=== PATIENT | male | born 1940 | race Caucasian/White ===

== ENCOUNTER 2016-12-20 12:05 | Inpatient (IN) | payer MEDICARE ==
[~2016-12-20 12:05] MED LIST: 1-ME1LIQ PO; ASPI81CH5 CHEW; CENTTAB9 PO; FISH500C PO; TOPR200T PO
[2016-12-20 12:07] VITALS: BP 147/78; PULSE 78; RESP 15; TEMP 97.7; O2SAT 90
--- NOTE | 2016-12-20 12:26 | PD ---
Physical Exam Time Seen by Provider: 12:24 Narrative 76 y/o male with SOB for one month. He has being referred to Dr. Motley, first appointment next week. Today he went to his office to drop of some information and he was referred here by his office. He endorses a cough and some abck pain as well. Vital signs reviewed. Seen at triage desk. Awaiting bed placement. Data Data Last Documented VS Vital Signs Date Time Temp Pulse Resp B/P Pulse Ox O2 Delivery O2 Flow Rate FiO2 12/20/16 12:07 97.7 78 15 147/78 90 MDM Medical Record Reviewed: Yes Supervised Visit with CASH: No Wali Haney Dec 20, 2016 12:26
[2016-12-20] MEDS ORDERED: SODIUM CHLORIDE 0.9% FLUSH 10 ML FLUSH IVF PRN (14:45)
--- NOTE | 2016-12-20 15:16 | RADRPT ---
EXAM DATE/TIME: 12/20/2016 14:56 [facility] COMPARISON: No previous studies available for comparison. INDICATIONS : Short of breath for a few years, [place]acent[place] MEDICAL HISTORY : former smoker SURGICAL HISTORY : thoracentesis ENCOUNTER: Initial ACUITY: 1 day PAIN SCORE: 0/10 LOCATION: Bilateral chest FINDINGS: The exam demonstrates a large left-sided effusion and compressive atelectasis in the left lower lobe. There is hilar prominence bilaterally. Hilar adenopathy is not excluded. The heart is mildly enlarge d. There are dense interstitial changes within the pulmonary parenchyma. The bony structures are bhumi sly intact. CONCLUSION: 1. Large left pleural effusion. 2. Possible hilar adenopathy. Jaren De La Paz MD on December 20, 2016 at 15:13 Board Certified Radiologist. This report was verified electronically.
[2016-12-20 15:37] VITALS: BP 159/93; PULSE 75; RESP 24; O2SAT 96
[2016-12-20 15:46] LABS: AUTOMATED NEUTROPHIL # 4.5 TH/MM3 (1.8-7.7); BASOPHIL % 0.3 % (0.0-2.0); EOSINOPHIL # 0.1 TH/MM3 (0-0.4); EOSINOPHIL % 1.4 % (0.0-4.0); HEMATOCRIT 49.9 % (39.0-51.0); HEMO FLAGS DIFF FINAL; LYMPH % 14.6 % (9.0-44.0); LYMPHOCYTE # 0.9 TH/MM3 (1.0-4.8); MEAN CELL VOLUME 91.7 FL (80.0-100.0); MEAN CORPUSCULAR HEMOGLOBIN 31.9 PG (27.0-34.0); MEAN CORPUSCULAR HGB CONC 34.8 % (32.0-36.0); MONO % 7.8 % (0.0-8.0); NEUT % 75.9 % (16.0-70.0); PLATELET COUNT 207 TH/MM3 (150-450); RED BLOOD COUNT 5.44 MIL/MM3 (4.50-5.90); RED CELL DISTRIBUTION WIDTH 14.3 % (11.6-17.2); WHITE BLOOD COUNT 5.9 TH/MM3 (4.0-11.0)
--- NOTE | 2016-12-20 15:55 | PD ---
HPI Chief Complaint: Respiratory Symptoms Time Seen by Provider: 14:37 Travel History International Travel<30 days: No Contact w/Intl Traveler<30days: No Traveled to known affect area: No History of Present Illness HPI sent from dr morrison's office since pt noted to be sob and hypoxemic at office, h/ o diagnostic thoracentesis for which he doesn't have diagnosis results. PFSH Past Medical History Cardiac Catheterization: Yes (2004) Cardiovascular Problems: Yes Hypertension: Yes Respiratory: Yes Social History Alcohol Use: Yes (1 BEER/DAY) Tobacco Use: No Substance Use: No Allergies-Medications (Allergen,Severity, Reaction): Coded Allergies: No Known Allergies (Unverified , 12/14/11) Reported Meds & Prescriptions Reported Meds & Active Scripts Active Reported Fish Oil 500 Mg Cap 500 Mg PO DAILY Centrum (Multivitamins) Tab 1 Tab PO DAILY [place] Children's Aspirin (Aspirin) 81 Mg Chew 81 Mg CHEW DAILY Toprol Xl (Metoprolol Succinate) 200 Mg Tab 200 Mg PO DAILY Amlodipine Besylate 10 Mg Tab 10 Mg PO DAILY Review of Systems Except as stated in HPI: all other systems reviewed are Neg Respiratory: Positive: Shortness of Breath Physical Exam Narrative GENERAL: SKIN: Warm and dry. HEAD: Atraumatic. Normocephalic. EYES: Pupils equal and round. No scleral icterus. No injection or drainage. ENT: No nasal bleeding or discharge. Mucous membranes pink and moist. NECK: Trachea midline. No JVD. CARDIOVASCULAR: Regular rate and rhythm. RESPIRATORY: No accessory muscle use. Clear to auscultation on right lung, but only to apex of left lung. no wheezing or stridor GASTROINTESTINAL: Abdomen soft, non-tender, nondistended. Hepatic and splenic margins not palpable. MUSCULOSKELETAL: Extremities without clubbing, cyanosis, or edema. No obvious deformities. NEUROLOGICAL: Awake and alert. No obvious cranial nerve deficits. Motor grossly within normal limits. Five out of 5 muscle strength in the arms and legs. Normal speech. PSYCHIATRIC: Appropriate mood and affect; insight and judgment normal. Data Data Last Documented VS Vital Signs Date Time Temp Pulse Resp B/P Pulse Ox O2 Delivery O2 Flow Rate FiO2 12/20/16 15:37 75 24 159/93 96 Nasal Cannula 3 12/20/16 12:07 97.7 Orders Complete Blood Count With Diff (12/20/16 14:42) Comprehensive Metabolic Panel (12/20/16 14:42) B-Type Natriuretic Peptide (12/20/16 14:42) Act Partial Throm Time (Ptt) (12/20/16 14:42) Prothrombin Time / Inr (Pt) (12/20/16 14:42) Ckmb (Isoenzyme) Profile (12/20/16 14:42) Troponin I (12/20/16 14:42) Iv Access Insert/Monitor (12/20/16 14:42) Electrocardiogram (12/20/16 14:42) Ecg Monitoring (12/20/16 14:42) Oximetry (12/20/16 14:42) Oxygen Administration (12/20/16 14:42) Chest, Single Ap (12/20/16 14:42) Sodium Chloride 0.9% Flush (Ns Flush) (12/20/16 14:45) Labs Laboratory Tests Test 12/20/16 15:30 White Blood Count 5.9 TH/MM3 Red Blood Count 5.44 MIL/MM3 Hemoglobin 17.4 GM/DL Hematocrit 49.9 % Mean Corpuscular Volume 91.7 FL Mean Corpuscular Hemoglobin 31.9 PG Mean Corpuscular Hemoglobin 34.8 % Concent Red Cell Distribution Width 14.3 % Platelet Count 207 TH/MM3 Mean Platelet Volume 8.2 FL Neutrophils (%) (Auto) 75.9 % Lymphocytes (%) (Auto) 14.6 % Monocytes (%) (Auto) 7.8 % Eosinophils (%) (Auto) 1.4 % Basophils (%) (Auto) 0.3 % Neutrophils # (Auto) 4.5 TH/MM3 Lymphocytes # (Auto) 0.9 TH/MM3 Monocytes # (Auto) 0.5 TH/MM3 Eosinophils # (Auto) 0.1 TH/MM3 Basophils # (Auto) 0.0 TH/MM3 CBC Comment DIFF FINAL Differential Comment MDM Medical Decision Making Medical Screen Exam Complete: Yes Emergency Medical Condition: Yes Medical Record Reviewed: Yes Differential Diagnosis pleural effusion, pna, chf Narrative Course see above Critical Care Narrative CRITICAL CARE NOTE: With evaluation of the patient, labs, EKG, receipt of radiologic studies, administration of medications, reevaluation the patient and discussion of the patient with the admitting physicians, the total critical care time was [45] minutes. Time to perform other separately billable procedures was not included in the critical care time. Diagnosis Primary Impression: large left pleural effusion Additional Impression: mild hypoxemia due to pleural effusion Admitting Information Admitting Physician Requests: Admit Ravi Romero MD Dec 20, 2016 15:55
[2016-12-20 15:58] LABS: ANION GAP 10 MEQ/L (5-15); AST (GOT) 35 U/L (15-37); BICARBONATE 27.5 MEQ/L (21.0-32.0); BLOOD UREA NITROGEN 19 MG/DL (7-18); CHLORIDE 104 MEQ/L (98-107); GLOMERULAR FILTRATION RATE 51 ML/MIN (>89); POTASSIUM 3.2 MEQ/L (3.5-5.1); SODIUM (NA) 141 MEQ/L (136-145)
[2016-12-20 16:03] LABS: ALKALINE PHOSPHATASE 156 U/L (45-117); ALT (GPT) 31 U/L (12-78); TOTAL BILIRUBIN ADULT 0.8 MG/DL (0.2-1.0)
[2016-12-20 16:07] LABS: CREATINE KINASE 44 U/L (39-308)
[2016-12-20 16:08] LABS: APTT (PATIENT) 30.3 SEC (24.3-30.1); PROTHROMBIN TIME - PATIENT 10.9 SEC (9.8-11.6)
[2016-12-20] MEDS ORDERED: SODIUM CHLORIDE 0.9% FLUSH 10 ML FLUSH IV FLUSH PRN (16:45)
[2016-12-20] MEDS ORDERED: ONDANSETRON HCL 4 MG/2 ML VIAL IVP PRN (16:45)
[2016-12-20] MEDS ORDERED: ACETAMINOPHEN 325 MG TAB PO PRN ×2 (16:45)
[2016-12-20] MEDS ORDERED: RESP: ALBUTEROL 2.5 MG/IPRATROPIUM 0.5 MG NEB (PRN) NEB (16:45)
[2016-12-20] MEDS ORDERED: NALOXONE HCL 0.4 MG/ML AMP IV PRN (16:45)
[2016-12-20] MEDS ORDERED: ACETAMINOPHEN/HYDROcodone 325 MG/5 MG TAB PO PRN (16:45)
[2016-12-20] MEDS ORDERED: TEMAZEPAM 15 MG CAP PO PRN (16:45)
--- NOTE | 2016-12-20 17:02 | HHI.HP ---
cc: Jose Motley MD [facility] Service [facility] Primary Care Physician Jose Motley MD Admission Diagnosis LARGE LEFT PLEURAL EFFUSION WITH HYPOXEMIA Diagnoses: Chief Complaint: shortness of breath, hypoxia Travel History International Travel<30 Days: No Contact w/Intl Traveler <30 Da: No Traveled to Known Affected Are: No History of Present Illness Written by Florence Munoz, acting as scribe for Dr. Martinez on 12/20/16 at 17:34. 76-year-old male with history of hypertension, hyperlipidemia, BPH, presents with a one-month history of shortness of breath. The patient was at his district associate judge Dr. Motley's office today, who referred him to the ER secondary to shortness of breath and hypoxia. The patient reports about a 1 month ago he took a vacation in [place] where he noticed he was becoming more short of breath, difficulty walking up stairs. He went to the ER in [place], admitted for 5 days, he was diagnosed with pleural effusion, had thoracentesis of the left lung, removed over 2L of fluid. He does not know results of his thoracentesis however he was sent home with oral antibiotics and an unknown inhaler. He went to district associate judge Dr. Motley's office today to start paperwork for his upcoming initial appointment on 12/27, when they noticed him to be more short of breath and therefore referred him to the ER. The patient reports a recent nonproductive dry cough. He denies fevers/chill but does report occasional night sweats over the past week. He endorses significant dyspnea on exertion, alleviated by rest. He denies leg swelling, orthopnea. He reports a 20lbs weight loss in the past 6 months, partially intentional. The patient denies any diagnosis of COPD although does have a history of tobacco use, quit 40years ago. He also denies any history of CAD, although had nuclear stress test in 2011 that showed "moderate sized, mild severity, posterobasal and inferior perfusion defect without evidence of redistribution". The patient also reports history of cardiac catheterization many years ago that was reportedly unremarkable. The patient also reports over the past few days he has noticed bright red blood in his stools. He reports chronic constipation and has a history of hemorrhoids diagnosed on colonoscopy in the past. He believes the rectal bleeding is the same as his prior hemorrhoidal bleeding. Otherwise, he has no other medical complaints at this time. Review of Systems Except as stated in HPI: all other systems reviewed are Neg Past Family Social History Past Medical History Hypertension CAD Possible COPD Hyperlipidemia Colon polyps BPH Head Trauma after syncope/fall, reports "mild head bleed" in Past Surgical History Cardiac catheterization many years ago Tonsillectomy Colonoscopy Reported Medications Fish Oil 500 Mg Cap 500 Mg PO DAILY Centrum (Multivitamins) Tab 1 Tab PO DAILY [employer] Children's Aspirin (Aspirin) 81 Mg Chew 81 Mg CHEW DAILY Toprol Xl (Metoprolol Succinate) 200 Mg Tab 200 Mg PO DAILY Amlodipine Besylate 10 Mg Tab 10 Mg PO DAILY Allergies: Coded Allergies: No Known Allergies (Unverified , 12/14/11) Active Ordered Medications Current Medications Medications (Trade) Dose Ordered Sig/Jung Route Start Time Stop Time Status Last Admin (NS Flush) 2 ml UNSCH PRN IVF 12/20/16 14:45 (NS Flush) 2 ml UNSCH PRN IV FLUSH 12/20/16 16:45 UNV (NS Flush) 2 ml BID IV FLUSH 12/20/16 21:00 UNV (Tylenol) 650 mg Q4H PRN PO 12/20/16 16:45 UNV (Zofran Inj) 4 mg Q6H PRN IVP 12/20/16 16:45 UNV (Restoril) 15 mg HS PRN PO 12/20/16 16:45 UNV (Tylenol) 650 mg Q6H PRN PO 12/20/16 16:45 UNV ([place] 5-325 Mg) 1 tab Q4H PRN PO 12/20/16 16:45 UNV (Narcan Inj) 0.4 mg UNSCH PRN IV 12/20/16 16:45 UNV Family History Mother with CAD, CABG in her 80s Father with dementia and emphysema Social History Quit smoking 1PPD tobacco 40 years ago Occasional alcohol use with 1-2 beers maybe once a month Denies any illicit drug use Physical Exam Vital Signs Vital Signs Date Time Temp Pulse Resp B/P Pulse Ox O2 Delivery O2 Flow Rate FiO2 6/5/17 15:37 75 24 159/93 96 Nasal Cannula 3 12/20/16 14:47 97 Nasal Cannula 3 12/20/16 12:07 97.7 78 15 147/78 90 Physical Exam GENERAL: Well-nourished, well-developed elderly male patient in NAD. SKIN: Warm and dry. No rash. HEAD: Normocephalic. Atraumatic. EYES: Pupils equal and round. No scleral icterus. No injection or drainage. ENT: No nasal bleeding or discharge. Mucous membranes pink and moist. NECK: Supple. Trachea midline. CARDIOVASCULAR: Regular rate and rhythm. S1, S2 noted. No murmur appreciated. RESPIRATORY: No accessory muscle use. Breath sounds significantly diminished at left mid to lower lung. GASTROINTESTINAL: Abdomen soft, non-tender, nondistended. Normoactive bowel sounds x4. MUSCULOSKELETAL: No obvious deformities. Extremities without clubbing, cyanosis , or edema. NEUROLOGICAL: Awake and alert. No obvious cranial nerve deficits. Motor grossly within normal limits. Normal speech. PSYCHIATRIC: Appropriate mood and affect; insight and judgment normal. Laboratory Laboratory Tests Test 12/20/16 15:30 White Blood Count 5.9 Red Blood Count 5.44 Hemoglobin 17.4 Hematocrit 49.9 Mean Corpuscular Volume 91.7 Mean Corpuscular Hemoglobin 31.9 Mean Corpuscular Hemoglobin 34.8 Concent Red Cell Distribution Width 14.3 Platelet Count 207 Mean Platelet Volume 8.2 Neutrophils (%) (Auto) 75.9 Lymphocytes (%) (Auto) 14.6 Monocytes (%) (Auto) 7.8 Eosinophils (%) (Auto) 1.4 Basophils (%) (Auto) 0.3 Neutrophils # (Auto) 4.5 Lymphocytes # (Auto) 0.9 Monocytes # (Auto) 0.5 Eosinophils # (Auto) 0.1 Basophils # (Auto) 0.0 CBC Comment DIFF FINAL Differential Comment Prothrombin Time 10.9 Prothromb Time International 1.0 Ratio Activated Partial 30.3 Thromboplast Time Sodium Level 141 Potassium Level 3.2 Chloride Level 104 Carbon Dioxide Level 27.5 Anion Gap 10 Blood Urea Nitrogen 19 Creatinine 1.37 Estimat Glomerular Filtration 51 Rate Random Glucose 94 Calcium Level 9.7 Total Bilirubin 0.8 Aspartate Amino Transf 35 (AST/SGOT) Alanine Aminotransferase 31 (ALT/SGPT) Alkaline Phosphatase 156 Total Creatine Kinase 44 Troponin I LESS THAN 0.02 B-Type Natriuretic Peptide 66 Total Protein 7.8 Albumin 3.6 Result Diagram: 12/20/16 1530 12/20/16 1530 Imaging Last Impressions Chest X-Ray 12/20/16 1442 Signed Impressions: Service Date/Time: Tuesday, December 20, 2016 14:56 - CONCLUSION: 1. Large left pleural effusion. 2. Possible hilar adenopathy. Jaren De La Paz MD Assessment and Plan Problem List: (1) Pleural effusion ICD Code: J90 Status: Acute Assessment and Plan 76-year-old male with history of hypertension, CAD, COPD, hyperlipidemia, BPH, presents with a one-month history of shortness of breath. The patient was at his district associate judge Dr. Motley's office today, who referred him to the ER secondary to shortness of breath and hypoxia. Left Pleural Effusion: Unclear etiology. Afebrile, no leukocytosis. CXR images reviewed, shows large left pleural effusion with possible hilar adenopathy. O2 sat 90% on RA upon arrival. -Consult district associate judge Dr. Motley -Ordered diagnostic and therapeutic thoracentesis -Duonebs q2h prn -O2 as needed -obtain records from previous hospitalization Possible COPD: patient denies diagnosis of this however has history of tobacco use -continue duonebs prn -pulmonology consulted as above HTN/CAD/HLD: chronic, stable -continue patient's home medications including metoprolol and norvasc after RN to verify home meds -aspirin on hold for thoracentesis -monitor BP, adjust antihypertensives as needed YADI: Cr 1.37, unclear if acute vs chronic. Previous labs 2011 with Cr 0.98. -monitor BMP -avoid nephrotoxins Hypokalemia: K 3.2. -give po KCl replacement -repeat BMP in the am BRBPR: suspect hemorrhoid bleeding, diagnosed on previous colonoscopy. -Patient counseled on avoiding constipation. -start on Gianna-Colace 1 tab po bid -monitor for constipation -monitor H&H, currently Hgb stable at 17.4 All other medical conditions stable, continue home medications once med rec updated. DVT Prophylaxis: teds/SCDs, avoid chemical prophylaxis with upcoming thoracentesis This note was transcribed by jt Munoz. I, Dr. Zacarias Martinez personally performed the history, physical exam, and medical decision making; and confirmed the accuracy of the information in the transcribed note. Authenticated by Dr. Zacarias Martinez on 12/20/16 at 18:34. Discussed Condition With Patient, ER MD, MET[employer]TER Physician Certification 2 Midnight Certification Type: Admission for Inpatient Services Order for Inpatient Services The services are ordered in accordance with Medicare regulations or non- Medicare payer requirements, as applicable. In the case of services not specified as inpatient-only, they are appropriately provided as inpatient services in accordance with the 2-midnight benchmark. Estimated LOS (days): 2 days is the estimated time the patient will need to remain in the hospital, assuming treatment plan goals are met and no additional complications. Post-Hospital Plan: Home Florence Munoz PA-C Dec 20, 2016 17:02 Zacarias Martinez MD Dec 20, 2016 18:34
[2016-12-20 17:04] VITALS: BP 142/88; PULSE 79; RESP 16; O2SAT 95
[2016-12-20 18:00] VITALS: BP 140/80
[2016-12-20] MEDS ORDERED: POTASSIUM CHLORIDE 20 MEQ CONTROLLED RELEASE TAB PO ONE (18:00)
[2016-12-20 20:00] VITALS: BP 164/86; PULSE 81; RESP 18; TEMP 97; O2SAT 91
[2016-12-20] MEDS: DOCUSATE SODIUM 50 MG/SENNA 8.6 MG TAB PO SCH (20:47)
[2016-12-20] MEDS: SODIUM CHLORIDE 0.9% FLUSH 10 ML FLUSH IV FLUSH SCH (20:48)
[2016-12-20] MEDS ORDERED: ENALAPRILAT 1.25 MG/ML VIAL IV PUSH PRN (21:00)
[2016-12-21] VITALS (9 sets, daily range): BP systolic 136–163; BP diastolic 75–91; PULSE 74–88; RESP 16–20; TEMP 96.4–98.7; O2SAT 90–96
[2016-12-21 07:08] LABS: AUTOMATED NEUTROPHIL # 3.3 TH/MM3 (1.8-7.7); BASOPHIL % 0.7 % (0.0-2.0); EOSINOPHIL # 0.1 TH/MM3 (0-0.4); EOSINOPHIL % 3.1 % (0.0-4.0); HEMATOCRIT 45.8 % (39.0-51.0); HEMO FLAGS DIFF FINAL; LYMPH % 14.2 % (9.0-44.0); LYMPHOCYTE # 0.7 TH/MM3 (1.0-4.8); MEAN CELL VOLUME 92.3 FL (80.0-100.0); MEAN CORPUSCULAR HEMOGLOBIN 30.9 PG (27.0-34.0); MEAN CORPUSCULAR HGB CONC 33.4 % (32.0-36.0); MONO % 14.2 % (0.0-8.0); NEUT % 67.8 % (16.0-70.0); PLATELET COUNT 183 TH/MM3 (150-450); RED BLOOD COUNT 4.96 MIL/MM3 (4.50-5.90); RED CELL DISTRIBUTION WIDTH 14.5 % (11.6-17.2); WHITE BLOOD COUNT 4.8 TH/MM3 (4.0-11.0)
[2016-12-21 07:45] LABS: ALKALINE PHOSPHATASE 139 U/L (45-117); ALT (GPT) 24 U/L (12-78); ANION GAP 7 MEQ/L (5-15); AST (GOT) 27 U/L (15-37); BICARBONATE 27.6 MEQ/L (21.0-32.0); BLOOD UREA NITROGEN 16 MG/DL (7-18); CHLORIDE 108 MEQ/L (98-107); GLOMERULAR FILTRATION RATE 68 ML/MIN (>89); SODIUM (NA) 143 MEQ/L (136-145); TOTAL BILIRUBIN ADULT 0.6 MG/DL (0.2-1.0)
[2016-12-21 07:54] LABS: POTASSIUM 2.9 MEQ/L (3.5-5.1)
[2016-12-21] MEDS: METOPROLOL SUCCINATE 50 MG EXTENDED RELEASE TAB PO SCH (08:31)
[2016-12-21] MEDS: SODIUM CHLORIDE 0.9% FLUSH 10 ML FLUSH IV FLUSH SCH ×2 (08:34→21:30)
--- NOTE | 2016-12-21 10:23 | HHI.PR ---
Subjective Remarks Follow-up left large pleural effusion 12/21/16-patient seen and examined reports some continued shortness of breath, low potassium and blood pressure slightly up. Objective Vitals Vital Signs Date Time Temp Pulse Resp B/P Pulse Ox O2 Delivery O2 Flow Rate FiO2 12/21/16 09:31 98.0 85 20 149/85 91 12/21/16 08:34 96.6 85 20 160/85 91 12/21/16 04:00 97.0 81 18 160/78 92 12/21/16 00:00 96.7 88 18 147/79 91 12/20/16 20:00 94 Nasal Cannula 3.00 12/20/16 20:00 97.0 81 18 164/86 91 12/20/16 18:00 77 24 140/80 95 Nasal Cannula 3 12/20/16 17:04 79 16 142/88 95 Nasal Cannula 3 12/20/16 15:37 75 24 159/93 96 Nasal Cannula 3 12/20/16 14:47 97 Nasal Cannula 3 12/20/16 12:07 97.7 78 15 147/78 90 Result Diagram: 12/21/1662612/21/16626 Imaging Last Impressions Chest X-Ray 12/20/16 1442 Signed Impressions: Service Date/Time: Tuesday, December 20, 2016 14:56 - CONCLUSION: 1. Large left pleural effusion. 2. Possible hilar adenopathy. Jaren De La Paz MD Objective Remarks GENERAL: NAD SKIN: Warm and dry. HEAD: Normocephalic. EYES: No scleral icterus. No injection or drainage. NECK: Supple, trachea midline. No JVD or lymphadenopathy. CARDIOVASCULAR: Regular rate and rhythm without murmurs, gallops, or rubs. RESPIRATORY: Breath sounds decrease L>R . No accessory muscle use. GASTROINTESTINAL: Abdomen soft, non-tender, nondistended. MUSCULOSKELETAL: No cyanosis, or edema. BACK: Nontender without obvious deformity. No CVA tenderness. A/P Problem List: (1) Pleural effusion ICD Code: J90 Status: Acute (2) Benign hypertension ICD Code: I10 Status: Acute (3) Hypokalemia ICD Code: E87.6 Status: Acute Assessment and Plan 76-year-old man with Left Pleural Effusion: Unclear etiology. -Consult preparer making department Dr. Motley -Plan for diagnostic and therapeutic thoracentesis today 12/21/16 -Duo nebs q2h prn, O2 as needed -obtain records from previous hospitalization Possible COPD: patient denies diagnosis of this however has history of tobacco use -continue duo nebs prn -pulmonology consulted as above HTN/CAD/HLD: chronic, stable -continue patient's home medications including metoprolol and norvasc after RN to verify home meds -aspirin on hold for thoracentesis -Resume Toprol-XL YADI: Cr 1.37, unclear if acute vs chronic. Previous labs 2011 with Cr 0.98. -monitor BMP -avoid nephrotoxins Hypokalemia: -give po KCl replacement 80 mEq today and monitor K BRBPR: suspect hemorrhoid bleeding, diagnosed on previous colonoscopy. -Patient counseled on avoiding constipation. -Continue on Gianna-Colace 1 tab po bid -monitor for constipation -monitor H&H, currently Hgb stable at 17.4 on admission All other medical conditions stable, continue home medications once med rec updated. DVT Prophylaxis: teds/SCDs, avoid chemical prophylaxis with upcoming thoracentesis Zacarias Martinez MD Dec 21, 2016 10:23
[2016-12-21] MEDS ORDERED: POTASSIUM CHLORIDE 10 MEQ CONTROLLED RELEASE TAB PO ONE (10:30)
--- NOTE | 2016-12-21 10:57 | RADRPT ---
EXAM DATE/TIME: 12/21/2016 10:32 [facility] COMPARISON: CHEST SINGLE AP, December 20, 2016, 14:56. INDICATIONS : Post left side thoracentesis. MEDICAL HISTORY : former smoker SURGICAL HISTORY : thoracentesis ENCOUNTER: Initial ACUITY: 1 day PAIN SCORE: 0/10 LOCATION: Bilateral chest FINDINGS: Single view of the chest demonstrates interval left thoracentesis. There is near complete removal of the patient's left effusion with consolidative change is seen in the left lung base. No pneumothorax is seen. The heart is normal size. Bony structures are intact. CONCLUSION: 1. No pneumothorax identified following left-sided thoracentesis. Jaren De La Paz MD on December 21, 2016 at 10:54 Board Certified Radiologist. This report was verified electronically.
--- NOTE | 2016-12-21 11:10 | RADRPT ---
EXAM DATE/TIME: 12/21/2016 09:46 [facility] COMPARISON: No previous studies available for comparison. INDICATIONS : Left pleural effusion. MEDICAL HISTORY : Hypercholesterolemia. Hypertension. Coronary artery disease. Tobacco use. SURGICAL HISTORY : Tonsillectomy. Cardiac cath. ENCOUNTER: Initial ACUITY: 2 weeks PAIN SCORE: 1/10 LOCATION: Left chest FLUID: Total volume of 2,400 cc of clear, red fluid was removed. Fluid was sent to lab for ordered studies. TECHNIQUE: 1. Ultrasound guidance for thoracentesis. 2. Thoracentesis. The risks, benefits, and alternatives to ultrasound guided thoracentesis were explained to the patien t in lay simple terms, including the risk of bleeding and infection. Written and verbal informed con sent was obtained. Appropriate area for thoracentesis was marked under ultrasound guidance with the patient in the uprig ht position. Overlying skin was prepped and draped in the usual sterile fashion and with local anest hetic, a dermatotomy was made with an 11 blade scalpel. A 6 [place] thoracentesis catheter was placed in the pleural space and fluid was removed. Catheter was then removed and a sterile dressing applie d. There were no immediate complications. The patient tolerated the procedure well and the left the ultrasound suite in stable condition. Chest radiograph is to be obtained. CONCLUSION: Uncomplicated ultrasound guided thoracentesis. Jaren De La Paz MD on December 21, 2016 at 11:08 Board Certified Radiologist. This report was verified electronically.
[2016-12-21] MEDS ORDERED: POTASSIUM CHLORIDE 20 MEQ CONTROLLED RELEASE TAB PO ONE (12:30)
[2016-12-21] MEDS: DOCUSATE SODIUM 50 MG/SENNA 8.6 MG TAB PO SCH ×2 (12:53→21:29)
[2016-12-21 13:05] LABS: PLEURAL FLUID LYMPHS 85 %
[2016-12-21] MEDS ORDERED: IOHEXOL 350 MG/ML 10 ML VIAL (for RAD DIAG) IV ONE (14:23)
[2016-12-21] MEDS ORDERED: AMLO10 PO (15:48)
[2016-12-21] MEDS ORDERED: METO100T PO ×2 (15:48)
[2016-12-21] MEDS ORDERED: METO50TA PO (15:48)
[2016-12-21] MEDS ORDERED: LOVA20TA PO (15:48)
--- NOTE | 2016-12-21 15:50 | RADRPT ---
EXAM DATE/TIME: 12/21/2016 14:17 [facility] COMPARISON: CHEST EXPIRATION ONLY, December 21, 2016, 10:32. CHEST SINGLE AP, December 20, 2016, 14:56. US GUIDED THORA CENTESIS LEFT, December 21, 2016, 9:46. INDICATIONS : Recurrent left pleural effusion post thoracentesis. IV CONTRAST: 60 cc Omnipaque 350 (iohexol) IV RADIATION DOSE: 5.29 CTDIvol (mGy) MEDICAL HISTORY : Cardiovascular disease. Hypertension. SURGICAL HISTORY : None. ENCOUNTER: Initial ACUITY: 1 month PAIN SCALE: 0/10 LOCATION: Left chest TECHNIQUE: Volumetric scanning of the chest was performed. Using automated exposure control and adjustment of t he mA and/or kV according to patient size, radiation dose was kept as low as reasonably achievable to obtain optimal diagnostic quality images. FINDINGS: There is a mild amount of heterogeneous density fluid in the left lower chest measuring up to 1.6 cm in dimension. There is some fluid tracking along the inferior aspect of the major fissure. There is also some nodular thickening of the pleura throughout the left lower chest, measuring up to 1.0 cm i n dimension. There is some mild consolidation adjacent to the fluid in the costophrenic angle with a ir bronchograms. Several subpleural cysts are seen in the posterior lower lungs bilaterally. Modera te severity upper lobe emphysema, right greater than left. No focal infiltrates in the right lung. No evidence of pneumothorax. There is good delineation of the great vessels and mediastinum. Pretracheal lymph node measures 2.1 cm. Right subcarinal node measures 1.7 cm. Right suprahilar node measures 2.5 cm. CONCLUSION: 1. Small amount of fluid in the left pleural space and patchy areas of pleural thickening in the left chest. There is also small area of infiltrate at the left base. 2. There are multiple mildly enlarged right hilar and middle mediastinal nodes measuring up to 2.5 cm . 3. No evidence of pneumothorax. Manjit Maharaj MD on December 21, 2016 at 15:40 Board Certified Radiologist. This report was verified electronically.
--- NOTE | 2016-12-21 16:33 | MB ---
cc: Jose BREEN M.D. DATE OF CONSULTATION: 12/21/2016 REASON FOR CONSULTATION: Pulmonary consultation for pleural effusion. HISTORY Mr. Austin is a 76-year-old white male who recently returned from [place], where he had been hospitalized for 5 days with a large left pleural effusion. He tells me that they drained about 2 liters of fluid off of him, told him that the cultures and cytology were negative and encouraged him to follow up with his local physicians upon returning to [place]. He had contacted my office through his primary care physician and we were scheduled to see him next week. Unfortunately became more short of breath and had come into the emergency room yesterday and again he had a large left pleural effusion which was drained yesterday with all cultures cytologies and chemistries pending. He feels much better. He has had no significant prior pulmonary disease. However, he was a two pack per day smoker for about 20 years, quit smoking 35 years ago. He also has an interesting history as a child from the age of about 5-18. 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 The young children used to play in the area and slide down the gypsum board into a river where they swam. He has had no associated symptoms in the chest such as cough or congestion. No hemoptysis. He has a dull ache on that side that has been present even after the fluid is drained. He has also had an unexplained 15-20 pounds with weight loss over the last 6 months although his appetite is excellent. PAST MEDICAL HISTORY 1. Hypertension. 2. He had a fall with some type of mild intercerebral bleed in August but he was in [place] we do not have those records. There is a history of having had a catheterization with mild coronary disease many years ago. 3. He has had colon polyps 4. Benign prostatic hypertrophy. 5. He has had a previous tonsillectomy. 6. Normal colonoscopy. ALLERGIES None known. MEDICATIONS: Medications were reviewed in the EMR. SOCIAL HISTORY living with his . 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 REVIEW OF SYSTEMS Review of systems other than that noted above he has had no fevers. He does not feel ill, he has had no GI symptoms. No chronic edema. No history of thromboembolism. PHYSICAL EXAMINATION VITAL SIGNS: 96 degrees, pulse 70, respirations 18, blood pressure is 150/80 and respirations are comfortable at 16, O2 sats 94% room air. HEAD, EYES, EARS, NOSE, AND THROAT: Sclerae anicteric. NECK: No adenopathy in the neck, supraclavicular region. CHEST: Chest is completely clear. No rales, wheezes or rubs. CARDIOVASCULAR SYSTEM: Regular rhythm. No harsh murmur. No audible S3. EXTREMITIES: No edema or calf tenderness. No cyanosis or clubbing. LABORATORY DATA White count 4800, hemoglobin is 15, BUN and creatinine are normal. Alkaline phosphatase is mildly elevated at 140. Initial fluid reports white count is not particularly high at 1600, 57,000 red cells, predominately lymphocytes on the white cells. Chemistries are pending. Cultures and cytology pending. DISCUSSION Mr. Austin presents with a large recurrent left effusion just within a month of having been hospitalized in [place]. The prior history of tobacco use over 20 years and this asbestos exposure is concerning any may have underlying asbestosis more mesothelioma. ASSESSMENT AND PLAN: I have scheduled a CT scan for this afternoon. AP stable and less cultures were positive on the fluid we could probably discharge him and I can continue this evaluation as an outpatient. If in fact this is related to his asbestos exposure the pleural fluid may not be definitive and we may end up needing a thoracoscopic evaluation and biopsy. Further diagnostic and/or therapeutic range will depend on results of the studies and his ongoing clinical course. Thank you for asking me to see him at your consultation. R. MD JEAN Espinosa/theo /1:36 PM /4:18 PM
--- NOTE | 2016-12-21 22:18 | EKG ---
Date Performed: 12/20/2016 Time Performed: 14:53:00 PTAGE: 76 years EKG: Sinus rhythm NONSPECIFIC T-WAVE ABNORMALITY Since previous tracing, no significant change noted BORDERLINE ECG PREVIOUS TRACING : 12/14/2011 14.57.44 DOCTOR: Lia Rodriguez Interpretating Date/Time 12/21/2016 22:17:00
[2016-12-22] VITALS: BP 154/86; PULSE 75; RESP 18; TEMP 98.2; O2SAT 94
[2016-12-22 04:00] VITALS: BP 135/70; PULSE 70; RESP 16; TEMP 98.9; O2SAT 95
[2016-12-22 08:00] VITALS: BP 151/96; PULSE 81; RESP 14; TEMP 96; O2SAT 97
[2016-12-22] MEDS: METOPROLOL SUCCINATE 50 MG EXTENDED RELEASE TAB PO SCH (08:10)
[2016-12-22] MEDS: DOCUSATE SODIUM 50 MG/SENNA 8.6 MG TAB PO SCH (08:10)
[2016-12-22] MEDS: SODIUM CHLORIDE 0.9% FLUSH 10 ML FLUSH IV FLUSH SCH (08:10)
--- NOTE | 2016-12-22 08:54 | HHI.PR ---
Subjective Remarks Follow-up left large pleural effusion 12/21/16-patient seen and examined reports some continued shortness of breath, low potassium and blood pressure slightly up. 12/22/16-patient seen and examined, he is status post left thoracentesis with 2.4 L out. Currently denies any chest pain or shortness of breath. Objective Vitals Vital Signs Date Time Temp Pulse Resp B/P Pulse Ox O2 Delivery O2 Flow Rate FiO2 12/22/16 08:00 96.0 81 14 151/96 97 12/22/16 04:00 98.9 70 16 135/70 95 12/22/16 00:00 98.2 75 18 154/86 94 12/21/16 21:20 Nasal Cannula 3.00 12/21/16 20:00 98.7 77 16 136/75 93 12/21/16 16:35 98.2 76 20 160/78 90 12/21/16 12:35 96.4 74 20 163/85 94 12/21/16 11:05 74 16 146/87 96 12/21/16 10:50 96 Nasal Cannula 3.00 12/21/16 10:50 98.1 76 16 150/91 96 12/21/16 10:28 Nasal Cannula 3.00 12/21/16 09:31 98.0 85 20 149/85 91 I/O 12/21/16 12/21/16 12/21/16 12/22/16 12/22/16 12/22/16 07:00 15:00 23:00 07:00 15:00 23:00 Intake Total 480 ml 240 ml Balance 480 ml 240 ml Intake Oral 480 ml 240 ml # Voids 1 5 2 2 Result Diagram: 12/21/16 0627 12/21/16 06 Imaging Last Impressions Thoracentesis Ultrasound 12/21/16 0000 Signed Impressions: Service Date/Time: Wednesday, December 21, 2016 09:46 - CONCLUSION: Uncomplicated ultrasound guided thoracentesis. Jaren De La Paz MD Chest X-Ray 12/21/16 0000 Signed Impressions: Service Date/Time: Wednesday, December 21, 2016 10:32 - CONCLUSION: 1. No pneumothorax identified following left-sided thoracentesis. Jaren De La Paz MD Chest CT 12/21/16 0000 Signed Impressions: Service Date/Time: Wednesday, December 21, 2016 14:17 - CONCLUSION: 1. Small amount of fluid in the left pleural space and patchy areas of pleural thickening in the left chest. There is also small area of infiltrate at the left base. 2. There are multiple mildly enlarged right hilar and middle mediastinal nodes measuring up to 2.5 cm. 3. No evidence of pneumothorax. Manjit Maharaj MD Objective Remarks GENERAL: NAD SKIN: Warm and dry. HEAD: Normocephalic. EYES: No scleral icterus. No injection or drainage. NECK: Supple, trachea midline. No JVD or lymphadenopathy. CARDIOVASCULAR: Regular rate and rhythm without murmurs, gallops, or rubs. RESPIRATORY: Breath sounds decrease L>R . No accessory muscle use. GASTROINTESTINAL: Abdomen soft, non-tender, nondistended. MUSCULOSKELETAL: No cyanosis, or edema. BACK: Nontender without obvious deformity. No CVA tenderness. Procedures US Guided thoracentesis A/P Problem List: (1) Pleural effusion ICD Code: J90 Status: Acute (2) Benign hypertension ICD Code: I10 Status: Acute (3) Hypokalemia ICD Code: E87.6 Status: Acute Assessment and Plan 76-year-old man with Left Pleural Effusion: Unclear etiology. -Appreciate input from environmental planner Dr. Motley -s/p diagnostic and therapeutic thoracentesis 12/21/16 pending cytology and culture report -CT chest noted in review -Duo nebs q2h prn, O2 as needed -obtain records from previous hospitalization Possible COPD: patient denies diagnosis of this however has history of tobacco use -continue duo nebs prn -pulmonology input appreciated HTN/CAD/HLD: chronic, stable -continue patient's home medications including metoprolol and norvasc after RN to verify home meds -Resume aspirin -Continue Toprol-XL YADI: Cr 1.37, unclear if acute vs chronic. Previous labs 2011 with Cr 0.98. -monitor BMP -avoid nephrotoxins Hypokalemia: -Status post KCl replacement BRBPR: suspect hemorrhoid bleeding, diagnosed on previous colonoscopy. -Patient counseled on avoiding constipation. -Continue on Gianna-Colace 1 tab po bid -monitor for constipation -monitor H&H, currently Hgb stable at 17.4 on admission All other medical conditions stable, continue home medications once med rec updated. DVT Prophylaxis: teds/SCDs, avoid chemical prophylaxis with upcoming thoracentesis Zacarias Martinez MD Dec 22, 2016 08:54
[2016-12-22] MEDS ORDERED: VENTAER INH (08:56)
[2016-12-22] MEDS ORDERED: IPRA17I INH (08:56)
--- NOTE | 2016-12-22 08:59 | HHI.DS ---
Discharge Summary Admission Date Dec 20, 2016 at 16:13 Discharge Date: Dec 22, 2016 Admitting Diagnosis LARGE LEFT PLEURAL EFFUSION WITH HYPOXEMIA (1) Pleural effusion ICD Code: J90 (2) Benign hypertension ICD Code: I10 (3) Hypokalemia ICD Code: E87.6 Procedures US Guided thoracentesis Brief History - From Admission Written by Florence Munoz, acting as scribe for Dr. Martinez on 12/20/16 at 17:34. 76-year-old male with history of hypertension, hyperlipidemia, BPH, presents with a one-month history of shortness of breath. The patient was at his tipple mechanic Dr. Motley's office today, who referred him to the ER secondary to shortness of breath and hypoxia. The patient reports about a 1 month ago he took a vacation in [place] where he noticed he was becoming more short of breath, difficulty walking up stairs. He went to the ER in [place], admitted for 5 days, he was diagnosed with pleural effusion, had thoracentesis of the left lung, removed over 2L of fluid. He does not know results of his thoracentesis however he was sent home with oral antibiotics and an unknown inhaler. He went to tipple mechanic Dr. Motley's office today to start paperwork for his upcoming initial appointment on 12/27, when they noticed him to be more short of breath and therefore referred him to the ER. The patient reports a recent nonproductive dry cough. He denies fevers/chill but does report occasional night sweats over the past week. He endorses significant dyspnea on exertion, alleviated by rest. He denies leg swelling, orthopnea. He reports a 20lbs weight loss in the past 6 months, partially intentional. The patient denies any diagnosis of COPD although does have a history of tobacco use, quit 40years ago. He also denies any history of CAD, although had nuclear stress test in 2011 that showed "moderate sized, mild severity, posterobasal and inferior perfusion defect without evidence of redistribution". The patient also reports history of cardiac catheterization many years ago that was reportedly unremarkable. The patient also reports over the past few days he has noticed bright red blood in his stools. He reports chronic constipation and has a history of hemorrhoids diagnosed on colonoscopy in the past. He believes the rectal bleeding is the same as his prior hemorrhoidal bleeding. Otherwise, he has no other medical complaints at this time. CBC/BMP: 12/21/1662612/21/16626 Significant Findings Laboratory Tests Test 12/20/16 12/21/16 12/21/16 15:30 06:27 10:10 Hemoglobin 17.4 GM/DL (13.0-17.0) Neutrophils (%) (Auto) 75.9 % (16.0-70.0) Lymphocytes # (Auto) 0.9 TH/MM3 0.7 TH/MM3 (1.0-4.8) (1.0-4.8) Activated Partial 30.3 SEC Thromboplast Time (24.3-30.1) Potassium Level 3.2 MEQ/L 2.9 MEQ/L (3.5-5.1) (3.5-5.1) Blood Urea Nitrogen 19 MG/DL (7-18) Creatinine 1.37 MG/DL (0.60-1.30) Estimat Glomerular Filtration 51 ML/MIN (>89) 68 ML/MIN (>89) Rate Alkaline Phosphatase 156 U/L 139 U/L (45-117) (45-117) Troponin I LESS THAN 0.02 NG/ML (0.02-0.05) Monocytes (%) (Auto) 14.2 % (0.0-8.0) Chloride Level 108 MEQ/L (98-107) Albumin 3.0 GM/DL (3.4-5.0) Lactate Dehydrogenase 267 U/L (87-241) Pleural Fluid WBC 1659 /MM3 (0-10) Pleural Fluid RBC 84930 /MM3 (0-0) Imaging Last Impressions Thoracentesis Ultrasound 12/21/16 0000 Signed Impressions: Service Date/Time: Wednesday, December 21, 2016 09:46 - CONCLUSION: Uncomplicated ultrasound guided thoracentesis. Jaren De La Paz MD Chest X-Ray 12/21/16 0000 Signed Impressions: Service Date/Time: Wednesday, December 21, 2016 10:32 - CONCLUSION: 1. No pneumothorax identified following left-sided thoracentesis. Jaren De La Paz MD Chest CT 12/21/16 0000 Signed Impressions: Service Date/Time: Wednesday, December 21, 2016 14:17 - CONCLUSION: 1. Small amount of fluid in the left pleural space and patchy areas of pleural thickening in the left chest. There is also small area of infiltrate at the left base. 2. There are multiple mildly enlarged right hilar and middle mediastinal nodes measuring up to 2.5 cm. 3. No evidence of pneumothorax. Manjit Maharaj MD PE at Discharge GENERAL: NAD SKIN: Warm and dry. HEAD: Normocephalic. EYES: No scleral icterus. No injection or drainage. NECK: Supple, trachea midline. No JVD or lymphadenopathy. CARDIOVASCULAR: Regular rate and rhythm without murmurs, gallops, or rubs. RESPIRATORY: Breath sounds decrease L>R . No accessory muscle use. GASTROINTESTINAL: Abdomen soft, non-tender, nondistended. MUSCULOSKELETAL: No cyanosis, or edema. BACK: Nontender without obvious deformity. No CVA tenderness. Hospital Course Patient was admitted secondary to left pleural effusion for which intervention radiology was consulted and he underwent left ultrasound-guided thoracentesis with removal 2.4 L fluid out which was sent for cytology. Pulmonary medicine was consulted. Patient was continued on his medications for other chronic medical conditions. DVT and GI prophylaxis were provided. Prior to discharge, patient's condition improved and vitals remained stable. He will need outpatient follow-up with pulmonary medicine Pt Condition on Discharge: Stable Discharge Disposition: Discharge Home Discharge Time: <= 30 minutes Discharge Instructions DIET: Follow Instructions for: Heart Healthy Diet Activities you can perform: Regular-No Restrictions Follow up Referrals: PCP Follow-up - 1 Week Pulmonology New Medications: Albuterol 18 GM Inh (Ventolin Hfa 18 GM Inh) 90 Mcg/Act Aer 2 PUFF INH Q4-6H PRN SHORTNESS OF BREATH #1 Ref 3 INHALER Ipratropium HFA 12.9 GM Inh (Atrovent HFA 12.9 GM Inh) 17 Mcg/Act Aer 2 PUFF INH Q6HR PRN SHORTNESS OF BREATH #1 Ref 3 INHALER Continued Medications: Amlodipine (Norvasc) 10 Mg Tab 10 MG PO DAILY Blood Pressure Management #30 Ref 0 TAB Lovastatin (Lovastatin) 20 Mg Tab 20 MG PO DAILY Cholesterol Management #30 Ref 0 TAB Metoprolol Tartrate (Metoprolol Tartrate) 100 Mg Tab 100 MG PO AC BREAKFAST #30 Ref 0 TAB Metoprolol Tartrate (Metoprolol Tartrate) 50 Mg Tab 50 MG PO HS #30 Ref 0 TAB Zacarias Martinez MD Dec 22, 2016 08:59
[2016-12-22 09:30] LABS: BICARBONATE 29.7 MEQ/L (21.0-32.0)
[2016-12-22 09:31] LABS: POTASSIUM 3.7 MEQ/L (3.5-5.1)
[2016-12-23 04:08] LABS: BODY FLUID LDH 381 U/L (()); BODY FLUID LDH SOURCE PLEURAL FLUID (())
== END 2016-12-22 10:52 | disposition home or self-care (01) | DRG 188 ==
LOC: NEPC 12:05 → NEDA 16:13 → HOCB 19:18
PROVIDERS: ADMIT Hospitalist; ATTEND Hospitalist
PROC: 0W9B3ZX Drainage of Left Pleural Cavity, Percutaneous Approach, Diagnostic (ICD-10-PCS; principal; 2016-12-21)
DX: J90 Pleural effusion, not elsewhere classified (principal); I10 Essential (primary) hypertension; E78.5 Hyperlipidemia, unspecified; N40.0 Benign prostatic hyperplasia without lower urinary tract symptoms; K59.09 Other constipation; E87.6 Hypokalemia; I25.10 Atherosclerotic heart disease of native coronary artery without angina pectoris; K64.9 Unspecified hemorrhoids; Z77.090 Contact with and (suspected) exposure to asbestos; Z87.891 Personal history of nicotine dependence
CPT/HCPCS: 32555; 71010; 71260; 80048; 80053; 82550; 82945; 83615; 83880; 84157; 84484; 85025; 85610; 85730; 87070; 87205; 88112; 88305; 89051; 93005; C1729; Q9967

== ENCOUNTER 2017-01-03 14:49 | Inpatient (IN) | payer MEDICARE ==
[~2017-01-03] VITALS: Ht 170.2 cm; Wt 71.3 kg
[~2017-01-03 14:49] MED LIST changes: -1-ME1LIQ PO; +AMLO10 PO; -ASPI81CH5 CHEW; -CENTTAB9 PO; -FISH500C PO; +IPRA17I INH; +LOVA20TA PO; +METO100T PO; +METO50TA PO; -TOPR200T PO; +VENTAER INH
[2017-01-03 14:52] VITALS: BP 129/67; PULSE 89; RESP 18; TEMP 97.7; O2SAT 89
[2017-01-03] MEDS ORDERED: IPRAAER INH (16:14)
[2017-01-03] MEDS ORDERED: KRIL1CAP9 PO (16:14)
[2017-01-03] MEDS ORDERED: CENTCHW3 PO (16:14)
[2017-01-03] MEDS ORDERED: ASPI81TA11 PO (16:15)
[2017-01-03] MEDS ORDERED: SODIUM CHLORIDE 0.9% FLUSH 10 ML FLUSH IVF PRN (16:30)
--- NOTE | 2017-01-03 17:17 | PD ---
HPI Chief Complaint: Respiratory Symptoms Time Seen by Provider: 16:11 Travel History International Travel<30 days: No Contact w/Intl Traveler<30days: No Traveled to known affect area: No History of Present Illness HPI The patient 76 and he arrives by private vehicle due to shortness of breath. He has history of left pleural effusion currently undergoing a diagnostic evaluation with Dr. morrison of pulmonology. The patient was discharged from here following admission for the same pleural effusion, about 10 days ago, during which time it was thoracentesed and 2 L of fluid were collected. The patient felt better however shortly following discharge she became short of breath again. He's had no fever or chest pain. He notes profuse night sweats on the left side. He does have an occasional cough which is dry. Evidently he was 84 % pulse oximetry on room air upon arrival however improved to about 99% 2 L nasal cannula. PFSH Past Medical History Asthma: No Heart Rhythm Problems: No Cancer: Yes (skin cancer ) Cardiac Catheterization: Yes (2004) Cardiovascular Problems: Yes High Cholesterol: Yes Chest Pain: No Congestive Heart Failure: No COPD: No Cerebrovascular Accident: No Coronary Artery Disease: Yes Endocrine: No GERD: Yes Genitourinary: Yes Hiatal Hernia: No Hypertension: Yes Immune Disorder: No Kidney Stones: Yes (20 years ago ) Musculoskeletal: No Neurologic: Yes Psychiatric: No Reproductive: No Respiratory: Yes (l pleural effusion with thoracentesis) Migraines: No Seizures: No Sleep Apnea: No Ulcer: No Past Surgical History Abdominal Surgery: No Cardiac Surgery: No Ear Surgery: No Endocrine Surgery: No Eye Surgery: No Genitourinary Surgery: No Gynecologic Surgery: No Oral Surgery: No Thoracic Surgery: Yes (thoracentesis 3 weeks ago) Tonsillectomy: Yes Other Surgery: Yes (thoracentesis ) Social History Alcohol Use: No Tobacco Use: No (1 ppd quit 30 yrs) Substance Use: No Allergies-Medications (Allergen,Severity, Reaction): Coded Allergies: No Known Allergies (Unverified , 01/03/17) Reported Meds & Prescriptions Reported Meds & Active Scripts Active Reported Aspirin EC (Aspirin) 81 Mg Tabdr 81 Mg PO DAILY Centrum Silver (Multiple Vitamins W/ Minerals) 1 Chw Chw 1 Tab PO DAILY Megared [place]-3 Krill Oil (Krill Oil) 500 Mg Cap 1 Cap PO DAILY Combivent Respimat Inh (Ipratropium-Albuterol Inh) 20-100 Penitentiary/Act Aero 1 Puff INH QID Norvasc (Amlodipine Besylate) 10 Mg Tab 10 Mg PO DAILY Metoprolol Tartrate 50 Mg Tab 50 Mg PO HS Metoprolol Tartrate 100 Mg Tab 100 Mg PO AC BREAKFAST Lovastatin 20 Mg Tab 20 Mg PO DAILY Review of Systems Except as stated in HPI: all other systems reviewed are Neg General / Constitutional: No: Fever Physical Exam Narrative GENERAL: 73-year-old male well-nourished well-developed pleasant SKIN: Warm and dry. HEAD: Atraumatic. Normocephalic. EYES: Pupils equal and round. No scleral icterus. No injection or drainage. ENT: No nasal bleeding or discharge. Mucous membranes pink and moist. NECK: Trachea midline. No JVD. CARDIOVASCULAR: Regular rate and rhythm. RESPIRATORY: Decreased breath sounds left side. No significant tachypnea or accessory muscle use. GASTROINTESTINAL: Abdomen soft, non-tender, nondistended. Hepatic and splenic margins not palpable. MUSCULOSKELETAL: Extremities without clubbing, cyanosis, or edema. No obvious deformities. NEUROLOGICAL: Awake and alert. No obvious cranial nerve deficits. Motor grossly within normal limits. Five out of 5 muscle strength in the arms and legs. Normal speech. PSYCHIATRIC: Appropriate mood and affect; insight and judgment normal. Data Data Last Documented VS Vital Signs Date Time Temp Pulse Resp B/P Pulse Ox O2 Delivery O2 Flow Rate FiO2 01/03/17 18:11 80 18 157/86 96 01/03/17 16:42 Nasal Cannula 01/03/17 16:42 2 01/03/17 14:52 97.7 Vital signs are reviewed Orders Electrocardiogram (01/03/17 16:28) Basic Metabolic Panel (Bmp) (01/03/17 16:28) Complete Blood Count With Diff (01/03/17 16:28) Magnesium (Mg) (01/03/17 16:28) Prothrombin Time / Inr (Pt) (01/03/17 16:28) Act Partial Throm Time (Ptt) (01/03/17 16:28) Chest, Single Ap (01/03/17 16:28) Ecg Monitoring (01/03/17 16:28) Iv Access Insert/Monitor (01/03/17 16:28) Oximetry (01/03/17 16:28) Oxygen Administration (01/03/17 16:28) Sodium Chloride 0.9% Flush (Ns Flush) (01/03/17 16:30) Potassium Chloride (Kcl) (01/03/17 18:00) Consult Pulmonology (01/03/17 ) Admit Order (Ed Use Only) (01/03/17 18:43) Admit To Inpatient (01/03/17 ) Vital Signs (Adult) Q4H (01/03/17 18:43) Activity Oob With Assistance (01/03/17 18:43) Diet Heart Healthy (01/03/17 Dinner) Sodium Chloride 0.9% Flush (Ns Flush) (01/03/17 18:45) Sodium Chloride 0.9% Flush (Ns Flush) (01/03/17 21:00) Acetaminophen (Tylenol) (01/03/17 18:45) Ondansetron Inj (Zofran Inj) (01/03/17 18:45) Basic Metabolic Panel (Bmp) (01/04/17 06:00) Complete Blood Count With Diff (01/04/17 06:00) Resp Oxygen Bayron C Titrat 1-4 L (01/03/17 ) Scd Bilateral/Knee High DEVIN.BID (01/03/17 18:43) Naloxone Inj (Narcan Inj) (01/03/17 18:45) Docusate Sodium-Senna (Gianna-Colace) (01/03/17 21:00) Magnesium Hydroxide Liq (Milk Of Magnesi (01/03/17 18:45) Sennosides (Senokot) (01/03/17 18:45) Bisacodyl Supp (Dulcolax Supp) (01/03/17 18:45) Lactulose Liq (Lactulose Liq) (01/03/17 18:45) Inpatient Certification (01/03/17 ) Labs Laboratory Tests Test 01/03/17 16:40 White Blood Count 7.6 TH/MM3 Red Blood Count 5.26 MIL/MM3 Hemoglobin 16.3 GM/DL Hematocrit 48.2 % Mean Corpuscular Volume 91.5 FL Mean Corpuscular Hemoglobin 30.9 PG Mean Corpuscular Hemoglobin 33.8 % Concent Red Cell Distribution Width 13.8 % Platelet Count 311 TH/MM3 Mean Platelet Volume 7.9 FL Neutrophils (%) (Auto) 66.7 % Lymphocytes (%) (Auto) 16.2 % Monocytes (%) (Auto) 15.6 % Eosinophils (%) (Auto) 0.7 % Basophils (%) (Auto) 0.8 % Neutrophils # (Auto) 5.0 TH/MM3 Lymphocytes # (Auto) 1.2 TH/MM3 Monocytes # (Auto) 1.2 TH/MM3 Eosinophils # (Auto) 0.1 TH/MM3 Basophils # (Auto) 0.1 TH/MM3 CBC Comment DIFF FINAL Differential Comment Prothrombin Time 11.2 SEC Prothromb Time International 1.0 RATIO Ratio Activated Partial 30.7 SEC Thromboplast Time Sodium Level 136 MEQ/L Potassium Level 3.0 MEQ/L Chloride Level 99 MEQ/L Carbon Dioxide Level 25.7 MEQ/L Anion Gap 11 MEQ/L Blood Urea Nitrogen 16 MG/DL Creatinine 1.64 MG/DL Estimat Glomerular Filtration 41 ML/MIN Rate Random Glucose 96 MG/DL Calcium Level 9.1 MG/DL Magnesium Level 2.1 MG/DL [facility] Medical Decision Making Medical Screen Exam Complete: Yes Emergency Medical Condition: Yes Medical Record Reviewed: Yes Differential Diagnosis Effusion pneumonia CHF and anemia and renal failure abscess Narrative Course CBC & BMP Diagram 01/03/17 16:40 INR 1.0 CXR: Moderate L pleural effusion Potassium replenished NC 2L maintained d/w Dr Dunbar d/w Dr Frey for [facility] Diagnosis Primary Impression: Pleural effusion Additional Impression: Hypokalemia Admitting Information Admitting Physician Requests: Observation Jaren Garcia MD Jan 03, 2017 17:17
--- NOTE | 2017-01-03 17:35 | RADRPT ---
EXAM DATE/TIME: 01/03/2017 16:31 [facility] COMPARISON: CT THORAX W CONTRAST, December 21, 2016, 14:17. CHEST SINGLE AP, December 20, 2016, 14:56. INDICATIONS : Short of breath. MEDICAL HISTORY : None. SURGICAL HISTORY : None. ENCOUNTER: Initial ACUITY: 1 day PAIN SCORE: 5/10 LOCATION: Bilateral chest FINDINGS: There is a moderate to large left pleural effusion. Some degree of atelectasis or cons olidation at the left lower lobe needs to be suspected. The left upper lung appears relatively clear. The right lung is relatively clear. There is some minimal blunting of the right costophrenic angle suggestive of a minimal right effusion. The left heart border is obscured by the effusion. CONCLUSION: Persistent moderate to large left pleural effusion. Jairo Crowley MD on January 03, 2017 at 17:20 Board Certified Radiologist. This report was verified electronically.
[2017-01-03 17:40] LABS: BASOPHIL # 0.1 TH/MM3 (0-0.2); BASOPHIL % 0.8 % (0.0-2.0); EOSINOPHIL # 0.1 TH/MM3 (0-0.4); EOSINOPHIL % 0.7 % (0.0-4.0); HEMATOCRIT 48.2 % (39.0-51.0); HEMO FLAGS DIFF FINAL; LYMPH % 16.2 % (9.0-44.0); LYMPHOCYTE # 1.2 TH/MM3 (1.0-4.8); MEAN CELL VOLUME 91.5 FL (80.0-100.0); MEAN CORPUSCULAR HEMOGLOBIN 30.9 PG (27.0-34.0); MEAN CORPUSCULAR HGB CONC 33.8 % (32.0-36.0); MONO % 15.6 % (0.0-8.0); NEUT % 66.7 % (16.0-70.0); PLATELET COUNT 311 TH/MM3 (150-450); RED BLOOD COUNT 5.26 MIL/MM3 (4.50-5.90); RED CELL DISTRIBUTION WIDTH 13.8 % (11.6-17.2); WHITE BLOOD COUNT 7.6 TH/MM3 (4.0-11.0)
[2017-01-03 17:47] LABS: APTT (PATIENT) 30.7 SEC (24.3-30.1); PROTHROMBIN TIME - PATIENT 11.2 SEC (9.8-11.6)
[2017-01-03 17:56] LABS: BICARBONATE 25.7 MEQ/L (21.0-32.0); MAGNESIUM 2.1 MG/DL (1.5-2.5)
[2017-01-03] MEDS ORDERED: POTASSIUM CHLORIDE 20 MEQ CONTROLLED RELEASE TAB PO ONE (18:00)
[2017-01-03 18:11] VITALS: BP 157/86; PULSE 80; RESP 18; O2SAT 96
[2017-01-03] MEDS ORDERED: ONDANSETRON HCL 4 MG/2 ML VIAL IVP PRN (18:45)
[2017-01-03] MEDS ORDERED: MAGNESIUM HYDROXIDE SUSP 30 ML CUP PO PRN (18:45)
[2017-01-03] MEDS ORDERED: BISACODYL 10 MG SUPP RECTAL PRN (18:45)
[2017-01-03] MEDS ORDERED: SENNOSIDES 8.6 MG TAB PO PRN (18:45)
[2017-01-03] MEDS ORDERED: LACTULOSE SYRUP 20 GM/30 ML CUP PO PRN (18:45)
[2017-01-03] MEDS ORDERED: SODIUM CHLORIDE 0.9% FLUSH 10 ML FLUSH IV FLUSH PRN (18:45)
[2017-01-03] MEDS ORDERED: NALOXONE HCL 0.4 MG/ML AMP IV PRN (18:45)
[2017-01-03 19:34] VITALS: BP 154/72; PULSE 87; RESP 20; O2SAT 95
[2017-01-03 20:23] VITALS: O2SAT 93
[2017-01-03 21:03] VITALS: BP 159/82; PULSE 90; RESP 18; TEMP 97.6; O2SAT 93
[2017-01-03] MEDS: DOCUSATE SODIUM 50 MG/SENNA 8.6 MG TAB PO SCH (21:27)
[2017-01-03] MEDS: SODIUM CHLORIDE 0.9% FLUSH 10 ML FLUSH IV FLUSH SCH (21:27)
[2017-01-03] MEDS: PRAVASTATIN SOD 20 MG TAB PO SCH (22:05)
[2017-01-03] MEDS: METOPROLOL TARTRATE 50 MG TAB PO SCH (22:05)
[2017-01-03] MEDS: ACETAMINOPHEN 325 MG TAB PO PRN (22:06)
--- NOTE | 2017-01-03 22:52 | HHI.HP ---
[facility] Non-Staff Admission Diagnosis L Lung Effusion; Dyspnea Diagnoses: Chief Complaint: SOB Travel History International Travel<30 Days: No Contact w/Intl Traveler <30 Da: No Traveled to Known Affected Are: No History of Present Illness 76-year-old male with history of hypertension, CAD, hyperlipidemia, BPH, asthma/ possible COPD, BPH and head trauma after a fall 2017. Patient report about 6 weeks ago he had fluid drained from his lungs [place] in [place]. Patient also recently admitted 12/20/2016 secondary to left pleural effusion for which intervention radiology was consulted and he underwent left ultrasound- guided thoracentesis with removal 2.4 L fluid out which was sent for cytology- negative for malignancy. Patient returned to ER today due to shortness of breath and nonproductive cough. CXR reveals persistent moderate to large left pleural effusion. Pulse oximetry on arrival 84% on room air which improved to 93 - 96 % on 2 L oxygen via nasal cannula. Patient denies fevers, chills, nausea, vomiting, diarrhea, constipation, black tarry stools, BRBPR, recent travel or chest pain. Review of Systems Except as stated in HPI: all other systems reviewed are Neg Past Family Social History Past Medical History Hypertension CAD asthma/possible COPD Hyperlipidemia Colon polyps BPH Head Trauma after syncope/fall, reports "mild head bleed" in Past Surgical History Cardiac catheterization many years ago Tonsillectomy Colonoscopy Reported Medications Aspirin EC (Aspirin) 81 Mg Tabdr 81 Mg PO DAILY Centrum Silver (Multiple Vitamins W/ Minerals) 1 Chw Chw 1 Tab PO DAILY Megared Green-3 Krill Oil (Krill Oil) 500 Mg Cap 1 Cap PO DAILY Combivent Respimat Inh (Ipratropium-Albuterol Inh) 20-100 Shelter/Act Aero 1 Puff INH QID Norvasc (Amlodipine Besylate) 10 Mg Tab 10 Mg PO DAILY Metoprolol Tartrate 50 Mg Tab 50 Mg PO HS Metoprolol Tartrate 100 Mg Tab 100 Mg PO AC BREAKFAST Lovastatin 20 Mg Tab 20 Mg PO DAILY Allergies: Coded Allergies: No Known Allergies (Unverified , 01/03/17) Active Ordered Medications Current Medications Medications (Trade) Dose Ordered Sig/Jung Route Start Time Stop Time Status Last Admin (NS Flush) 2 ml UNSCH PRN IV FLUSH 01/03/17 18:45 (NS Flush) 2 ml BID IV FLUSH 01/03/17 21:00 01/03/17 21:27 (Tylenol) 650 mg Q4H PRN PO 01/03/17 18:45 01/03/17 22:06 (Zofran Inj) 4 mg Q6H PRN IVP 01/03/17 18:45 (Narcan Inj) 0.4 mg UNSCH PRN IV 01/03/17 18:45 (Gianna-Colace) 1 tab BID PO 01/03/17 21:00 01/03/17 21:27 (Milk Of Magnesia Liq) 30 ml Q12H PRN PO 01/03/17 18:45 (Senokot) 17.2 mg Q12H PRN PO 01/03/17 18:45 (Dulcolax Supp) 10 mg DAILY PRN RECTAL 01/03/17 18:45 (Lactulose Liq) 30 ml DAILY PRN PO 01/03/17 18:45 (Pravachol) 20 mg HS PO 01/03/17 22:00 01/03/17 22:05 (Lopressor) 50 mg HS PO 01/03/17 22:00 01/03/17 22:05 (Norvasc) 10 mg DAILY PO 01/04/17 09:00 Patient Own Medication 1 ea QID INH 01/04/17 09:00 Future Hold Family History Mother with CAD, CABG in her 80s Father with dementia and emphysema Social History Quit smoking 30 years ago, prior to that smoked 1 PPD for approximally 30 years Occasional alcohol use with 1-2 beers maybe once a month Denies any illicit drug use Physical Exam Vital Signs Vital Signs Date Time Temp Pulse Resp B/P Pulse Ox O2 Delivery O2 Flow Rate FiO2 01/03/17 21:03 97.6 90 18 159/82 93 01/03/17 20:23 93 Nasal Cannula 2.00 01/03/17 19:34 87 20 154/72 95 Nasal Cannula 2 01/03/17 18:11 80 18 157/86 96 6/19/17 16:42 Nasal Cannula 01/03/17 16:42 95 Nasal Cannula 2 01/03/17 16:15 84 Room Air 01/03/17 14:52 97.7 89 18 129/67 89 Physical Exam GENERAL: This is a well-nourished, well-developed patient, in no apparent distress. SKIN: No rashes, ecchymoses or lesions. Cool and dry. HEAD: Atraumatic. Normocephalic. No temporal or scalp tenderness. EYES: Pupils equal round and reactive. Extraocular motions intact. No scleral icterus. No injection or drainage. ENT: Nose without bleeding, purulent drainage or septal hematoma. Throat without erythema, tonsillar hypertrophy or exudate. Uvula midline. Airway patent. NECK: Trachea midline. No JVD or lymphadenopathy. Supple, nontender, no meningeal signs. CARDIOVASCULAR: Regular rate and rhythm without murmurs, gallops, or rubs. RESPIRATORY: Clear to auscultation. Breath sounds equal bilaterally. No wheezes , rales, or rhonchi. GASTROINTESTINAL: Abdomen soft, non-tender, nondistended. No hepato-splenomegaly , or palpable masses. No guarding. MUSCULOSKELETAL: Extremities without clubbing, cyanosis, or edema. No joint tenderness, effusion, or edema noted. No calf tenderness. Negative Homans sign bilaterally. NEUROLOGICAL: Awake and alert. Cranial nerves II through XII intact. Motor and sensory grossly within normal limits. Five out of 5 muscle strength in all muscle groups. Normal speech. Laboratory Laboratory Tests Test 01/03/17 16:40 White Blood Count 7.6 Red Blood Count 5.26 Hemoglobin 16.3 Hematocrit 48.2 Mean Corpuscular Volume 91.5 Mean Corpuscular Hemoglobin 30.9 Mean Corpuscular Hemoglobin 33.8 Concent Red Cell Distribution Width 13.8 Platelet Count 311 Mean Platelet Volume 7.9 Neutrophils (%) (Auto) 66.7 Lymphocytes (%) (Auto) 16.2 Monocytes (%) (Auto) 15.6 Eosinophils (%) (Auto) 0.7 Basophils (%) (Auto) 0.8 Neutrophils # (Auto) 5.0 Lymphocytes # (Auto) 1.2 Monocytes # (Auto) 1.2 Eosinophils # (Auto) 0.1 Basophils # (Auto) 0.1 CBC Comment DIFF FINAL Differential Comment Prothrombin Time 11.2 Prothromb Time International 1.0 Ratio Activated Partial 30.7 Thromboplast Time Sodium Level 136 Potassium Level 3.0 Chloride Level 99 Carbon Dioxide Level 25.7 Anion Gap 11 Blood Urea Nitrogen 16 Creatinine 1.64 Estimat Glomerular Filtration 41 Rate Random Glucose 96 Calcium Level 9.1 Magnesium Level 2.1 Result Diagram: 01/03/17 1640 01/03/17 1640 Assessment and Plan Problem List: (1) Pleural effusion ICD Code: J90 Status: Acute (2) Hypoxia ICD Code: R09.02 Status: Acute (3) Hypokalemia ICD Code: E87.6 Status: Acute Assessment and Plan 76 year old male patient with hypoxia and recurrent/persistent pleural effusion Hypoxia Persistent moderate to large left pleural effusion CXR reviewed by myself and Dr. Cuevas reveals persistent moderate to large left pleural effusion Oxygen via NC titrate to maintain saturation above 92% Consult pulmonology patient known to Dr. Motley Consult cardiothoracic surgery Dr. Crouch Hypokalemia replaced recheck in AM Other chronic stable medical conditions include hypertension, hyperlipidemia and asthma/possible COPD continue home medications as indicated DVT prophylaxis SCDs This is a shared visited. Patient evaluated by myself and Dr. Cuevas Physician Certification 2 Midnight Certification Type: Admission for Inpatient Services Order for Inpatient Services The services are ordered in accordance with Medicare regulations or non- Medicare payer requirements, as applicable. In the case of services not specified as inpatient-only, they are appropriately provided as inpatient services in accordance with the 2-midnight benchmark. Estimated LOS (days): 3 days is the estimated time the patient will need to remain in the hospital, assuming treatment plan goals are met and no additional complications. Post-Hospital Plan: Home Yeesnia Whalen Jan 03, 2017 22:52
[2017-01-04] VITALS (10 sets, daily range): BP systolic 135–161; BP diastolic 71–85; PULSE 70–98; RESP 18–20; TEMP 97.9–98.5; O2SAT 90–94
[2017-01-04] MEDS ORDERED: METOPROLOL TARTRATE 100 MG TAB PO SCH (07:00)
[2017-01-04 08:00] LABS: AUTOMATED NEUTROPHIL # 4.5 TH/MM3 (1.8-7.7); BASOPHIL % 0.5 % (0.0-2.0); EOSINOPHIL # 0.2 TH/MM3 (0-0.4); EOSINOPHIL % 2.8 % (0.0-4.0); HEMO FLAGS DIFF FINAL; LYMPH % 16.7 % (9.0-44.0); LYMPHOCYTE # 1.1 TH/MM3 (1.0-4.8); MEAN CELL VOLUME 90.3 FL (80.0-100.0); MEAN CORPUSCULAR HEMOGLOBIN 30.9 PG (27.0-34.0); MEAN CORPUSCULAR HGB CONC 34.2 % (32.0-36.0); MONO % 13.1 % (0.0-8.0); NEUT % 66.9 % (16.0-70.0); PLATELET COUNT 307 TH/MM3 (150-450); RED CELL DISTRIBUTION WIDTH 13.8 % (11.6-17.2); WHITE BLOOD COUNT 6.7 TH/MM3 (4.0-11.0)
[2017-01-04 08:20] LABS: BICARBONATE 28.2 MEQ/L (21.0-32.0)
[2017-01-04 08:24] LABS: POTASSIUM 2.9 MEQ/L (3.5-5.1)
[2017-01-04] MEDS ORDERED: IPRATROPIUM INH SCH (09:00)
[2017-01-04] MEDS: DOCUSATE SODIUM 50 MG/SENNA 8.6 MG TAB PO SCH ×2 (09:00→20:53)
[2017-01-04] MEDS: SODIUM CHLORIDE 0.9% FLUSH 10 ML FLUSH IV FLUSH SCH ×2 (09:00→20:53)
[2017-01-04] MEDS ORDERED: ALBUTEROL INH SCH (09:00)
[2017-01-04] MEDS: METOPROLOL TARTRATE 100 MG TAB PO SCH (10:03)
[2017-01-04] MEDS: ACETAMINOPHEN 325 MG TAB PO PRN (10:04)
[2017-01-04] MEDS ORDERED: POTASSIUM CHLORIDE 25 MEQ EFFERVESCENT TAB PO ONE (11:00)
--- NOTE | 2017-01-04 15:08 | HHI.PR ---
Subjective Remarks Follow up for dyspnea, left sided pleural effusion. Patient is currently doing well on supplemental oxygen via nasal cannula. Denies any chest pain, fever or chills. Cardiac thoracic surgery has evaluated patient. Objective Vitals Vital Signs Date Time Temp Pulse Resp B/P Pulse Ox O2 Delivery O2 Flow Rate FiO2 01/04/17 14:15 87 01/04/17 12:54 18 01/04/17 12:07 98.0 70 18 139/77 93 01/04/17 09:38 93 Nasal Cannula 2.00 01/04/17 08:38 98.0 82 18 161/85 92 01/04/17 04:00 97.9 77 20 154/82 92 01/04/17 00:00 98.5 75 18 148/77 90 01/03/17 21:03 97.6 90 18 159/82 93 01/03/17 20:23 93 Nasal Cannula 2.00 01/03/17 19:34 87 20 154/72 95 Nasal Cannula 2 01/03/17 18:11 80 18 157/86 96 01/03/17 16:42 Nasal Cannula 01/03/17 16:42 95 Nasal Cannula 2 01/03/17 16:15 84 Room Air I/O 01/03/17 01/03/17 01/03/17 01/04/17 01/04/17 01/04/17 07:00 15:00 23:00 07:00 15:00 23:00 Intake Total 120 ml 0 ml Output Total 325 ml Balance 120 ml -325 ml Intake Oral 120 ml 0 ml Output Urine Total 325 ml # Voids 1 # Bowel Movements 0 0 Result Diagram: 01/04/1730 01/04/17629 Imaging Chest x-ray 01/03/2017 Persistent moderate to large left pleural effusion Objective Remarks GENERAL: Alert, oriented 3, NAD. SKIN: Warm and dry. HEAD: Normocephalic. EYES: No scleral icterus. No injection or drainage. NECK: Supple, trachea midline. No JVD or lymphadenopathy. CARDIOVASCULAR: Regular rate and rhythm without murmurs, gallops, or rubs. RESPIRATORY: Moderate air entry. No wheezing. Diminished breath sounds on the lower part of the left posterior lung field. GASTROINTESTINAL: Abdomen soft, non-tender, nondistended. MUSCULOSKELETAL: No cyanosis, or edema. BACK: Nontender without obvious deformity. No CVA tenderness. Procedures None A/P Problem List: (1) Pleural effusion ICD Code: J90 Status: Acute (2) Hypoxia ICD Code: R09.02 Status: Acute (3) Hypokalemia ICD Code: E87.6 Status: Acute Assessment and Plan Mr. Austin 76 year old male patient with hypoxia and recurrent/persistent pleural effusion. Patient underwent thoracentesis 6 weeks ago in [place] as well as an other thoracentesis about a week ago at [place]. Cytology was negative in the previous study. On arrival patient's oxygen saturation was 84% on room air which improved to 93 - 96 % on 2 L oxygen via nasal cannula. Off note patient has a history of 30 years smoking but he quit about 37 years ago. - Acute respiratory failure hypoxia - Left-sided pleural effusion - Patient has had antibiotics with no resolution. - Continue supplemental oxygen via nasal cannula. - Pulmonology and cardiothoracic surgery on board - CT thorax/chest without IV contrast is pending. - Hypokalemia - potassium 2.9 this morning. - Potassium was replaced this morning. We'll check potassium level at 4 PM. - Magnesium was 2.1. If needed we'll replace with IV potassium chloride. - Hypertension - Hyperlipidemia - Continue amlodipine 10 mg daily, continue statin. - Continue patient's home medication metoprolol tartrate 100 mg every morning and 50 mg daily at bedtime. Full code. SCDs. Mickey Frey DO Jan 04, 2017 3:08 pm
[2017-01-04] MEDS: POTASSIUM CHLORIDE 10 MEQ CONTROLLED RELEASE TAB PO SCH ×2 (15:28→16:58)
--- NOTE | 2017-01-04 16:48 | EKG ---
Date Performed: 01/03/2017 Time Performed: 17:45:53 PTAGE: 76 years EKG: Sinus rhythm NONSPECIFIC ST & T-WAVE ABNORMALITY Since previous tracing, no significant change noted BORDERLINE E CG PREVIOUS TRACING : 12/20/2016 14.53 DOCTOR: Jessica Amaya Interpretating Date/Time 01/04/2017 17:24:06
[2017-01-04] MEDS ORDERED: ceFAZolin 2 GM PREMIX 50 ML IV SCH (17:15)
[2017-01-04] MEDS ORDERED: CHLORHEXIDINE GLUCONATE 4% SOLN 120 ML BTL TOPICAL SCH (17:15)
[2017-01-04] MEDS ORDERED: CEFAZOLIN INJ 500 MG in SODIUM CHLORIDE 0.9% IRR BTL 500 ML IRRIGATION SCH (17:15)
[2017-01-04] MEDS ORDERED: SODIUM CHLORIDE 0.9% FLUSH 10 ML FLUSH IV FLUSH PRN (17:15)
--- NOTE | 2017-01-04 19:28 | MB ---
cc: VINCENT WEI DATE OF CONSULTATION: 01/04/2017 HISTORY OF PRESENT ILLNESS: The patient is a 76-year-old male that was recently in the hospital the 16 of December that underwent ultrasound-guided thoracentesis on the left that drained 2400 cc of clear red fluid, negative for malignancy. The pleural LDH was 381. They did not do a serum LDH. There was no growth in the cultures. Prior to that he had returned from [place] where he was hospitalized for five days with a large left pleural effusion. He told Dr. Motley that he drained about two liters of fluid, told him that the culture and cytology were negative and was told to follow up with his primary care physicians in [facility]. He returned to the emergency department on 01/03 for shortness of breath, nonproductive cough. Chest x-ray revealed persistent moderate to large left pleural effusion, O2 sat was 84 on room air which improved on O2 at two liters. He did not have any fever, chills, nausea and vomiting, no diarrhea, constipation. 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 He has also had unexplained 15 to 20 pound weight loss over the past six months. PAST MEDICAL HISTORY: Includes: 1. Recurrent pulmonary fusion. 2. Hypertension. 3. Mild intracerebral bleed in August, was in [place] after a fall. 4. Heart cath with mild coronary artery disease years ago. 5. Colon polyps. 6. Benign prostatic hypertrophy. PAST SURGICAL HISTORY: 1. Thoracentesis. 2. Colonoscopy. 3. Previous tonsillectomy. ALLERGIES: None known. HOME MEDICATIONS: 1. Aspirin. 2. Norvasc. 3. Metoprolol. 4. Lovenox. REVIEW OF SYSTEMS: Other than what is noted in the HPI, no fevers, not feeling ill. No GI symptoms. PHYSICAL EXAMINATION: VITAL SIGNS: Blood pressure 135/70, heart rate 98, temperature 97.9. The patient is awake, alert, in no acute distress. HEAD: Normocephalic, atraumatic. Pupils equal and reactive. Oral mucosa pink, moist. NECK: Supple. No JVD. HEART: Heart sounds S1-S2, regular rate and rhythm. No rubs, murmurs, gallops. LUNGS: Diminished on the left, otherwise the right is clear to auscultation. ABDOMEN: Soft, nontender. No masses or organomegaly. EXTREMITIES: No clubbing, cyanosis or edema. LABORATORY WORK: Shows hemoglobin 16, hematocrit 47, white cell count is 6.7, platelet count of 307. Sodium 142, potassium 2.9 which has been corrected. Repeat is pending. BUN of 14, creatinine 1.17. INR 1.0. Chest CT is pending. Chest x-ray showed persistent moderate large pleural effusion. EKG: Normal sinus rhythm with some nonspecific ST wave abnormality. IMPRESSION: This is a 76-year-old patient with recurrent pleural effusions, prior thoracentesis x2 negative for malignant cells, negative cultures grown, however, he has had history of some asbestosis exposure and prior smoker. PLAN: The plan will be for left video-assisted thoracoscopy, drainage of left pleural effusion and talc pleurodesis on Tuesday. Dictated by: ABENA Jameson MD SHASHI Botello/OMAR /5:23 PM /8:40 AM
--- NOTE | 2017-01-04 20:26 | MB ---
cc: Jose BREEN M.D. DATE OF CONSULTATION 01/04/2017 HISTORY OF THE PRESENT ILLNESS Mr. Austin is a 76-year-old white male whom I met earlier this month with a large left pleural effusion. It was drained and nondiagnostic and I saw him back as an outpatient at which time he was stable on 12/27. Unfortunately the fluid began to reaccumulate. He became more short of breath and had to be admitted again yesterday. We have scheduled him for an outpatient appointment with thoracic surgery for consideration of thoracoscopy at this is his third admission now without a definitive diagnosis. At the time of this exam he is awake, alert, comfortable, less short of breath wearing oxygen and having no chest pain. 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 He is also a prior smoker of two packs per day for about 20-30 years although he did quit smoking 30 years ago. He has had an unexplained weight loss of 15-20 pounds over the last 6-[address] Crouch saw him here in the hospital and has him scheduled for a thoracoscopy later this week. ALLERGIES None. MEDICATIONS 1. Metoprolol. 2. Amlodipine. 3. Baby aspirin. 4. Lovastatin. For review of his additional history, please see the consultation from 12/21/2016. PHYSICAL EXAMINATION GENERAL: He is awake, alert, comfortable. VITAL SIGNS: Afebrile, pulse is 80, respirations are 16-18 and nonlabored. LYMPHATICS: No adenopathy in the neck or supraclavicular region. LUNGS: Left chest is diminished but there are no wheezes, no congestion or rales. CARDIOVASCULAR: Regular rhythm. No harsh murmur. EXTREMITIES: No edema or cyanosis. Mr. Vann has a recurrent left pleural effusion of unclear etiology. In light of the smoking history and the prior asbestos exposure, malignancy is a concern. He is scheduled for a thoracoscopy for further evaluation. Further diagnostic and/or therapeutic intervention will depend on the results of this study. MD JEAN Dhaliwal/AIDAN /6:04 PM /7:50 PM
[2017-01-04 20:50] LABS: BLOOD, URINE NEG (NEG); COMMENT (UR) CULT NOT INDICATED; CULTURE IF INDICATED CULT NOT INDICATED; GLUCOSE,URINE NEG (NEG); KETONE, URINE NEG (NEG); MUCUS URINE FEW /lpf (OCC); NITRITE,URINE NEG (NEG); PH, URINE 6.5 (5.0-8.5); URINE COLOR YELLOW (YELLW/STRAW)
[2017-01-04] MEDS: PRAVASTATIN SOD 20 MG TAB PO SCH (20:53)
[2017-01-04] MEDS: METOPROLOL TARTRATE 50 MG TAB PO SCH (20:53)
[2017-01-04] MEDS ORDERED: SODIUM CHLORIDE 0.9% FLUSH 10 ML FLUSH IV FLUSH SCH (21:00)
[2017-01-05] VITALS (8 sets, daily range): BP systolic 136–155; BP diastolic 72–83; PULSE 73–85; RESP 16–20; TEMP 97.2–98.4; O2SAT 92–95
[2017-01-05] MEDS: ACETAMINOPHEN 325 MG TAB PO PRN (02:24)
--- NOTE | 2017-01-05 08:52 | RADRPT ---
EXAM DATE/TIME: 01/04/2017 14:53 Caution: Report not yet finalized and possibly incomplete! [facility] COMPARISON: CT THORAX W CONTRAST, December 21, 2016, 14:17. INDICATIONS : <<Evaluate for pleural effusionpatient had a thoracentesis three weeks ago.>> RADIATION DOSE: <<5.28>> CTDIvol (mGy) MEDICAL HISTORY : Cardiovascular disease. Hypertension. SURGICAL HISTORY : Thorocentisis ENCOUNTER: Initial ACUITY: 3 days PAIN SCALE: 4/10 LOCATION: chest TECHNIQUE: Volumetric scanning of the chest was performed. Using automated exposure control and adjustment of t he mA and/or kV according to patient size, radiation dose was kept as low as reasonably achievable to obtain optimal diagnostic quality images. FINDINGS: There is a mild to moderate amount of pleural fluid seen on the left side. It does appear to be loculated in several areas. It does not dependently all pool at posteriorly. There are some areas of pleural thickening seen at the inferior lateral aspect of the left chest. These were present previously. T he amount of pleural fluid has increased since the prior exam performed on 12/21/2016. There is chronic emphysematous change seen in the upper lungs bilaterally. There is some increased parenchymal density seen at the left lung adjacent to the areas of pleural effusion likely related a telectasis. There continues to be bilateral hilar and mediastinal adenopathy. This is better characterized on the pos t contrast study of 12/21/2016. It does not appear significantly changed. There is also adenopathy seen in the post erior mediastinum adjacent to the mid to distal esophagus. This is unchanged. Coronary artery calcificati ons are present. Again noted are two hypodensities seen in the left lobe of the liver. These are nonspecif ic. The bony structure is grossly intact. CONCLUSION: 1. Progression of loculated areas of pleural effusion on the left. There do appear to be pleural mas ses seen at the lateral left lower chest. 2. Persistent mediastinal and hilar adenopathy. 3. Chronic emphysematous disease. Jairo Crowley MD on January 04, 2017 at 15:34
[2017-01-05] MEDS: DOCUSATE SODIUM 50 MG/SENNA 8.6 MG TAB PO SCH ×2 (08:53→21:04)
[2017-01-05] MEDS: METOPROLOL TARTRATE 100 MG TAB PO SCH (08:53)
[2017-01-05] MEDS: SODIUM CHLORIDE 0.9% FLUSH 10 ML FLUSH IV FLUSH SCH ×2 (08:53→21:05)
--- NOTE | 2017-01-05 14:28 | HHI.PR ---
Subjective Remarks Follow up for dyspnea, left sided pleural effusion. Patient is currently doing well. Denies any cough, fever or chills. He is currently oxygenating well on nasal cannula. Thoracoscopy is planned for 01/07/2017. Objective Vitals Vital Signs Date Time Temp Pulse Resp B/P Pulse Ox O2 Delivery O2 Flow Rate FiO2 01/05/17 12:00 97.2 82 20 136/72 92 01/05/17 10:48 93 Nasal Cannula 2.00 01/05/17 08:00 97.9 85 20 155/83 93 01/05/17 04:29 98.0 82 16 147/81 95 01/05/17 03:24 18 01/05/17 00:45 98.2 73 16 155/79 95 01/04/17 20:00 98.5 81 18 144/82 93 01/04/17 17:30 94 Nasal Cannula 2.00 01/04/17 16:38 97.9 98 18 135/71 94 01/04/17 15:29 87 I/O 01/04/17 01/04/17 01/04/17 01/05/17 01/05/17 01/05/17 06:59 14:59 22:59 06:59 14:59 22:59 Intake Total 0 ml 360 ml 500 ml 500 ml Output Total 325 ml 600 ml 600 ml Balance -325 ml -240 ml 500 ml -100 ml Intake Oral 0 ml 360 ml 500 ml 500 ml IV Total 0 ml Output Urine Total 325 ml 600 ml 600 ml # Voids 3 # Bowel Movements 0 1 0 0 Result Diagram: 01/04/17 0630 01/04/17 1637 Imaging Last Impressions Chest X-Ray 01/03/17 1628 Signed Impressions: Service Date/Time: Tuesday, January 03, 2017 16:31 - CONCLUSION: Persistent moderate to large left pleural effusion. Jairo Crowley MD Objective Remarks GENERAL: Alert, oriented 3, NAD. SKIN: Warm and dry. HEAD: Normocephalic. EYES: No scleral icterus. No injection or drainage. NECK: Supple, trachea midline. No JVD or lymphadenopathy. CARDIOVASCULAR: Regular rate and rhythm without murmurs, gallops, or rubs. RESPIRATORY: Moderate air entry. No wheezing. Diminished breath sounds on the lower part of the left posterior lung field. GASTROINTESTINAL: Abdomen soft, non-tender, nondistended. MUSCULOSKELETAL: No cyanosis, or edema. BACK: Nontender without obvious deformity. No CVA tenderness. Procedures None A/P Problem List: (1) Pleural effusion ICD Code: J90 Status: Acute (2) Hypoxia ICD Code: R09.02 Status: Acute (3) Hypokalemia ICD Code: E87.6 Status: Acute Assessment and Plan Mr. Austin 76 year old male patient with hypoxia and recurrent/persistent pleural effusion. Patient underwent thoracentesis 6 weeks ago in [place] as well as an other thoracentesis about a week ago at [place]. Cytology was negative in the previous study. On arrival patient's oxygen saturation was 84% on room air which improved to 93 - 96 % on 2 L oxygen via nasal cannula. Off note patient has a history of 30 years smoking but he quit about 37 years ago. - Acute respiratory failure hypoxia - Left-sided pleural effusion - Patient has had antibiotics with no resolution. - Continue supplemental oxygen via nasal cannula. - Pulmonology and cardiothoracic surgery on board - CT thorax/chest without IV contrast reviewed by me - shows loculated pleural effusions with pleural masses. - Cardiothoracic surgery plans to perform video-assisted thoracoscopy on 01/07/2017. - Hypokalemia - potassium 2.9 this morning. - Potassium was replaced this morning. K+ improved to 3.3. Will get CBC, BMP in the AM. - Magnesium was 2.1. If needed we'll replace with IV potassium chloride. - Acute kidney injury - Creatinine improved 1.64 to 1.17. - Hypertension - Hyperlipidemia - Continue amlodipine 10 mg daily, continue statin. - Continue patient's home medication metoprolol tartrate 100 mg every morning and 50 mg daily at bedtime. Full code. SCDs. Mickey Frey DO Jan 05, 2017 2:28 pm
[2017-01-05] MEDS: METOPROLOL TARTRATE 50 MG TAB PO SCH (21:00)
[2017-01-05] MEDS: PRAVASTATIN SOD 20 MG TAB PO SCH (21:05)
[2017-01-06] VITALS (8 sets, daily range): BP systolic 128–163; BP diastolic 61–85; PULSE 73–86; RESP 14–20; TEMP 97.3–98.4; O2SAT 92–95
[2017-01-06 08:46] LABS: AUTOMATED NEUTROPHIL # 4.1 TH/MM3 (1.8-7.7); BASOPHIL % 0.4 % (0.0-2.0); EOSINOPHIL # 0.1 TH/MM3 (0-0.4); EOSINOPHIL % 2.1 % (0.0-4.0); HEMATOCRIT 45.6 % (39.0-51.0); HEMO FLAGS DIFF FINAL; LYMPH % 16.1 % (9.0-44.0); MEAN CELL VOLUME 89.3 FL (80.0-100.0); MEAN CORPUSCULAR HEMOGLOBIN 31.4 PG (27.0-34.0); MEAN CORPUSCULAR HGB CONC 35.1 % (32.0-36.0); MONO % 14.2 % (0.0-8.0); NEUT % 67.2 % (16.0-70.0); PLATELET COUNT 301 TH/MM3 (150-450); RED BLOOD COUNT 5.11 MIL/MM3 (4.50-5.90); RED CELL DISTRIBUTION WIDTH 13.7 % (11.6-17.2); WHITE BLOOD COUNT 6.1 TH/MM3 (4.0-11.0)
[2017-01-06] MEDS: SODIUM CHLORIDE 0.9% FLUSH 10 ML FLUSH IV FLUSH SCH ×2 (08:47→20:21)
[2017-01-06] MEDS: METOPROLOL TARTRATE 100 MG TAB PO SCH (08:47)
[2017-01-06] MEDS: DOCUSATE SODIUM 50 MG/SENNA 8.6 MG TAB PO SCH ×2 (08:47→20:18)
[2017-01-06 13:15] LABS: BICARBONATE 24.4 MEQ/L (21.0-32.0); POTASSIUM 3.2 MEQ/L (3.5-5.1)
--- NOTE | 2017-01-06 14:28 | HHI.PR ---
Subjective Remarks Follow up for dyspnea, left sided pleural effusion. Mr. Austin is doing well. No acute concerns. He denies any chest pain, SOB, fever, chills. Waiting for thoracoscopy tomorrow. Objective Vitals Vital Signs Date Time Temp Pulse Resp B/P Pulse Ox O2 Delivery O2 Flow Rate FiO2 01/06/17 12:02 97.7 77 18 143/79 92 01/06/17 08:52 92 Nasal Cannula 2.00 01/06/17 08:03 98.2 82 18 137/74 94 01/06/17 04:00 98.4 78 20 130/72 95 01/06/17 00:00 98.3 79 20 128/66 93 01/05/17 21:04 98.4 84 18 152/80 92 01/05/17 17:50 92 Nasal Cannula 2.00 01/05/17 16:00 98.3 77 20 146/77 92 I/O 01/05/17 01/05/17 01/05/17 01/06/17 01/06/17 01/06/17 07:00 15:00 23:00 07:00 15:00 23:00 Intake Total 500 ml 120 ml 480 ml 120 ml Output Total 600 ml 500 ml Balance -100 ml 120 ml -20 ml 120 ml Intake Oral 500 ml 120 ml 480 ml 120 ml Output Urine Total 600 ml 500 ml # Voids 2 2 # Bowel Movements 0 1 1 0 Result Diagram: 01/06/17 0740 01/06/17 1218 Imaging Last Impressions Chest X-Ray 01/03/17 1628 Signed Impressions: Service Date/Time: Tuesday, January 03, 2017 16:31 - CONCLUSION: Persistent moderate to large left pleural effusion. Jairo Crowley MD Objective Remarks GENERAL: Alert, oriented 3, NAD. SKIN: Warm and dry. HEAD: Normocephalic. EYES: No scleral icterus. No injection or drainage. NECK: Supple, trachea midline. No JVD or lymphadenopathy. CARDIOVASCULAR: Regular rate and rhythm without murmurs, gallops, or rubs. RESPIRATORY: Moderate air entry. No wheezing. Diminished breath sounds on the lower part of the left posterior lung field. GASTROINTESTINAL: Abdomen soft, non-tender, nondistended. MUSCULOSKELETAL: No cyanosis, or edema. BACK: Nontender without obvious deformity. No CVA tenderness. Procedures None A/P Problem List: (1) Pleural effusion ICD Code: J90 Status: Acute (2) Hypoxia ICD Code: R09.02 Status: Acute (3) Hypokalemia ICD Code: E87.6 Status: Acute Assessment and Plan Mr. Austin 76 year old male patient with hypoxia and recurrent/persistent pleural effusion. Patient underwent thoracentesis 6 weeks ago in [place] as well as an other thoracentesis about a week ago at [place]. Cytology was negative in the previous study. On arrival patient's oxygen saturation was 84% on room air which improved to 93 - 96 % on 2 L oxygen via nasal cannula. Off note patient has a history of 30 years smoking but he quit about 37 years ago. - Acute respiratory failure hypoxia - Left-sided pleural effusion - Patient has had antibiotics with no resolution. - Continue supplemental oxygen via nasal cannula. - Pulmonology and cardiothoracic surgery on board - CT thorax/chest without IV contrast reviewed by sc - shows loculated pleural effusions with pleural masses. - Cardiothoracic surgery plans to perform video-assisted thoracoscopy on 01/07/2017. - Hypokalemia - potassium 2.9 this morning. - Potassium was replaced this morning. K+ 3.3 --> 3.2. - Magnesium was 2.1. - Will start KCL 20meq Q8hrs X 3 days. - Acute kidney injury - Creatinine improved 1.64 to 1.17 --> 1.09. - Hypertension - Hyperlipidemia - Continue amlodipine 10 mg daily, continue statin. - Continue patient's home medication metoprolol tartrate 100 mg every morning and 50 mg daily at bedtime. Full code. SCDs. Mickey Frey DO Jan 06, 2017 2:28 pm
[2017-01-06] MEDS: POTASSIUM CHLORIDE 20 MEQ CONTROLLED RELEASE TAB PO SCH ×2 (19:52→20:19)
[2017-01-06] MEDS: PRAVASTATIN SOD 20 MG TAB PO SCH (20:18)
[2017-01-06] MEDS: METOPROLOL TARTRATE 50 MG TAB PO SCH (20:18)
[2017-01-07] VITALS (13 sets, daily range): BP systolic 121–155; BP diastolic 66–80; PULSE 64–94; RESP 14–20; TEMP 97.3–98; O2SAT 91–94
[2017-01-07] MEDS ORDERED: INSULIN HUMAN REGULAR 1,000 UNITS/10 ML VIAL SQ PRN (05:15)
[2017-01-07] MEDS ORDERED: SODIUM CHLORID 0.9% 500 ML IV PRN (05:15)
[2017-01-07] MEDS ORDERED: CHLORHEXIDINE GLUCONATE 2 % 1 PACK (2 CLOTHS) TOPICAL PRN (05:15)
[2017-01-07] MEDS ORDERED: LACTATED RINGER'S 1000 ML IV PRN (05:15)
[2017-01-07] MEDS ORDERED: POVIDONE IODINE 5% (ANTISEPSIS KIT) 4 APPLICATIONS EACH NARE PRN (05:15)
[2017-01-07] MEDS: POTASSIUM CHLORIDE 20 MEQ CONTROLLED RELEASE TAB PO SCH ×3 (05:45→22:04)
[2017-01-07] MEDS: DOCUSATE SODIUM 50 MG/SENNA 8.6 MG TAB PO SCH ×2 (08:48→22:04)
[2017-01-07] MEDS: METOPROLOL TARTRATE 100 MG TAB PO SCH (08:48)
[2017-01-07] MEDS: SODIUM CHLORIDE 0.9% FLUSH 10 ML FLUSH IV FLUSH SCH (08:48)
[2017-01-07] MEDS ORDERED: BUPIVACAINE HCL PF 0.5% 30 ML VIAL ONE (10:37)
[2017-01-07] MEDS ORDERED: ceFAZolin 2 GM PREMIX 50 ML ONE (10:37)
[2017-01-07] MEDS ORDERED: PROPOFOL 200 MG/20 ML AMP IV ONE (12:00)
[2017-01-07] MEDS ORDERED: PHENYLEPH/NS 1000 MCG/10 ML SYR IV ONE (12:00)
[2017-01-07] MEDS ORDERED: NORMOSOL R INJ 1,000 ML IV ONE (12:00)
[2017-01-07] MEDS ORDERED: ePHEDrine/NS 25 MG/5 ML SYR IV ONE (12:00)
[2017-01-07] MEDS ORDERED: STERILE TALC 4 GM AEROSOL CAN I-PLEURAL ONE (12:21)
--- NOTE | 2017-01-07 12:42 | PD.OP ---
cc: Yola Crouch MD; Jose Motley MD Operative Report Date of Surgery: Jan 07, 2017 Preoperative Diagnosis: (1) Pleural effusion (2) Hypoxia Postoperative Diagnosis: same Procedure: Left thoracoscopic exploration for drainage loculated pleural effusion, lysis of adhesions, pleural biopsies, talc pleuradesis Anesthesia: Dr. Capone Surgeon: Yola Crouch Vacuum Pan Tender(s): James Owens Operation and Findings: After adequate general anesthesia the patient was placed in the right lateral decubitus position and the left chest was prepped and draped in usual manner. A small posterior port incision was performed and electrocautery was used to obtain hemostasis and carry the dissection down through the fascia. A 22G seeker needle was used initially posteriorly and serosanguious fluid was aspirated. A port was initially placed posteriorly followed by the camera. Visualization was somewhat difficult. Overall, ~1100 ml of serosanguinous effusion was drained. A second anterior port was positioned at ~6th intercostal space. Blunt dissection was used to mobilize the lower lobe and drain as much of the effusion as possible. Exploration of the left hemithorax was significant for diffuse pleural thickening with nodules. Pleural biopsies were sent to Pathology. Fluid was submitted for cytology, lab studies, and cultures. A talc pleuradesis was performed through both ports. Two 32F right angle chest tube were positioned and secured with a 0-silk suture. The lung was ventilated and no significant air leaks were found. The subcutaneous tissues of the posterior port was approximated running 2-0 Vicryl suture and the skin was approximated using running 4-0 Monocryl subcuticular stitch. Marcaine was infused around each port area as well. All sponge and history counts were correct at the close the procedure and the patient was transferred to the PACU for recovery purposes. Yola Crouch MD Jan 07, 2017 12:41
[2017-01-07] MEDS ORDERED: RESP: ALBUTEROL 2.5 MG/3 ML NEB (PRN) NEB (12:45)
[2017-01-07] MEDS ORDERED: DEXTROSE 50% IN WATER 50 ML VIAL(D50) IV PRN (12:45)
[2017-01-07] MEDS ORDERED: MAGNESIUM HYDROXIDE SUSP 30 ML CUP PO PRN (12:45)
[2017-01-07] MEDS ORDERED: SODIUM CHLORIDE 0.9% FLUSH 5 ML FLUSH IV FLUSH PRN (12:45)
[2017-01-07] MEDS ORDERED: Post-op Orders (for Pharmacy) MISC OTHER ONE (12:45)
[2017-01-07] MEDS ORDERED: MISC INFORMATION OTHER ONE (12:45)
[2017-01-07] MEDS ORDERED: ONDANSETRON HCL 4 MG/2 ML VIAL IV PUSH PRN (12:45)
[2017-01-07] MEDS ORDERED: GLUCAGON 1 MG/ML VIAL IV PRN (12:45)
[2017-01-07] MEDS ORDERED: DO NOT ADM ANY ANTICOAGULANT DRUGS PRN (13:00)
[2017-01-07] MEDS ORDERED: fentaNYL CITRATE 250 MCG/5 ML AMP ONE (13:12)
[2017-01-07] MEDS ORDERED: *morphine SULFATE 8 MG/ML PERIprocedure ONLY ONE (13:53)
--- NOTE | 2017-01-07 14:15 | RADRPT ---
EXAM DATE/TIME: 01/07/2017 13:07 [facility] COMPARISON: No previous studies available for comparison. INDICATIONS : S/p thoracotomy. MEDICAL HISTORY : Cardiovascular disease. Hypertension SURGICAL HISTORY : thoracentesis ENCOUNTER: Initial ACUITY: 1 day PAIN SCORE: Non-responsive. LOCATION: Bilateral chest FINDINGS: Patient postoperative left thoracotomy. Left chest tube x2 without significant pneumothorax. Patchy b ilateral airspace disease, left greater than right. No pneumothorax. CONCLUSION: 1. No 2 left chest tubes without pneumothorax. Patchy bilateral airspace disease. Ted Gregorio MD on January 07, 2017 at 14:11 Board Certified Radiologist. This report was verified electronically.
[2017-01-07 14:36] LABS: PLEURAL FLUID LYMPHS 90 %
[2017-01-07] MEDS: RESP: ALBUTEROL 2.5 MG/3 ML NEB (SCH) NEB ×2 (15:21→21:12)
--- NOTE | 2017-01-07 17:27 | HHI.PR ---
Subjective Remarks Follow up for dyspnea, left sided pleural effusion. Patient seen and examined, post op left thorascopic exploration for drainage loculated pleural effusion, lysis of adhesions, pleural biopsies, talc pleurodesis. Patient doing well. Denies any new acute complaints. Left twin cath chest tube in place draining serosanguineous fluid. Pain well controlled. Tolerating PO intake. Afebrile. Positive BM. Denies any recent fever, chills, cough, shortness of breath, abdominal pain, nausea, vomiting, diarrhea or dysuria. Objective Vitals Vital Signs Date Time Temp Pulse Resp B/P Pulse Ox O2 Delivery O2 Flow Rate FiO2 01/07/17 17:00 73 01/07/17 16:30 64 01/07/17 16:12 94 Nasal Cannula 3.00 01/07/17 16:00 97.5 68 20 121/69 94 01/07/17 16:00 94 Nasal Cannula 3.00 01/07/17 15:30 96.5 70 15 112/59 96 Nasal Cannula 3 01/07/17 15:00 63 16 93/53 94 Nasal Cannula 3 Arterial Line 01/07/17 14:30 63 12 102/57 96 Nasal Cannula 3 108/48 01/07/17 14:15 63 12 103/57 96 Nasal Cannula 4 106/48 01/07/17 14:00 60 12 107/55 95 Nasal Cannula 4 104/66 01/07/17 13:45 61 12 101/56 97 Nasal Cannula 4 112/50 01/07/17 13:30 58 11 92/51 95 Nasal Cannula 4 101/46 01/07/17 13:23 58 13 89/52 94 89/43 01/07/17 13:15 61 17 88/55 92 Nasal Cannula 4 99/47 01/07/17 13:05 57 13 88/53 93 93/45 01/07/17 13:00 58 17 76/47 92 Nasal Cannula 4 01/07/17 12:57 97.4 60 18 92/53 95 Nasal Cannula 4 01/07/17 10:22 Nasal Cannula 2.00 01/07/17 08:00 97.9 80 18 155/80 94 01/07/17 04:00 98.0 75 16 127/66 94 01/06/17 23:48 97.7 73 16 141/61 93 01/06/17 22:12 Nasal Cannula 2.00 01/06/17 20:00 98.3 82 20 163/85 93 01/06/17 19:27 Nasal Cannula 2.00 I/O 01/06/17 01/06/17 01/06/17 01/07/17 01/07/17 01/07/17 07:00 15:00 23:00 07:00 15:00 23:00 Intake Total 120 ml 480 ml 480 ml 360 ml 1600 ml 170 ml Output Total 350 ml 125 ml 1000 ml 150 ml Balance 120 ml 480 ml 130 ml 235 ml 600 ml 20 ml Intake Oral 120 ml 480 ml 480 ml 360 ml 20 ml IV Total 600 ml 150 ml Other 1000 ml Output Urine Total 350 ml 125 ml Chest Tube Drainage Total 150 ml Other 1000 ml # Voids 2 4 0 # Bowel Movements 0 2 2 0 Result Diagram: 01/06/17 0740 01/07/17 0713 Imaging Last Impressions Chest X-Ray 01/07/17 0000 Signed Impressions: Service Date/Time: Saturday, January 07, 2017 13:07 - CONCLUSION: 1. No 2 left chest tubes without pneumothorax. Patchy bilateral airspace disease. Ted Gregorio MD Objective Remarks GENERAL: Alert, oriented 3, NAD. SKIN: Warm and dry. left chest tube dressing c/d/i, CT to suction, no air leak, draining serosanguineous fluid. HEAD: Normocephalic. EYES: No scleral icterus. No injection or drainage. NECK: Supple, trachea midline. No JVD or lymphadenopathy. CARDIOVASCULAR: Regular rate and rhythm. No murmur appreciated. RESPIRATORY: Obscured by CT suction. No wheezing. Clear on right anterior and posterior lung drake. GASTROINTESTINAL: Abdomen soft, non-tender, nondistended. MUSCULOSKELETAL: No cyanosis, or edema. BACK: Nontender without obvious deformity. No CVA tenderness. Procedures None A/P Problem List: (1) Pleural effusion ICD Code: J90 Status: Acute (2) Hypoxia ICD Code: R09.02 Status: Acute (3) Hypokalemia ICD Code: E87.6 Status: Acute Assessment and Plan Mr. Austin 76 year old male patient with hypoxia and recurrent/persistent pleural effusion. Patient underwent thoracentesis 6 weeks ago in [place] as well as an other thoracentesis about a week ago at [place]. Cytology was negative in the previous study. On arrival patient's oxygen saturation was 84% on room air which improved to 93 - 96 % on 2 L oxygen via nasal cannula. Off note patient has a history of 30 years smoking but he quit about 37 years ago. - Acute respiratory failure hypoxia - Left-sided pleural effusion - Status post left thorascopic exploration for drainage loculated pleural effusion, lysis of adhesions, pleural biopsies, talc pleurodesis today . - Patient has had antibiotics with no resolution. - Continue supplemental oxygen via nasal cannula. - Pulmonology and cardiothoracic surgery following. - CT thorax/chest without IV contrast reviewed by tx - shows loculated pleural effusions with pleural masses. - Hypokalemia - Potassium 3.1. KCL 25 meq PO x 1 now. - Will start KCL 20meq Q8hrs X 3 days. - Acute kidney injury - Creatinine improved 1.64 to 1.17 --> 1.09. - Hypertension, chronic - Hyperlipidemia - Continue amlodipine 10 mg daily, continue statin. - Continue patient's home medication metoprolol tartrate 100 mg every morning and 50 mg daily at bedtime. Full code. SCDs. Myra Schreiber DAMASO Jan 07, 2017 17:27
[2017-01-07] MEDS: oxyCODONE/ACETAMINOPHEN 5 MG/325 MG TAB PO PRN (17:35)
[2017-01-07] MEDS: INSULIN ASPART SUPPLEMENTAL SCALE SQ SCH (17:35)
[2017-01-07] MEDS ORDERED: POTASSIUM CHLORIDE 25 MEQ EFFERVESCENT TAB PO ONE (17:45)
[2017-01-07] MEDS ORDERED: ceFAZolin 1 GM PREMIX 50 ML IV SCH (19:00)
[2017-01-07] MEDS: SODIUM CHLORIDE 0.9% FLUSH 5 ML FLUSH IV FLUSH SCH (21:00)
[2017-01-07] MEDS: DOCUSATE CALCIUM 240 MG CAP PO SCH (22:05)
[2017-01-07] MEDS: METOPROLOL TARTRATE 50 MG TAB PO SCH (22:05)
[2017-01-07] MEDS: PANTOPRAZOLE SOD 40 MG DELAYED RELEASE TAB PO SCH (22:05)
[2017-01-07] MEDS: PRAVASTATIN SOD 20 MG TAB PO SCH (22:05)
[2017-01-07] MEDS: ACETAMINOPHEN 325 MG TAB PO PRN (22:17)
[2017-01-08] VITALS (27 sets, daily range): BP systolic 95–120; BP diastolic 58–71; PULSE 78–95; RESP 14–20; TEMP 97.7–98.7; O2SAT 91–96
[2017-01-08] MEDS: RESP: ALBUTEROL 2.5 MG/3 ML NEB (SCH) NEB ×4 (02:40→19:35)
[2017-01-08] MEDS: oxyCODONE/ACETAMINOPHEN 5 MG/325 MG TAB PO PRN ×4 (03:16→19:27)
[2017-01-08] MEDS: INSULIN ASPART SUPPLEMENTAL SCALE SQ SCH ×4 (06:00→18:00)
[2017-01-08] MEDS: POTASSIUM CHLORIDE 20 MEQ CONTROLLED RELEASE TAB PO SCH (06:25)
--- NOTE | 2017-01-08 06:27 | RADRPT ---
EXAM DATE/TIME: 01/08/2017 05:22 [facility] COMPARISON: No previous studies available for comparison. INDICATIONS : Shortness of breath, possible pulmonary disease. MEDICAL HISTORY : Cardiovascular disease. Hypertension SURGICAL HISTORY : Thoracotomy thoracentesis ENCOUNTER: Subsequent ACUITY: 3 weeks PAIN SCORE: 0/10 LOCATION: Bilateral chest FINDINGS: A single view of the chest demonstrates pleural-parenchymal density throughout the left lung. Right l mike relatively clear. Left-sided chest tube without pneumothorax. Cardiomegaly. Osseous structures a re intact. CONCLUSION: 1. Increasing pleural-parenchymal density throughout the left lung. 2. No pneumothorax. Zacarias Santos MD on January 08, 2017 at 6:25 Board Certified Radiologist. This report was verified electronically.
[2017-01-08 07:09] LABS: BICARBONATE 25.2 MEQ/L (21.0-32.0); POTASSIUM 3.7 MEQ/L (3.5-5.1)
[2017-01-08 07:16] LABS: AUTOMATED NEUTROPHIL # 12.5 TH/MM3 (1.8-7.7); BASOPHIL % 0.2 % (0.0-2.0); HEMATOCRIT 44.1 % (39.0-51.0); HEMO FLAGS DIFF FINAL; LYMPH % 3.4 % (9.0-44.0); LYMPHOCYTE # 0.5 TH/MM3 (1.0-4.8); MEAN CELL VOLUME 89.8 FL (80.0-100.0); MEAN CORPUSCULAR HEMOGLOBIN 30.6 PG (27.0-34.0); MEAN CORPUSCULAR HGB CONC 34.1 % (32.0-36.0); MONO % 10.4 % (0.0-8.0); PLATELET COUNT 262 TH/MM3 (150-450); RED BLOOD COUNT 4.92 MIL/MM3 (4.50-5.90); RED CELL DISTRIBUTION WIDTH 13.8 % (11.6-17.2); WHITE BLOOD COUNT 14.5 TH/MM3 (4.0-11.0)
--- NOTE | 2017-01-08 08:08 | PD.CAR.PN ---
CVT Progress Note CVT: POD #: 1 Subjective/Hospital Course: c/o pain related to chest tubes Objective: Vital Signs Date Time Temp Pulse Resp B/P Pulse Ox O2 Delivery O2 Flow Rate FiO2 01/08/17 06:00 84 01/08/17 05:00 86 01/08/17 04:06 92 Nasal Cannula 3.00 01/08/17 04:00 90 01/08/17 04:00 97.8 93 14 120/68 92 01/08/17 03:00 93 01/08/17 02:00 92 01/08/17 01:00 90 01/08/17 00:00 98.7 95 16 120/66 92 01/08/17 00:00 94 01/07/17 23:00 94 01/07/17 23:00 92 Nasal Cannula 3.00 01/07/17 22:00 94 01/07/17 21:12 91 Nasal Cannula 3.00 01/07/17 21:00 82 01/07/17 20:00 88 01/07/17 20:00 97.3 86 14 135/78 93 01/07/17 19:00 93 01/07/17 19:00 93 Nasal Cannula 3.00 01/07/17 18:35 22 01/07/17 18:00 82 01/07/17 17:00 73 01/07/17 16:30 64 01/07/17 16:12 94 Nasal Cannula 3.00 01/07/17 16:00 97.5 68 20 121/69 94 01/07/17 16:00 94 Nasal Cannula 3.00 01/07/17 15:30 96.5 70 15 112/59 96 Nasal Cannula 3 01/07/17 15:00 63 16 93/53 94 Nasal Cannula 3 Arterial Line 01/07/17 14:30 63 12 102/57 96 Nasal Cannula 3 108/48 01/07/17 14:15 63 12 103/57 96 Nasal Cannula 4 106/48 01/07/17 14:00 60 12 107/55 95 Nasal Cannula 4 104/66 01/07/17 13:45 61 12 101/56 97 Nasal Cannula 4 112/50 01/07/17 13:30 58 11 92/51 95 Nasal Cannula 4 101/46 01/07/17 13:23 58 13 89/52 94 89/43 01/07/17 13:15 61 17 88/55 92 Nasal Cannula 4 99/47 01/07/17 13:05 57 13 88/53 93 93/45 01/07/17 13:00 58 17 76/47 92 Nasal Cannula 4 01/07/17 12:57 97.4 60 18 92/53 95 Nasal Cannula 4 01/07/17 10:22 Nasal Cannula 2.00 Labs: Laboratory Tests Test 01/08/17 05:30 White Blood Count 14.5 TH/MM3 (4.0-11.0) Red Blood Count 4.92 MIL/MM3 (4.50-5.90) Hemoglobin 15.1 GM/DL (13.0-17.0) Hematocrit 44.1 % (39.0-51.0) Mean Corpuscular Volume 89.8 FL (80.0-100.0) Mean Corpuscular Hemoglobin 30.6 PG (27.0-34.0) Mean Corpuscular Hemoglobin 34.1 % Concent (32.0-36.0) Red Cell Distribution Width 13.8 % (11.6-17.2) Platelet Count 262 TH/MM3 (150-450) Mean Platelet Volume 8.2 FL (7.0-11.0) Neutrophils (%) (Auto) 86.0 % (16.0-70.0) Lymphocytes (%) (Auto) 3.4 % (9.0-44.0) Monocytes (%) (Auto) 10.4 % (0.0-8.0) Eosinophils (%) (Auto) 0.0 % (0.0-4.0) Basophils (%) (Auto) 0.2 % (0.0-2.0) Neutrophils # (Auto) 12.5 TH/MM3 (1.8-7.7) Lymphocytes # (Auto) 0.5 TH/MM3 (1.0-4.8) Monocytes # (Auto) 1.5 TH/MM3 (0-0.9) Eosinophils # (Auto) 0.0 TH/MM3 (0-0.4) Basophils # (Auto) 0.0 TH/MM3 (0-0.2) CBC Comment DIFF FINAL Differential Comment Sodium Level 141 MEQ/L (136-145) Potassium Level 3.7 MEQ/L (3.5-5.1) Chloride Level 104 MEQ/L (98-107) Carbon Dioxide Level 25.2 MEQ/L (21.0-32.0) Anion Gap 12 MEQ/L (5-15) Blood Urea Nitrogen 16 MG/DL (7-18) Creatinine 1.25 MG/DL (0.60-1.30) Estimat Glomerular Filtration 56 ML/MIN (>89) Rate Random Glucose 129 MG/DL (74-106) Calcium Level 8.1 MG/DL (8.5-10.1) Result Diagram: 01/08/1752901/08/17529 Imaging: Last 24 hours Impressions Chest X-Ray 01/08/17 06 Signed Impressions: Service Date/Time: Sunday, January 08, 2017 05:22 - CONCLUSION: 1. Increasing pleural-parenchymal density throughout the left lung. 2. No pneumothorax. Zacarias Santos MD Cardiovascular: RRR Telemetry: NSR Pulmonary: CTA GI/: NABS, NT Incision: dry and intact CT: 340ml since OR, no air leak Plan: Continue chest tubes to suction CXR in AM Encourage ambulation, up to chair Studies on fluid/tissue pending Yola Crouch MD Jan 08, 2017 08:08
[2017-01-08] MEDS: SODIUM CHLORIDE 0.9% FLUSH 5 ML FLUSH IV FLUSH SCH ×2 (08:54→21:00)
[2017-01-08] MEDS: DOCUSATE SODIUM 50 MG/SENNA 8.6 MG TAB PO SCH ×2 (08:55→20:42)
[2017-01-08] MEDS: METOPROLOL TARTRATE 100 MG TAB PO SCH (08:56)
--- NOTE | 2017-01-08 09:51 | HHI.PR ---
Subjective Remarks The patient was sitting in the chair. He said he has some discomfort at the site of the chest tube. He said it was also bleeding earlier this morning and the bandages had to be changed. He said pain medications were working. He has been having bowel movements. He has been ambulating. He has been getting sleep. No acute complaints at this time. Objective Vitals Vital Signs Date Time Temp Pulse Resp B/P Pulse Ox O2 Delivery O2 Flow Rate FiO2 01/08/17 09:41 96 Nasal Cannula 2.50 01/08/17 08:59 98.0 88 18 102/60 92 01/08/17 06:00 84 01/08/17 05:00 86 01/08/17 04:06 92 Nasal Cannula 3.00 01/08/17 04:00 90 01/08/17 04:00 97.8 93 14 120/68 92 01/08/17 03:00 93 01/08/17 02:00 92 01/08/17 01:00 90 01/08/17 00:00 98.7 95 16 120/66 92 01/08/17 00:00 94 01/07/17 23:00 94 01/07/17 23:00 92 Nasal Cannula 3.00 01/07/17 22:00 94 01/07/17 21:12 91 Nasal Cannula 3.00 01/07/17 21:00 82 01/07/17 20:00 88 01/07/17 20:00 97.3 86 14 135/78 93 01/07/17 19:00 93 01/07/17 19:00 93 Nasal Cannula 3.00 01/07/17 18:35 22 01/07/17 18:00 82 01/07/17 17:00 73 01/07/17 16:30 64 01/07/17 16:12 94 Nasal Cannula 3.00 01/07/17 16:00 97.5 68 20 121/69 94 01/07/17 16:00 94 Nasal Cannula 3.00 01/07/17 15:30 96.5 70 15 112/59 96 Nasal Cannula 3 01/07/17 15:00 63 16 93/53 94 Nasal Cannula 3 Arterial Line 01/07/17 14:30 63 12 102/57 96 Nasal Cannula 3 108/48 01/07/17 14:15 63 12 103/57 96 Nasal Cannula 4 106/48 01/07/17 14:00 60 12 107/55 95 Nasal Cannula 4 104/66 01/07/17 13:45 61 12 101/56 97 Nasal Cannula 4 112/50 01/07/17 13:30 58 11 92/51 95 Nasal Cannula 4 101/46 01/07/17 13:23 58 13 89/52 94 89/43 01/07/17 13:15 61 17 88/55 92 Nasal Cannula 4 99/47 01/07/17 13:05 57 13 88/53 93 93/45 01/07/17 13:00 58 17 76/47 92 Nasal Cannula 4 01/07/17 12:57 97.4 60 18 92/53 95 Nasal Cannula 4 01/07/17 10:22 Nasal Cannula 2.00 I/O 01/07/17 01/07/17 01/07/17 01/08/17 01/08/17 01/08/17 07:00 15:00 23:00 07:00 15:00 23:00 Intake Total 360 ml 1600 ml 410 ml 680 ml Output Total 125 ml 1000 ml 210 ml 430 ml Balance 235 ml 600 ml 200 ml 250 ml Intake Oral 360 ml 260 ml 480 ml IV Total 600 ml 150 ml 200 ml Other 1000 ml Output Urine Total 125 ml 300 ml Chest Tube Drainage Total 210 ml 130 ml Other 1000 ml # Voids 0 # Bowel Movements 0 Result Diagram: 01/08/17 0530 01/08/17 0530 Imaging Last Impressions Chest X-Ray 01/08/17 0600 Signed Impressions: Service Date/Time: Sunday, January 08, 2017 05:22 - CONCLUSION: 1. Increasing pleural-parenchymal density throughout the left lung. 2. No pneumothorax. Zacarias Santos MD Objective Remarks GENERAL: Alert, oriented 3, NAD. SKIN: Warm and dry. Left chest tube dressing c/d/i. HEAD: Normocephalic. EYES: No scleral icterus. No injection or drainage. NECK: Supple, trachea midline. No JVD or lymphadenopathy. CARDIOVASCULAR: Regular rate and rhythm. No murmur appreciated. RESPIRATORY: Crackles at the left base. GASTROINTESTINAL: Abdomen soft, non-tender, nondistended. MUSCULOSKELETAL: No cyanosis, or edema. BACK: Nontender without obvious deformity. No CVA tenderness. NEURO: No gross deficits. PSYCH: Mood and affect appropriate. Procedures Left thorascopic exploration for drainage of the loculated pleural effusion, lysis of adhesions, pleural biopsies, talc pleurodesis 01/07/17 Medications and IVs Current Medications Medications (Trade) Dose Ordered Sig/Jung Route Start Time Stop Time Status Last Admin (Narcan Inj) 0.4 mg UNSCH PRN IV 01/03/17 18:45 (Gianna-Colace) 1 tab BID PO 01/03/17 21:00 01/08/17 08:55 (Senokot) 17.2 mg Q12H PRN PO 01/03/17 18:45 (Dulcolax Supp) 10 mg DAILY PRN RECTAL 01/03/17 18:45 (Lactulose Liq) 30 ml DAILY PRN PO 01/03/17 18:45 (Pravachol) 20 mg HS PO 01/03/17 22:00 01/07/17 22:05 (Lopressor) 50 mg HS PO 01/03/17 22:00 01/07/17 22:05 (Norvasc) 10 mg DAILY PO 01/04/17 09:00 01/08/17 08:54 Patient Own Medication 1 ea QID INH 01/04/17 09:00 Hold Metoprolol Tartrate 100 mg 100 mg DAILY@08 PO 01/04/17 08:00 01/08/17 08:56 Lactated Ringer's 1,000 ml @ 30 mls/hr Q24H PRN IV 01/07/17 05:15 01/10/17 05:14 (NS 500 ml Inj) 500 ml @ 30 mls/hr [id number] PRN IV 01/07/17 05:15 01/10/17 05:14 (NS Flush) 2 ml BID IV FLUSH 01/07/17 21:00 01/08/17 08:54 (NS Flush) 2 ml UNSCH PRN IV FLUSH 01/07/17 12:45 (Protonix) 40 mg HS PO 01/07/17 21:00 01/07/17 22:05 (Zofran Inj) 4 mg Q6H PRN IV PUSH 01/07/17 12:45 (Surfak) 240 mg HS PO 01/07/17 21:00 01/07/17 22:05 (Milk Of Magnesia Liq) 30 ml DAILY PRN PO 01/07/17 12:45 (Tylenol) 650 mg Q4H PRN PO 01/07/17 12:45 01/07/17 22:17 (NovoLOG SUPPLEMENTAL SCALE) Q6HR SQ 01/07/17 18:00 (D50w (Vial) Inj) 50 ml UNSCH PRN IV 01/07/17 12:45 (Glucagon Inj) 1 mg UNSCH PRN IV 01/07/17 12:45 (Percocet 5-325 Mg) 1 tab Q3H PRN PO 01/07/17 12:45 01/08/17 03:16 (Percocet 5-325 Mg) 2 tab Q3H PRN PO 01/07/17 12:45 Miscellaneous Information ALL NURSING DEPARTME... UNSCH PRN .XX 01/07/17 13:00 01/08/17 12:59 (Ancef Inj/NS Inj) 100 ml @ 200 mls/hr Q8H IV 01/07/17 18:00 01/08/17 10:29 01/08/17 02:58 A/P Problem List: (1) Pleural effusion ICD Code: J90 Status: Acute (2) Hypoxia ICD Code: R09.02 Status: Acute (3) Hypokalemia ICD Code: E87.6 Status: Acute Assessment and Plan Mr. Austin 76 year old male patient with hypoxia and recurrent/persistent pleural effusion. Patient underwent thoracentesis 6 weeks ago in [place] as well as an other thoracentesis about a week ago at [place]. Cytology was negative in the previous study. On arrival patient's oxygen saturation was 84% on room air which improved to 93 - 96 % on 2 L oxygen via nasal cannula. Off note patient has a history of 30 years smoking but he quit about 37 years ago. Acute respiratory failure/ Left-sided pleural effusion CT thorax/chest shows loculated pleural effusions with pleural masses. Pulmonology ad CT surgery consults appreciated. Status post left thorascopic exploration for drainage of the loculated pleural effusion, lysis of adhesions, pleural biopsies, talc pleurodesis 01/07/17. - oxygen and nebs as needed. - continue IV cefazolin and follow cultures. - follow up with pulmonology. - chest tube per cardiothoracic surgery. Hypokalemia Potassium 3.1. - replete and monitor. - check mag level. Hyperglycemia Glucose level slightly elevated. - ISS. - check A1c. Full code. SCDs. Discharge Planning Awaiting clinical improvement Yovany Cooper DO Jan 08, 2017 09:51
[2017-01-08] MEDS: PANTOPRAZOLE SOD 40 MG DELAYED RELEASE TAB PO SCH (20:42)
[2017-01-08] MEDS: PRAVASTATIN SOD 20 MG TAB PO SCH (20:42)
[2017-01-08] MEDS: DOCUSATE CALCIUM 240 MG CAP PO SCH (20:42)
[2017-01-08] MEDS: METOPROLOL TARTRATE 50 MG TAB PO SCH (20:42)
[2017-01-09] VITALS (28 sets, daily range): BP systolic 102–135; BP diastolic 59–75; PULSE 80–110; RESP 18–22; TEMP 98–98.9; O2SAT 90–97
[2017-01-09] MEDS: RESP: ALBUTEROL 2.5 MG/3 ML NEB (SCH) NEB ×4 (03:12→20:53)
[2017-01-09] MEDS: oxyCODONE/ACETAMINOPHEN 5 MG/325 MG TAB PO PRN ×3 (03:38→20:57)
[2017-01-09 05:02] LABS: HEMATOCRIT 40.9 % (39.0-51.0); MEAN CORPUSCULAR HEMOGLOBIN 30.7 PG (27.0-34.0); MEAN CORPUSCULAR HGB CONC 34.1 % (32.0-36.0); PLATELET COUNT 256 TH/MM3 (150-450); RED BLOOD COUNT 4.54 MIL/MM3 (4.50-5.90); REVIEW FLAG FINAL; WHITE BLOOD COUNT 14.1 TH/MM3 (4.0-11.0)
[2017-01-09 05:40] LABS: BICARBONATE 27.2 MEQ/L (21.0-32.0); MAGNESIUM 1.8 MG/DL (1.5-2.5); POTASSIUM 3.3 MEQ/L (3.5-5.1)
[2017-01-09] MEDS: INSULIN ASPART SUPPLEMENTAL SCALE SQ SCH ×5 (06:00→20:57)
--- NOTE | 2017-01-09 06:22 | RADRPT ---
EXAM DATE/TIME: 01/09/2017 05:21 [facility] COMPARISON: CHEST SINGLE AP, January 08, 2017, 5:22. INDICATIONS : Shortness of breath, possible pulmonary disease. MEDICAL HISTORY : Cardiovascular disease. Hypertension SURGICAL HISTORY : Thoracotomy Thoracentesis ENCOUNTER: Subsequent ACUITY: 3 weeks PAIN SCORE: 0/10 LOCATION: Bilateral chest FINDINGS: A single view of the chest demonstrates left basilar pleural-parenchymal density. Left-sided chest tu be without pneumothorax. Tiny right pleural effusion. Osseous structures are intact. CONCLUSION: 1. Stable chest. 2. Left basilar pleural-parenchymal density without pneumothorax. Zacarias Santos MD on January 09, 2017 at 6:19 Board Certified Radiologist. This report was verified electronically.
[2017-01-09] MEDS: METOPROLOL TARTRATE 100 MG TAB PO SCH (08:38)
[2017-01-09] MEDS: SODIUM CHLORIDE 0.9% FLUSH 5 ML FLUSH IV FLUSH SCH ×2 (08:38→20:58)
[2017-01-09] MEDS: DOCUSATE SODIUM 50 MG/SENNA 8.6 MG TAB PO SCH ×2 (08:38→20:57)
[2017-01-09] MEDS ORDERED: POTASSIUM CHLORIDE 20 MEQ CONTROLLED RELEASE TAB PO ONE (09:00)
--- NOTE | 2017-01-09 09:17 | HHI.PR ---
Subjective Remarks The patient says he has not been urinating that much. He says he's had prostate problems but not kidney problems in the past. He says the chest tube site is somewhat painful but okay with pain medication. He mentions a 30 pound weight loss recently and is concerned about that. He says he had a colonoscopy within 5 years which was normal except for a couple polyps which were removed. No other acute complaints. Objective Vitals Vital Signs Date Time Temp Pulse Resp B/P Pulse Ox O2 Delivery O2 Flow Rate FiO2 01/09/17 08:00 98.5 90 20 116/69 01/09/17 06:06 92 Nasal Cannula 3.50 01/09/17 06:00 88 01/09/17 05:00 86 01/09/17 04:05 96 01/09/17 04:00 98.3 94 18 135/75 92 01/09/17 03:00 86 01/09/17 02:00 82 01/09/17 01:14 92 Nasal Cannula 3.50 01/09/17 01:00 82 01/09/17 00:00 98.0 85 18 129/71 92 01/09/17 00:00 85 01/08/17 23:00 84 01/08/17 22:00 86 01/08/17 21:00 92 Nasal Cannula 3.00 01/08/17 21:00 92 01/08/17 20:00 98.4 90 18 116/71 92 01/08/17 20:00 95 01/08/17 19:37 91 Nasal Cannula 2.00 01/08/17 19:00 92 01/08/17 18:00 80 01/08/17 17:00 78 01/08/17 16:11 97.7 83 18 106/63 91 01/08/17 16:00 82 01/08/17 16:00 91 Nasal Cannula 3.50 01/08/17 15:00 80 01/08/17 14:00 78 01/08/17 12:00 98.4 80 20 95/58 92 01/08/17 12:00 86 01/08/17 11:00 92 Nasal Cannula 3.50 01/08/17 11:00 88 01/08/17 10:00 86 01/08/17 09:41 96 Nasal Cannula 2.50 I/O 6/2401/08/17 01/08/17 01/09/17 01/09/17 01/09/17 07:00 15:00 23:00 07:00 15:00 23:00 Intake Total 680 ml 600 ml 120 ml Output Total 430 ml 325 ml 315 ml Balance 250 ml 275 ml -195 ml Intake Oral 480 ml 600 ml 120 ml IV Total 200 ml Output Urine Total 300 ml 225 ml 275 ml Chest Tube Drainage Total 130 ml 100 ml 40 ml Result Diagram: 01/09/17 0340 01/09/17 0340 Imaging Last Impressions Chest X-Ray 01/09/17 06 Signed Impressions: Service Date/Time: Monday, January 09, 2017 05:21 - CONCLUSION: 1. Stable chest. 2. Left basilar pleural-parenchymal density without pneumothorax. Zacarias Santos MD Objective Remarks GENERAL: Alert, oriented 3, NAD. SKIN: Warm and dry. Left chest tube dressing c/d/i. HEAD: Normocephalic. EYES: No scleral icterus. No injection or drainage. NECK: Supple, trachea midline. No JVD or lymphadenopathy. CARDIOVASCULAR: Regular rate and rhythm. No murmur appreciated. RESPIRATORY: Decreased breath sounds and crackles at the left base. GASTROINTESTINAL: Abdomen soft, non-tender, nondistended. MUSCULOSKELETAL: No cyanosis, or edema. BACK: Nontender without obvious deformity. No CVA tenderness. NEURO: No gross deficits. PSYCH: Mood and affect appropriate. Procedures Left thorascopic exploration for drainage of the loculated pleural effusion, lysis of adhesions, pleural biopsies, talc pleurodesis 01/07/17 Medications and IVs Current Medications Medications (Trade) Dose Ordered Sig/Jung Route Start Time Stop Time Status Last Admin (Narcan Inj) 0.4 mg UNSCH PRN IV 01/03/17 18:45 (Gianna-Colace) 1 tab BID PO 01/03/17 21:00 01/09/17 08:38 (Senokot) 17.2 mg Q12H PRN PO 01/03/17 18:45 (Dulcolax Supp) 10 mg DAILY PRN RECTAL 01/03/17 18:45 (Lactulose Liq) 30 ml DAILY PRN PO 01/03/17 18:45 (Pravachol) 20 mg HS PO 01/03/17 22:00 01/08/17 20:42 (Lopressor) 50 mg HS PO 01/03/17 22:00 01/08/17 20:42 (Norvasc) 10 mg DAILY PO 01/04/17 09:00 01/09/17 08:38 Patient Own Medication 1 ea QID INH 01/04/17 09:00 Hold Metoprolol Tartrate 100 mg 100 mg DAILY@08 PO 01/04/17 08:00 01/09/17 08:38 Lactated Ringer's 1,000 ml @ 30 mls/hr Q24H PRN IV 01/07/17 05:15 01/10/17 05:14 (NS 500 ml Inj) 500 ml @ 30 mls/hr [id number] PRN IV 01/07/17 05:15 01/10/17 05:14 (NS Flush) 2 ml BID IV FLUSH 01/07/17 21:00 01/09/17 08:38 (NS Flush) 2 ml UNSCH PRN IV FLUSH 01/07/17 12:45 (Protonix) 40 mg HS PO 01/07/17 21:00 01/08/17 20:42 (Zofran Inj) 4 mg Q6H PRN IV PUSH 01/07/17 12:45 (Surfak) 240 mg HS PO 01/07/17 21:00 01/08/17 20:42 (Milk Of Magnesia Liq) 30 ml DAILY PRN PO 01/07/17 12:45 (Tylenol) 650 mg Q4H PRN PO 01/07/17 12:45 01/07/17 22:17 (NovoLOG SUPPLEMENTAL SCALE) Q6HR SQ 01/07/17 18:00 (D50w (Vial) Inj) 50 ml UNSCH PRN IV 01/07/17 12:45 (Glucagon Inj) 1 mg UNSCH PRN IV 01/07/17 12:45 (Percocet 5-325 Mg) 1 tab Q3H PRN PO 01/07/17 12:45 01/09/17 03:38 Oxycodone/ Acetaminophen 2 tab 2 tab Q3H PRN PO 01/07/17 12:45 01/08/17 19:27 (1/2 NS 1000 ml Inj) 1,000 ml @ 100 mls/hr Q10H IV 01/09/17 09:00 01/10/17 04:59 A/P Problem List: (1) Pleural effusion ICD Code: J90 Status: Acute (2) Hypoxia ICD Code: R09.02 Status: Acute (3) Hypokalemia ICD Code: E87.6 Status: Acute Assessment and Plan Mr. Austin 76 year old male patient with hypoxia and recurrent/persistent pleural effusion. Patient underwent thoracentesis 6 weeks ago in [place] as well as an other thoracentesis about a week ago at [place]. Cytology was negative in the previous study. On arrival patient's oxygen saturation was 84% on room air which improved to 93 - 96 % on 2 L oxygen via nasal cannula. Off note patient has a history of 30 years smoking but he quit about 37 years ago. Acute respiratory failure/ Left-sided pleural effusion CT thorax/chest shows loculated pleural effusions with pleural masses. Pulmonology ad CT surgery consults appreciated. Status post left thorascopic exploration for drainage of the loculated pleural effusion, lysis of adhesions, pleural biopsies, talc pleurodesis 01/07/17. - oxygen and nebs as needed. - follow cultures and pathology. - follow up with pulmonology. - chest tube per cardiothoracic surgery. Acute renal failure Creatinine has been increasing. Upon review of labs the patient appears to have some form of chronic renal disease. - Check UA, urine sodium and urine creatinine. - IV fluids. - Avoid nephrotoxic agents. - Renal ultrasound. Weight loss The patient endorses a recent 30 pound weight loss. Possibly secondary to lung malignancy which is being worked up. - Check a TSH, A1c and LFTs. - Follow pathology. - Outpatient follow-up. Hypokalemia The patient says he always has low potassium. - replete and monitor. Hyperglycemia Glucose level slightly elevated. He was told he has borderline diabetes. - ISS. - check A1c. Full code. SCDs. Discharge Planning Awaiting clinical improvement Yovany Cooper DO Jan 09, 2017 09:17
[2017-01-09] MEDS: SODIUM CHLOR 0.45% 1000 ML INJ 1,000 ML IV SCH ×2 (10:04→19:00)
--- NOTE | 2017-01-09 10:53 | PD.CAR.PN ---
CVT Progress Note Subjective/Hospital Course: c/o pain related to chest tubes 01/09/17 Creatinine up. Patient has no complaints. Weight is down quite a bit since admission. Objective: Vital Signs Date Time Temp Pulse Resp B/P Pulse Ox O2 Delivery O2 Flow Rate FiO2 01/09/17 10:00 97 Nasal Cannula 3.00 01/09/17 08:00 98.5 90 20 116/69 01/09/17 06:06 92 Nasal Cannula 3.50 01/09/17 06:00 88 01/09/17 05:00 86 01/09/17 04:05 96 01/09/17 04:00 98.3 94 18 135/75 92 01/09/17 03:00 86 01/09/17 02:00 82 01/09/17 01:14 92 Nasal Cannula 3.50 01/09/17 01:00 82 01/09/17 00:00 98.0 85 18 129/71 92 01/09/17 00:00 85 01/08/17 23:00 84 01/08/17 22:00 86 01/08/17 21:00 92 Nasal Cannula 3.00 01/08/17 21:00 92 01/08/17 20:00 98.4 90 18 116/71 92 01/08/17 20:00 95 01/08/17 19:37 91 Nasal Cannula 2.00 01/08/17 19:00 92 01/08/17 18:00 80 01/08/17 17:00 78 01/08/17 16:11 97.7 83 18 106/63 91 01/08/17 16:00 82 01/08/17 16:00 91 Nasal Cannula 3.50 01/08/17 15:00 80 01/08/17 14:00 78 01/08/17 12:00 98.4 80 20 95/58 92 01/08/17 12:00 86 01/08/17 11:00 92 Nasal Cannula 3.50 01/08/17 11:00 88 Labs: Laboratory Tests Test 01/09/17 03:40 White Blood Count 14.1 TH/MM3 (4.0-11.0) Red Blood Count 4.54 MIL/MM3 (4.50-5.90) Hemoglobin 13.9 GM/DL (13.0-17.0) Hematocrit 40.9 % (39.0-51.0) Mean Corpuscular Volume 90.0 FL (80.0-100.0) Mean Corpuscular Hemoglobin 30.7 PG (27.0-34.0) Mean Corpuscular Hemoglobin 34.1 % Concent (32.0-36.0) Red Cell Distribution Width 14.0 % (11.6-17.2) Platelet Count 256 TH/MM3 (150-450) Mean Platelet Volume 8.1 FL (7.0-11.0) Sodium Level 140 MEQ/L (136-145) Potassium Level 3.3 MEQ/L (3.5-5.1) Chloride Level 101 MEQ/L (98-107) Carbon Dioxide Level 27.2 MEQ/L (21.0-32.0) Anion Gap 12 MEQ/L (5-15) Blood Urea Nitrogen 28 MG/DL (7-18) Creatinine 2.19 MG/DL (0.60-1.30) Estimat Glomerular Filtration 29 ML/MIN (>89) Rate Random Glucose 103 MG/DL (74-106) Calcium Level 8.6 MG/DL (8.5-10.1) Magnesium Level 1.8 MG/DL (1.5-2.5) Result Diagram: 01/09/17 0340 01/09/17 0340 Imaging: Last 24 hours Impressions Chest X-Ray 01/09/17 0600 Signed Impressions: Service Date/Time: Monday, January 09, 2017 05:21 - CONCLUSION: 1. Stable chest. 2. Left basilar pleural-parenchymal density without pneumothorax. Zacarias Santos MD Cardiovascular: RRR Telemetry: NSR Pulmonary: Decreased BS on left GI/: NABS, NT Incision: dry and intact CT: min output, no air leak Plan: Agree with Dr. Cooper plan for increased creatinine. Bladder scan for possible retention PATH pending Chest tube to water seal Yola Crouch MD Jan 09, 2017 10:53
[2017-01-09 11:21] LABS: INDIRECT BILIRUBIN 0.3 MG/DL (0.0-0.8); TOTAL BILIRUBIN ADULT 0.4 MG/DL (0.2-1.0)
--- NOTE | 2017-01-09 14:43 | RADRPT ---
EXAM DATE/TIME: 01/09/2017 13:36 [facility] COMPARISON: No previous studies available for comparison. INDICATIONS : Increased BUN/Creatinine. MEDICAL HISTORY : Hypercholesterolemia. Gastroesophageal reflux disease. Hypertension. Hearing loss. Coronary artery di sease. Pleural effusion. Renal calculi. Skin cancer. SURGICAL HISTORY : Tonsillectomy. Thoracentesis. Cardiac catheterization. ENCOUNTER: Initial ACUITY: 1 day PAIN SCORE: 4/10 LOCATION: Bilateral flank MEASUREMENTS: RIGHT KIDNEY: 11.5 x 5.5 x 5.9 cm LEFT KIDNEY: 11.1 x 5.8 x 6.3 cm FINDINGS: RIGHT KIDNEY: The kidneys appear echogenic. There is a 4.3 cm cyst at the mid right kidney. There is a 1.1 cm echog enic focus in the mid right kidney which may represent a stone. No hydronephrosis is seen. LEFT KIDNEY: The kidneys appear echogenic. There is a 2.4 cm cyst at the mid left kidney. There is a 0.8 cm echoge murphy focus at the upper pole which may represent a stone. No hydronephrosis is seen. BLADDER: There is an impression of the bladder floor from the prostate. The bladder is otherwise unremarkable. CONCLUSION: 1. Echogenic kidneys typically seen with medical renal disease. Hydronephrosis is not seen on either side. 2. Possible mild stripping renal stones seen bilaterally. 3. Bilateral renal cysts. 4. Impression on the bladder floor from the prostate. Jairo Crowley MD on January 09, 2017 at 14:39 Board Certified Radiologist. This report was verified electronically.
[2017-01-09 15:55] LABS: BACTERIA, URINE RARE /hpf; BLOOD, URINE NEG (NEG); COMMENT (UR) CULT NOT INDICATED; CULTURE IF INDICATED CULT NOT INDICATED; GLUCOSE,URINE NEG (NEG); HYALINE CAST, URINE 3 /lpf (RARE); KETONE, URINE NEG (NEG); MUCUS URINE FEW /lpf (OCC); NITRITE,URINE NEG (NEG); URINE COLOR YELLOW (YELLW/STRAW)
[2017-01-09] MEDS: METOPROLOL TARTRATE 50 MG TAB PO SCH (20:57)
[2017-01-09] MEDS: PANTOPRAZOLE SOD 40 MG DELAYED RELEASE TAB PO SCH (20:57)
[2017-01-09] MEDS: PRAVASTATIN SOD 20 MG TAB PO SCH (20:57)
[2017-01-09] MEDS: DOCUSATE CALCIUM 240 MG CAP PO SCH (20:57)
[2017-01-10] VITALS (31 sets, daily range): BP systolic 116–145; BP diastolic 67–83; PULSE 82–97; RESP 18–22; TEMP 97.9–98.9; O2SAT 90–95
[2017-01-10] MEDS: oxyCODONE/ACETAMINOPHEN 5 MG/325 MG TAB PO PRN ×5 (00:55→21:05)
[2017-01-10] MEDS: RESP: ALBUTEROL 2.5 MG/3 ML NEB (SCH) NEB ×4 (03:27→21:34)
--- NOTE | 2017-01-10 05:20 | RADRPT ---
EXAM DATE/TIME: 01/10/2017 05:08 [facility] COMPARISON: CHEST SINGLE AP, January 09, 2017, 5:21. INDICATIONS : Pleural effusion, chest pain. MEDICAL HISTORY : Cardiovascular disease. Hypertension. SURGICAL HISTORY : Thoracotomy. Thoracentesis. ENCOUNTER: Subsequent ACUITY: 2 weeks PAIN SCORE: 0/10 LOCATION: Bilateral chest FINDINGS: Left chest drainage tube remains projected at the left apex. There has been an increase in the size of left pleural effusion, now causing loss of delineation of most of the left heart border and the en tire left hemidiaphragm. The right lung is clear. No evidence of mediastinal shift. CONCLUSION: Increasing size left pleural effusion. Manjit Maharaj MD on January 10, 2017 at 5:18 Board Certified Radiologist. This report was verified electronically.
[2017-01-10] MEDS: INSULIN ASPART SUPPLEMENTAL SCALE SQ SCH ×3 (05:55→18:00)
[2017-01-10 07:04] LABS: HEMATOCRIT 40.1 % (39.0-51.0); MEAN CELL VOLUME 90.8 FL (80.0-100.0); MEAN CORPUSCULAR HEMOGLOBIN 30.9 PG (27.0-34.0); PLATELET COUNT 219 TH/MM3 (150-450); RED BLOOD COUNT 4.42 MIL/MM3 (4.50-5.90); REVIEW FLAG FINAL; WHITE BLOOD COUNT 9.1 TH/MM3 (4.0-11.0)
[2017-01-10 07:35] LABS: BICARBONATE 25.5 MEQ/L (21.0-32.0); MAGNESIUM 1.8 MG/DL (1.5-2.5); POTASSIUM 3.6 MEQ/L (3.5-5.1)
[2017-01-10] MEDS: DOCUSATE SODIUM 50 MG/SENNA 8.6 MG TAB PO SCH ×2 (08:37→21:05)
[2017-01-10] MEDS: METOPROLOL TARTRATE 100 MG TAB PO SCH (08:37)
[2017-01-10] MEDS: SODIUM CHLORIDE 0.9% FLUSH 5 ML FLUSH IV FLUSH SCH ×2 (08:38→21:00)
--- NOTE | 2017-01-10 11:53 | PD.CAR.PN ---
CVT Progress Note CVT: POD #: 3 Subjective/Hospital Course: c/o pain related to chest tubes 01/09/17 Creatinine up. Patient has no complaints. Weight is down quite a bit since admission. 01/10/17 no complaints today renal function improving continues on 4 liters NC Objective: Vital Signs Date Time Temp Pulse Resp B/P Pulse Ox O2 Delivery O2 Flow Rate FiO2 01/10/17 11:11 91 Nasal Cannula 4.00 01/10/17 11:09 97.9 88 22 116/78 91 01/10/17 09:00 88 01/10/17 08:50 94 Nasal Cannula 4.00 01/10/17 08:42 84 22 129/83 94 01/10/17 08:33 94 Nasal Cannula 4.00 01/10/17 08:33 94 Nasal Cannula 4.00 01/10/17 08:29 95 Nasal Cannula 4.00 01/10/17 08:00 84 01/10/17 07:00 84 01/10/17 06:00 95 01/10/17 05:00 97 01/10/17 04:10 90 Nasal Cannula 4.00 01/10/17 04:00 91 01/10/17 04:00 98.9 97 18 145/75 92 01/10/17 03:00 97 01/10/17 02:00 96 01/10/17 01:00 96 01/10/17 00:10 90 Nasal Cannula 4.00 01/10/17 00:00 91 01/10/17 00:00 98.4 89 18 126/67 90 01/09/17 23:00 94 01/09/17 22:00 98 01/09/17 21:00 100 01/09/17 20:53 94 Nasal Cannula 4.00 01/09/17 20:15 94 Nasal Cannula 4.00 01/09/17 20:00 98.9 94 18 112/59 90 01/09/17 20:00 100 01/09/17 19:00 102 01/09/17 18:00 102 01/09/17 17:00 98 01/09/17 16:30 98.4 94 22 116/68 92 01/09/17 16:00 93 Nasal Cannula 2.00 01/09/17 16:00 88 01/09/17 15:00 96 01/09/17 14:00 92 01/09/17 13:00 86 01/09/17 12:00 98.6 87 18 102/64 01/09/17 12:00 92 Nasal Cannula 2.00 01/09/17 12:00 84 Labs: Laboratory Tests Test 01/10/17 05:56 White Blood Count 9.1 TH/MM3 (4.0-11.0) Red Blood Count 4.42 MIL/MM3 (4.50-5.90) Hemoglobin 13.7 GM/DL (13.0-17.0) Hematocrit 40.1 % (39.0-51.0) Mean Corpuscular Volume 90.8 FL (80.0-100.0) Mean Corpuscular Hemoglobin 30.9 PG (27.0-34.0) Mean Corpuscular Hemoglobin 34.0 % Concent (32.0-36.0) Red Cell Distribution Width 14.0 % (11.6-17.2) Platelet Count 219 TH/MM3 (150-450) Mean Platelet Volume 8.4 FL (7.0-11.0) Sodium Level 138 MEQ/L (136-145) Potassium Level 3.6 MEQ/L (3.5-5.1) Chloride Level 102 MEQ/L (98-107) Carbon Dioxide Level 25.5 MEQ/L (21.0-32.0) Anion Gap 11 MEQ/L (5-15) Blood Urea Nitrogen 26 MG/DL (7-18) Creatinine 1.77 MG/DL (0.60-1.30) Estimat Glomerular Filtration 38 ML/MIN (>89) Rate Random Glucose 92 MG/DL (74-106) Calcium Level 8.5 MG/DL (8.5-10.1) Magnesium Level 1.8 MG/DL (1.5-2.5) Result Diagram: 01/10/17 0556 01/10/17 0556 Imaging: Last 24 hours Impressions Chest X-Ray 01/10/17 0600 Signed Impressions: Service Date/Time: Tuesday, January 10, 2017 05:08 - CONCLUSION: Increasing size left pleural effusion. Manjit Maharaj MD Cardiovascular: RRR Telemetry: NSR Pulmonary: Decreased BS on left GI/: NABS, NT Incision: dry and intact CT: 175ml/24 hrs, no air leak Plan: Renal function and urine output improved with IVF Continues to have oxygen requirement - currently 4liters NC. CXR concerning with LLL consolidation vs loculated effusion. He has 2 large chest tubes, so effusion is less likely. I will request a non-contrast CT of the chest today. Yola Crouch MD Jan 10, 2017 11:53
--- NOTE | 2017-01-10 12:18 | HHI.PR ---
Subjective Remarks Follow-up for shortness of breathing and perfusion Patient had no complaints today. He stated that he is here for shortness of breathing but that has improved. Patient stated that he is urinating. He stated that the IV fluids help. Patient denies any symptoms of BPH. Patient had no events since he was last seen. Objective Vitals Vital Signs Date Time Temp Pulse Resp B/P Pulse Ox O2 Delivery O2 Flow Rate FiO2 01/10/17 11:11 91 Nasal Cannula 4.00 01/10/17 11:09 97.9 88 22 116/78 91 01/10/17 09:00 88 01/10/17 08:50 94 Nasal Cannula 4.00 01/10/17 08:42 84 22 129/83 94 01/10/17 08:33 94 Nasal Cannula 4.00 01/10/17 08:33 94 Nasal Cannula 4.00 01/10/17 08:29 95 Nasal Cannula 4.00 01/10/17 08:00 84 01/10/17 07:00 84 01/10/17 06:00 95 01/10/17 05:00 97 01/10/17 04:10 90 Nasal Cannula 4.00 01/10/17 04:00 91 01/10/17 04:00 98.9 97 18 145/75 92 01/10/17 03:00 97 01/10/17 02:00 96 01/10/17 01:00 96 01/10/17 00:10 90 Nasal Cannula 4.00 01/10/17 00:00 91 01/10/17 00:00 98.4 89 18 126/67 90 01/09/17 23:00 94 01/09/17 22:00 98 01/09/17 21:00 100 01/09/17 20:53 94 Nasal Cannula 4.00 01/09/17 20:15 94 Nasal Cannula 4.00 01/09/17 20:00 98.9 94 18 112/59 90 01/09/17 20:00 100 01/09/17 19:00 102 01/09/17 18:00 102 01/09/17 17:00 98 01/09/17 16:30 98.4 94 22 116/68 92 01/09/17 16:00 93 Nasal Cannula 2.00 01/09/17 16:00 88 01/09/17 15:00 96 01/09/17 14:00 92 01/09/17 13:00 86 I/O 01/09/17 01/09/17 01/09/17 01/10/17 01/10/17 01/10/17 07:00 15:00 23:00 07:00 15:00 23:00 Intake Total 120 ml 1260 ml 1440 ml Output Total 315 ml 500 ml 650 ml Balance -195 ml 760 ml 790 ml Intake Oral 120 ml 560 ml 240 ml IV Total 700 ml 1200 ml Output Urine Total 275 ml 375 ml 600 ml Chest Tube Drainage Total 40 ml 125 ml 50 ml Bladder Scan Volume Amount 69 ml Result Diagram: 01/10/17 0556 01/10/17 0556 Imaging Last Impressions Chest X-Ray 01/10/17 0600 Signed Impressions: Service Date/Time: Tuesday, January 10, 2017 05:08 - CONCLUSION: Increasing size left pleural effusion. Manjit Maharaj MD Renal Ultrasound 01/09/17 0000 Signed Impressions: Service Date/Time: Monday, January 09, 2017 13:36 - CONCLUSION: 1. Echogenic kidneys typically seen with medical renal disease. Hydronephrosis is not seen on either side. 2. Possible mild stripping renal stones seen bilaterally. 3. Bilateral renal cysts. 4. Impression on the bladder floor from the prostate. Jairo Crowley MD Objective Remarks GENERAL: in NAD CARDIOVASCULAR: Regular rate and rhythm without murmurs, gallops, or rubs. RESPIRATORY: Decreased breath sounds bilaterally. Chest tube in place. No accessory muscle use. GASTROINTESTINAL: Abdomen soft, non-tender, nondistended. MUSCULOSKELETAL: No cyanosis, or edema. BACK: Nontender without obvious deformity. No CVA tenderness. Procedures Left thorascopic exploration for drainage of the loculated pleural effusion, lysis of adhesions, pleural biopsies, talc pleurodesis 01/07/17 Medications and IVs Current Medications Sodium Chloride (NS Flush) 2 ml UNSCH PRN IVF FLUSH AFTER USING IV ACCESS; Start 01/03/17 at 16:30; Stop 01/03/17 at 19:20; Status DC Potassium Chloride (KCl) 40 meq ONCE ONCE PO Last administered on 01/03/17t 18 :07; Start 01/03/17 at 18:00; Stop 01/03/17 at 18:01; Status DC Sodium Chloride (NS Flush) 2 ml UNSCH PRN IV FLUSH FLUSH AFTER USING IV ACCESS ; Start 01/03/17 at 18:45; Stop 01/07/17 at 12:43; Status DC Sodium Chloride (NS Flush) 2 ml BID IV FLUSH Last administered on 01/07/17 08: 48; Start 01/03/17 at 21:00; Stop 01/07/17 at 12:43; Status DC Acetaminophen (Tylenol) 650 mg Q4H PRN PO Fever, headache, pain 1-4 Last administered on 01/05/17 02:24; Start 01/03/17 at 18:45; Stop 01/07/17 at 12:44 ; Status DC Ondansetron HCl (Zofran Inj) 4 mg Q6H PRN IVP NAUSEA OR VOMITING; Start at 18:45; Stop 01/07/17 at 12:46; Status DC Naloxone HCl (Narcan Inj) 0.4 mg UNSCH PRN IV SEE LABEL COMMENTS; Start at 18:45 Senna/Docusate Sodium (Gianna-Colace) 1 tab BID PO Last administered on 08:37; Start 01/03/17 at 21:00 Magnesium Hydroxide (Milk Of Magnesia Liq) 30 ml Q12H PRN PO MILD - MODERATE CONSTIPATION; Start 01/03/17 at 18:45; Stop 01/07/17 at 12:46; Status DC Sennosides (Senokot) 17.2 mg Q12H PRN PO MODERATE - SEVERE CONSTIPATION; Start 01/03/17 at 18:45 Bisacodyl (Dulcolax Supp) 10 mg DAILY PRN RECTAL SEVERE CONSITIPATION; Start at 18:45 Lactulose (Lactulose Liq) 30 ml DAILY PRN PO SEVERE CONSITIPATION; Start at 18:45 Pravastatin Sodium (Pravachol) 20 mg HS PO Last administered on 01/09/17 20:57 ; Start 01/03/17 at 22:00 Metoprolol Tartrate (Lopressor) 50 mg HS PO Last administered on 01/09/17 20: 57; Start 01/03/17 at 22:00 Amlodipine Besylate (Norvasc) 10 mg DAILY PO Last administered on 01/10/17 08: 38; Start 01/04/17 at 09:00 Metoprolol Tartrate (Lopressor) 100 mg AC BREAKFAST PO ; Start 01/04/17 at 07: 00; Stop 01/04/17 at 07:00; Status DC Patient Own Medication 1 ea QID INH AST; Start 01/04/17 at 09:00; Status Hold Metoprolol Tartrate (Lopressor) 100 mg DAILY@08 PO Last administered on 08:37; Start 01/04/17 at 08:00 Potassium Bicarb/ Potassium Chloride (K-Lyte Cl Eff) 25 meq ONCE ONCE PO Last administered on 01/04/17 12:54; Start 01/04/17 at 11:00; Stop 01/04/17 at 11:05; Status DC Potassium Chloride (KCl) 30 meq Q4HR PO Last administered on 01/04/17 16:58; Start 01/04/17 at 12:00; Stop 01/04/17 at 16:01; Status DC Sodium Chloride (NS Flush) 2 ml BID IV FLUSH ; Start 01/04/17 at 21:00; Stop at 21:00; Status DC Sodium Chloride 2 ml 2 ml UNSCH PRN IV FLUSH FLUSH AFTER USING IV ACCESS; Start 01/04/17 at 17:15; Stop 01/04/17 at 17:29; Status DC Cefazolin Sodium 500 mg/Sodium Chloride 505 ml @ 0 mls/hr DIRECTOR IMMUNOLOGY IRRIGATION ; Start 01/04/17 at 17:15; Stop 01/11/17 at 17:14 Cefazolin Sodium/ Dextrose (Ancef 2 Gm Premix) 50 ml @ 150 mls/hr DIRECTOR IMMUNOLOGY IV ; Start 01/04/17 at 17:15; Stop 01/11/17 at 17:14 Chlorhexidine Gluconate (Hibiclens 4% Top Soln) 1 applic DIRECTOR IMMUNOLOGY TOPICAL ; Start 01/04/17 at 17:15; Stop 01/11/17 at 17:14 Potassium Chloride 20 meq 20 meq Q8HR PO Last administered on 01/08/17 06:25; Start 01/06/17 at 15:00; Stop 01/08/17 at 09:58; Status DC Lactated Ringer's 1,000 ml @ 30 mls/hr Q24H PRN IV SEE LABEL COMMENTS; Start at 05:15; Stop 01/10/17 at 05:14; Status DC Sodium Chloride (NS 500 ml Inj) 500 ml @ 30 mls/hr [id number] PRN IV SEE LABEL COMMENTS; Start 01/07/17 at 05:15; Stop 01/09/17 at 16:43; Status DC Povidone Iodine (Betadine 5% Antisepsis Kit) 1 applic DIRECTOR IMMUNOLOGY PRN EACH NARE SEE LABEL COMMENTS; Start 01/07/17 at 05:15; Stop 01/10/17 at 05:14; Status DC Chlorhexidine Gluconate (Chlorhexidine 2% Cloth) 3 pack DIRECTOR IMMUNOLOGY PRN TOPICAL SEE LABEL COMMENTS; Start 01/07/17 at 05:15; Stop 01/10/17 at 05:14; Status DC Insulin Human Regular (NovoLIN R INJ) See Protocol Table ... DIRECTOR IMMUNOLOGY PRN SQ SEE PROTOCOL TABLE; Start 01/07/17 at 05:15; Stop 01/10/17 at 05:14; Status DC Bupivacaine HCl 30 ml 30 ml STK-MED ONCE .ROUTE Last administered on 01/07/17 11:51; Start 01/07/17 at 10:37; Stop 01/07/17 at 10:38; Status DC Cefazolin Sodium/ Dextrose (Ancef 2 Gm Premix) 50 ml @ As Directed STK-MED ONCE .ROUTE Last administered on 01/07/17 11:36; Start 01/07/17 at 10:37; Stop at 10:38; Status DC Talc (Sterile Talc Aerosol 4 Gm) 4 gm STK-MED ONCE I-PLEURAL Last administered on 01/07/17 12:21; Start 01/07/17 at 12:21; Stop 01/07/17 at 12:26; Status DC Albuterol Sulfate (Albuterol Neb) 2.5 mg Q6HR NEB NEB Last administered on 08:27; Start 01/07/17 at 16:00 Albuterol Sulfate (Albuterol Neb) 2.5 mg Q2HR NEB PRN NEB WHEEZING Last administered on 01/10/17 01:01; Start 01/07/17 at 12:45 IV Flush (NS Flush) 2 ml BID IV FLUSH Last administered on 01/10/17 08:38; Start 01/07/17 at 21:00 IV Flush (NS Flush) 2 ml UNSCH PRN IV FLUSH FLUSH AFTER USING IV ACCESS; Start 01/07/17 at 12:45 Miscellaneous Information STAT ONCE OTHER ; Start 01/07/17 at 12:45; Stop at 12:52; Status DC Cefazolin Sodium/ Dextrose (Ancef 1 Gm Premix) 50 ml @ 150 mls/hr Q8H IV ; Start 01/07/17 at 19:00; Stop 01/07/17 at 19:00; Status DC Pantoprazole Sodium (Protonix) 40 mg HS PO Last administered on 01/09/17 20:57 ; Start 01/07/17 at 21:00 Ondansetron HCl (Zofran Inj) 4 mg Q6H PRN IV PUSH NAUSEA OR VOMITING; Start at 12:45 Docusate Calcium (Surfak) 240 mg HS PO Last administered on 01/09/17 20:57; Start 01/07/17 at 21:00 Magnesium Hydroxide (Milk Of Magnesia Liq) 30 ml DAILY PRN PO CONSTIPATION; Start 01/07/17 at 12:45 Acetaminophen (Tylenol) 650 mg Q4H PRN PO TEMPERATURE > 101 F Last administered on 01/07/17 22:17; Start 01/07/17 at 12:45 Insulin Aspart (NovoLOG SUPPLEMENTAL SCALE) Q6HR SQ ; Start 01/07/17 at 18:00 Miscellaneous Information 1 ONCE ONCE OTHER ; Start 01/07/17 at 12:45; Stop at 12:50; Status DC Dextrose (D50w (Vial) Inj) 50 ml UNSCH PRN IV HYPOGLYCEMIA-SEE COMMENTS; Start 01/07/17 at 12:45 Glucagon (Glucagon Inj) 1 mg UNSCH PRN IV HYPOGLYCEMIA-SEE COMMENTS; Start at 12:45 Oxycodone/ Acetaminophen (Percocet 5-325 Mg) 1 tab Q3H PRN PO PAIN SCALE 3 TO 5 Last administered on 01/10/17 11:21; Start 01/07/17 at 12:45 Oxycodone/ Acetaminophen (Percocet 5-325 Mg) 2 tab Q3H PRN PO PAIN SCALE 6 TO 10 Last administered on 01/10/17 00:55; Start 01/07/17 at 12:45 Fentanyl Citrate (fentaNYL INJ) 250 mcg STK-MED ONCE .ROUTE ; Start 01/07/17 at 13:12; Stop 01/07/17 at 13:13; Status DC Miscellaneous Information ALL NURSING DEPARTME... UNSCH PRN .XX SEE LABEL COMMENTS; Start 01/07/17 at 13:00; Stop 01/08/17 at 12:59; Status DC Morphine Sulfate 8 mg 8 mg STK-MED ONCE .ROUTE Last administered on 01/07/17 13:53; Start 01/07/17 at 13:53; Stop 01/07/17 at 13:54; Status DC Cefazolin Sodium/ Sodium Chloride (Ancef Inj/NS Inj) 100 ml @ 200 mls/hr Q8H IV Last administered on 01/08/17 10:30; Start 01/07/17 at 18:00; Stop at 10:29; Status DC Potassium Bicarb/ Potassium Chloride 25 meq 25 meq ONCE ONCE PO ; Start at 17:45; Stop 01/07/17 at 17:46; Status DC Sodium Chloride (1/2 NS 1000 ml Inj) 1,000 ml @ 100 mls/hr Q10H IV Last administered on 01/09/17 19:00; Start 01/09/17 at 09:00; Stop 01/10/17 at 04:59 ; Status DC Potassium Chloride (KCl) 40 meq ONCE ONCE PO Last administered on 01/09/17 10 :03; Start 01/09/17 at 09:00; Stop 01/09/17 at 09:02; Status DC A/P Problem List: (1) Pleural effusion ICD Code: J90 Status: Acute (2) Hypoxia ICD Code: R09.02 Status: Acute (3) Hypokalemia ICD Code: E87.6 Status: Acute Assessment and Plan Mr. Austin 76 year old male patient with hypoxia and recurrent/persistent pleural effusion. Patient underwent thoracentesis 6 weeks ago in [place] as well as an other thoracentesis about a week ago at [facility]. Cytology was negative in the previous study. On arrival patient's oxygen saturation was 84% on room air which improved to 93 - 96 % on 2 L oxygen via nasal cannula. Off note patient has a history of 30 years smoking but he quit about 37 years ago. Acute respiratory failure/ Left-sided pleural effusion CT thorax/chest shows loculated pleural effusions with pleural masses. Pulmonology ad CT surgery consults appreciated. Status post left thorascopic exploration for drainage of the loculated pleural effusion, lysis of adhesions, pleural biopsies, talc pleurodesis 01/07/17. - oxygen and nebs as needed. - follow cultures and pathology. - follow up with pulmonology. - chest tube per cardiothoracic surgery. -CT scan of chest will be repeated today per cardiothoracic surgeon. Repeated chest x-ray showed increased left-sided pleural effusion that was done today. Acute renal failure -Improved with IV fluids. Good urine output. -Renal ultrasound shows medical renal disease. There is no obstruction shown. -Most likely secondary to hypoperfusion. -Continue to monitor. -Avoid nephrotoxins. -Strict ins and outs. - Weight loss The patient endorses a recent 30 pound weight loss. Possibly secondary to lung malignancy which is being worked up. - TSH within normal limits. Hemoglobin A1c 5.7. LFTs within normal limits. - Follow pathology. - Outpatient follow-up. Hypokalemia The patient says he always has low potassium. - replete and monitor. Hyperglycemia Glucose level slightly elevated. He was told he has borderline diabetes. - ISS. - Hemoglobin A1c 5.7. Full code. SCDs. Discharge Planning Patient requires continued hospitalization due to pleural effusion status post chest tube placement/management pending cytology report. Gloria Roy MD Jan 10, 2017 12:18
--- NOTE | 2017-01-10 15:16 | RADRPT ---
EXAM DATE/TIME: 01/10/2017 13:41 [facility] COMPARISON: CHEST PA & LAT, January 10, 2017, 5:08. CT THORAX W/O CONTRAST, January 04, 2017, 14:53. INDICATIONS : Shortness of breath with non productive cough RADIATION DOSE: 9.76 CTDIvol (mGy) MEDICAL HISTORY : Hypertension. Carcinoma, squamous cell. SURGICAL HISTORY : cardiac catherization ENCOUNTER: Subsequent ACUITY: 3 days PAIN SCALE: 0/10 LOCATION: chest TECHNIQUE: Volumetric scanning of the chest was performed. Using automated exposure control and adjustment of t he mA and/or kV according to patient size, radiation dose was kept as low as reasonably achievable to obtain optimal diagnostic quality images. DICOM format image data is available electronically for r eview and comparison. FINDINGS: LUNGS: Since the last CT examination, there is been left chest surgery with placement of a couple of thoraco stomy tubes one situated in the anterior left apex and one situated in the posterior left base. There has been evacuation of loculated effusion with exception of a oblong loculated collection in the pos terior left mid to upper chest which measures about 10 cm in maximum sagittal dimension. This collect ion is notable for thin developing peripheral hyperdensity which may be developing calcification. The re is adjacent compressive atelectasis. Elsewhere, there is mild alveolar consolidation and some cavi tation in the left lung base and a small volume of dependent free pleural fluid. Contralateral right lung is stable with occasional areas of reticular parenchymal scarring and baseline severe emphysema. PLEURAE: See above MEDIASTINUM: Stable central mediastinal [place] enlargement. AXILLAE: Within normal limits. No lymphadenopathy. MUSCULOSKELETAL: Within normal limits for patient age. MISCELLANEOUS: The visualized upper abdominal organs demonstrate no acute abnormality. CONCLUSION: Normal left chest surgery with thoracostomy tubes in place. There is a single dominant residual locul ated pleural fluid collection posteriorly in the left mid to upper chest. Basilar consolidation with some degree of cavitary change. Minimal non-loculated basilar pleural fluid Jairo Mosley MD on January 10, 2017 at 14:56 Board Certified Radiologist. This report was verified electronically.
[2017-01-10] MEDS: DOCUSATE CALCIUM 240 MG CAP PO SCH (21:04)
[2017-01-10] MEDS: METOPROLOL TARTRATE 50 MG TAB PO SCH (21:05)
[2017-01-10] MEDS: PANTOPRAZOLE SOD 40 MG DELAYED RELEASE TAB PO SCH (21:05)
[2017-01-10] MEDS: PRAVASTATIN SOD 20 MG TAB PO SCH (21:05)
[2017-01-11] VITALS (28 sets, daily range): BP systolic 124–156; BP diastolic 71–89; PULSE 64–103; RESP 18–20; TEMP 97.5–98.7; O2SAT 91–96
[2017-01-11] MEDS: oxyCODONE/ACETAMINOPHEN 5 MG/325 MG TAB PO PRN ×5 (00:54→21:13)
[2017-01-11] MEDS: RESP: ALBUTEROL 2.5 MG/3 ML NEB (SCH) NEB ×2 (04:11→09:25)
[2017-01-11] MEDS: INSULIN ASPART SUPPLEMENTAL SCALE SQ SCH ×2 (06:00)
[2017-01-11 07:54] LABS: BICARBONATE 28.1 MEQ/L (21.0-32.0); MAGNESIUM 1.9 MG/DL (1.5-2.5); POTASSIUM 3.7 MEQ/L (3.5-5.1)
--- NOTE | 2017-01-11 08:01 | PD.CAR.PN ---
CVT Progress Note CVT: POD #: 4 Subjective/Hospital Course: c/o pain related to chest tubes 01/09/17 Creatinine up. Patient has no complaints. Weight is down quite a bit since admission. 01/10/17 no complaints today renal function improving continues on 4 liters NC 01/11/17 no complaints Still on 4 liters NC Objective: Vital Signs Date Time Temp Pulse Resp B/P Pulse Ox O2 Delivery O2 Flow Rate FiO2 01/11/17 05:00 92 01/11/17 04:13 92 Nasal Cannula 4.00 01/11/17 04:06 93 Nasal Cannula 4.00 01/11/17 04:00 89 01/11/17 04:00 97.9 88 18 129/71 93 01/11/17 03:00 92 01/11/17 02:00 96 01/11/17 01:00 97 01/11/17 00:05 93 Nasal Cannula 4.00 01/11/17 00:00 98.7 103 18 156/87 91 01/11/17 00:00 98 01/10/17 23:00 96 01/10/17 22:00 96 01/10/17 21:34 92 Nasal Cannula 4.00 01/10/17 21:00 92 01/10/17 20:00 97.9 94 18 133/73 93 01/10/17 20:00 94 01/10/17 19:50 93 Nasal Cannula 4.00 01/10/17 19:00 96 01/10/17 18:00 91 01/10/17 17:00 85 01/10/17 16:07 98.7 91 22 127/74 92 01/10/17 16:00 84 01/10/17 15:00 92 Nasal Cannula 4.00 01/10/17 15:00 82 01/10/17 14:00 86 01/10/17 13:00 82 01/10/17 12:00 88 01/10/17 11:11 91 Nasal Cannula 4.00 01/10/17 11:09 97.9 88 22 116/78 91 01/10/17 11:00 82 01/10/17 10:00 84 01/10/17 09:00 88 01/10/17 08:50 94 Nasal Cannula 4.00 01/10/17 08:42 84 22 129/83 94 01/10/17 08:33 94 Nasal Cannula 4.00 01/10/17 08:33 94 Nasal Cannula 4.00 01/10/17 08:29 95 Nasal Cannula 4.00 01/10/17 08:00 84 Labs: Laboratory Tests Test 01/11/17 06:04 Sodium Level 140 MEQ/L (136-145) Potassium Level 3.7 MEQ/L (3.5-5.1) Chloride Level 105 MEQ/L (98-107) Carbon Dioxide Level 28.1 MEQ/L (21.0-32.0) Anion Gap 7 MEQ/L (5-15) Blood Urea Nitrogen 20 MG/DL (7-18) Creatinine 1.44 MG/DL (0.60-1.30) Estimat Glomerular Filtration 48 ML/MIN (>89) Rate Random Glucose 102 MG/DL (74-106) Calcium Level 8.8 MG/DL (8.5-10.1) Magnesium Level 1.9 MG/DL (1.5-2.5) Result Diagram: 01/10/17 0556 01/11/17 0604 Imaging: Last Impressions Chest X-Ray 01/10/17 0600 Signed Impressions: Service Date/Time: Tuesday, January 10, 2017 05:08 - CONCLUSION: Increasing size left pleural effusion. Manjit Maharaj MD Chest CT 01/10/17 0000 Signed Impressions: Service Date/Time: Tuesday, January 10, 2017 13:41 - CONCLUSION: Normal left chest surgery with thoracostomy tubes in place. There is a single dominant residual loculated pleural fluid collection posteriorly in the left mid to upper chest. Basilar consolidation with some degree of cavitary change. Minimal non- loculated basilar pleural fluid Jairo Mosley MD Renal Ultrasound 01/09/17 0000 Signed Impressions: Service Date/Time: Monday, January 09, 2017 13:36 - CONCLUSION: 1. Echogenic kidneys typically seen with medical renal disease. Hydronephrosis is not seen on either side. 2. Possible mild stripping renal stones seen bilaterally. 3. Bilateral renal cysts. 4. Impression on the bladder floor from the prostate. Jairo Crowley MD Cardiovascular: RRR Pulmonary: Decreased BS on left GI/: NABS Incision: dry and intact CT: 160ml/24 hrs No air leak Plan: CT scan from 01/10 shows single loculated fluid collection. Will request IR to consider CT guided drainage/drain placement Will d/c chest tubes pending IR procedure Wean oxygen PATH pending Encourage ambulation, up to chair Yola Crouch MD Jan 11, 2017 08:01
[2017-01-11] MEDS: SODIUM CHLORIDE 0.9% FLUSH 5 ML FLUSH IV FLUSH SCH ×2 (08:49→21:00)
[2017-01-11] MEDS: METOPROLOL TARTRATE 100 MG TAB PO SCH (08:49)
[2017-01-11] MEDS: DOCUSATE SODIUM 50 MG/SENNA 8.6 MG TAB PO SCH ×2 (08:50→21:08)
[2017-01-11] MEDS ORDERED: BISACODYL 10 MG SUPP RECTAL ONE (12:15)
--- NOTE | 2017-01-11 13:46 | HHI.PR ---
Subjective Remarks Follow-up for respiratory failure Patient said he is feeling better. Denies shortness of breathing or cough. His nurses at the bedside. She stated that he hasn't had a bowel movement since the . No other complaints. Patient remains afebrile. Objective Vitals Vital Signs Date Time Temp Pulse Resp B/P Pulse Ox O2 Delivery O2 Flow Rate FiO2 01/11/17 13:00 86 01/11/17 11:44 98.7 86 20 124/76 95 01/11/17 11:00 88 01/11/17 11:00 95 Nasal Cannula 2.50 01/11/17 10:00 86 01/11/17 09:27 96 Nasal Cannula 3.00 01/11/17 09:00 90 01/11/17 08:00 100 01/11/17 08:00 98.3 100 20 143/81 95 01/11/17 07:00 95 Nasal Cannula 3.00 01/11/17 07:00 92 01/11/17 05:00 92 01/11/17 04:13 92 Nasal Cannula 4.00 01/11/17 04:06 93 Nasal Cannula 4.00 01/11/17 04:00 89 01/11/17 04:00 97.9 88 18 129/71 93 01/11/17 03:00 92 01/11/17 02:00 96 01/11/17 01:00 97 01/11/17 00:05 93 Nasal Cannula 4.00 01/11/17 00:00 98.7 103 18 156/87 91 01/11/17 00:00 98 01/10/17 23:00 96 01/10/17 22:00 96 01/10/17 21:34 92 Nasal Cannula 4.00 01/10/17 21:00 92 01/10/17 20:00 97.9 94 18 133/73 93 01/10/17 20:00 94 01/10/17 19:50 93 Nasal Cannula 4.00 01/10/17 19:00 96 01/10/17 18:00 91 01/10/17 17:00 85 01/10/17 16:07 98.7 91 22 127/74 92 01/10/17 16:00 84 01/10/17 15:00 92 Nasal Cannula 4.00 01/10/17 15:00 82 01/10/17 14:00 86 I/O 01/10/17 01/10/17 01/10/17 01/11/17 01/11/17 01/11/17 07:00 15:00 23:00 07:00 15:00 23:00 Intake Total 1440 ml 720 ml 240 ml Output Total 650 ml 1125 ml 860 ml Balance 790 ml -405 ml -620 ml Intake Oral 240 ml 720 ml 240 ml IV Total 1200 ml Output Urine Total 600 ml 975 ml 850 ml Chest Tube Drainage Total 50 ml 150 ml 10 ml # Bowel Movements 0 Result Diagram: 01/10/17 0556 01/11/17 0604 Imaging Last Impressions Chest X-Ray 01/10/17 0600 Signed Impressions: Service Date/Time: Tuesday, January 10, 2017 05:08 - CONCLUSION: Increasing size left pleural effusion. Manjit Maharaj MD Chest CT 01/10/17 0000 Signed Impressions: Service Date/Time: Tuesday, January 10, 2017 13:41 - CONCLUSION: Normal left chest surgery with thoracostomy tubes in place. There is a single dominant residual loculated pleural fluid collection posteriorly in the left mid to upper chest. Basilar consolidation with some degree of cavitary change. Minimal non- loculated basilar pleural fluid Jairo Mosley MD Renal Ultrasound 01/09/17 0000 Signed Impressions: Service Date/Time: Monday, January 09, 2017 13:36 - CONCLUSION: 1. Echogenic kidneys typically seen with medical renal disease. Hydronephrosis is not seen on either side. 2. Possible mild stripping renal stones seen bilaterally. 3. Bilateral renal cysts. 4. Impression on the bladder floor from the prostate. Jairo Crowley MD Objective Remarks GENERAL: in NAD CARDIOVASCULAR: Regular rate and rhythm without murmurs, gallops, or rubs. RESPIRATORY: Decreased breath sounds on the left basilar area. No rhonchi or wheezing noted. Chest tube in place. No accessory muscle use. GASTROINTESTINAL: Abdomen soft, non-tender, nondistended. MUSCULOSKELETAL: No cyanosis, or edema. BACK: Nontender without obvious deformity. No CVA tenderness. Procedures Left thorascopic exploration for drainage of the loculated pleural effusion, lysis of adhesions, pleural biopsies, talc pleurodesis 01/07/17 Medications and IVs Current Medications Sodium Chloride (NS Flush) 2 ml UNSCH PRN IVF FLUSH AFTER USING IV ACCESS; Start 01/03/17 at 16:30; Stop 01/03/17 at 19:20; Status DC Potassium Chloride (KCl) 40 meq ONCE ONCE PO Last administered on 01/03/17 18 :07; Start 01/03/17 at 18:00; Stop 01/03/17 at 18:01; Status DC Sodium Chloride (NS Flush) 2 ml UNSCH PRN IV FLUSH FLUSH AFTER USING IV ACCESS ; Start 01/03/17 at 18:45; Stop 01/07/17 at 12:43; Status DC Sodium Chloride (NS Flush) 2 ml BID IV FLUSH Last administered on 01/07/17 08: 48; Start 01/03/17 at 21:00; Stop 01/07/17 at 12:43; Status DC Acetaminophen (Tylenol) 650 mg Q4H PRN PO Fever, headache, pain 1-4 Last administered on 01/05/17 02:24; Start 01/03/17 at 18:45; Stop 01/07/17 at 12:44 ; Status DC Ondansetron HCl (Zofran Inj) 4 mg Q6H PRN IVP NAUSEA OR VOMITING; Start at 18:45; Stop 01/07/17 at 12:46; Status DC Naloxone HCl (Narcan Inj) 0.4 mg UNSCH PRN IV SEE LABEL COMMENTS; Start at 18:45 Senna/Docusate Sodium (Gianna-Colace) 1 tab BID PO Last administered on 08:50; Start 01/03/17 at 21:00 Magnesium Hydroxide (Milk Of Magnesia Liq) 30 ml Q12H PRN PO MILD - MODERATE CONSTIPATION; Start 01/03/17 at 18:45; Stop 01/07/17 at 12:46; Status DC Sennosides (Senokot) 17.2 mg Q12H PRN PO MODERATE - SEVERE CONSTIPATION; Start 01/03/17 at 18:45 Bisacodyl (Dulcolax Supp) 10 mg DAILY PRN RECTAL SEVERE CONSITIPATION; Start at 18:45 Lactulose (Lactulose Liq) 30 ml DAILY PRN PO SEVERE CONSITIPATION; Start at 18:45 Pravastatin Sodium (Pravachol) 20 mg HS PO Last administered on 01/10/17 21:05 ; Start 01/03/17 at 22:00 Metoprolol Tartrate (Lopressor) 50 mg HS PO Last administered on 01/10/17 21: 05; Start 01/03/17 at 22:00 Amlodipine Besylate (Norvasc) 10 mg DAILY PO Last administered on 01/11/17 08: 49; Start 01/04/17 at 09:00 Metoprolol Tartrate (Lopressor) 100 mg AC BREAKFAST PO ; Start 01/04/17 at 07: 00; Stop 01/04/17 at 07:00; Status DC Patient Own Medication 1 ea QID INH AST; Start 01/04/17 at 09:00; Status Hold Metoprolol Tartrate (Lopressor) 100 mg DAILY@08 PO Last administered on 08:49; Start 01/04/17 at 08:00 Potassium Bicarb/ Potassium Chloride (K-Lyte Cl Eff) 25 meq ONCE ONCE PO Last administered on 01/04/17 12:54; Start 01/04/17 at 11:00; Stop 01/04/17 at 11:05; Status DC Potassium Chloride (KCl) 30 meq Q4HR PO Last administered on 01/04/17 16:58; Start 01/04/17 at 12:00; Stop 01/04/17 at 16:01; Status DC Sodium Chloride (NS Flush) 2 ml BID IV FLUSH ; Start 01/04/17 at 21:00; Stop at 21:00; Status DC Sodium Chloride 2 ml 2 ml UNSCH PRN IV FLUSH FLUSH AFTER USING IV ACCESS; Start 01/04/17 at 17:15; Stop 01/04/17 at 17:29; Status DC Cefazolin Sodium 500 mg/Sodium Chloride 505 ml @ 0 mls/hr DEVELOPMENTAL MATHEMATICS PROFESSOR IRRIGATION ; Start 01/04/17 at 17:15; Stop 01/11/17 at 17:14 Cefazolin Sodium/ Dextrose (Ancef 2 Gm Premix) 50 ml @ 150 mls/hr DEVELOPMENTAL MATHEMATICS PROFESSOR IV ; Start 01/04/17 at 17:15; Stop 01/11/17 at 17:14 Chlorhexidine Gluconate (Hibiclens 4% Top Soln) 1 applic DEVELOPMENTAL MATHEMATICS PROFESSOR TOPICAL ; Start 01/04/17 at 17:15; Stop 01/11/17 at 17:14 Potassium Chloride 20 meq 20 meq Q8HR PO Last administered on 01/08/17 06:25; Start 01/06/17 at 15:00; Stop 01/08/17 at 09:58; Status DC Lactated Ringer's 1,000 ml @ 30 mls/hr Q24H PRN IV SEE LABEL COMMENTS; Start at 05:15; Stop 01/10/17 at 05:14; Status DC Sodium Chloride (NS 500 ml Inj) 500 ml @ 30 mls/hr [id number] PRN IV SEE LABEL COMMENTS; Start 01/07/17 at 05:15; Stop 01/09/17 at 16:43; Status DC Povidone Iodine (Betadine 5% Antisepsis Kit) 1 applic DEVELOPMENTAL MATHEMATICS PROFESSOR PRN EACH NARE SEE LABEL COMMENTS; Start 01/07/17 at 05:15; Stop 01/10/17 at 05:14; Status DC Chlorhexidine Gluconate (Chlorhexidine 2% Cloth) 3 pack DEVELOPMENTAL MATHEMATICS PROFESSOR PRN TOPICAL SEE LABEL COMMENTS; Start 01/07/17 at 05:15; Stop 01/10/17 at 05:14; Status DC Insulin Human Regular (NovoLIN R INJ) See Protocol Table ... DEVELOPMENTAL MATHEMATICS PROFESSOR PRN SQ SEE PROTOCOL TABLE; Start 01/07/17 at 05:15; Stop 01/10/17 at 05:14; Status DC Bupivacaine HCl 30 ml 30 ml STK-MED ONCE .ROUTE Last administered on 01/07/17 11:51; Start 01/07/17 at 10:37; Stop 01/07/17 at 10:38; Status DC Cefazolin Sodium/ Dextrose (Ancef 2 Gm Premix) 50 ml @ As Directed STK-MED ONCE .ROUTE Last administered on 01/07/17 11:36; Start 01/07/17 at 10:37; Stop at 10:38; Status DC Talc (Sterile Talc Aerosol 4 Gm) 4 gm STK-MED ONCE I-PLEURAL Last administered on 01/07/17 12:21; Start 01/07/17 at 12:21; Stop 01/07/17 at 12:26; Status DC Albuterol Sulfate (Albuterol Neb) 2.5 mg Q6HR NEB NEB Last administered on 09:25; Start 01/07/17 at 16:00 Albuterol Sulfate (Albuterol Neb) 2.5 mg Q2HR NEB PRN NEB WHEEZING Last administered on 01/10/17 01:01; Start 01/07/17 at 12:45 IV Flush (NS Flush) 2 ml BID IV FLUSH Last administered on 01/11/17 08:49; Start 01/07/17 at 21:00 IV Flush (NS Flush) 2 ml UNSCH PRN IV FLUSH FLUSH AFTER USING IV ACCESS; Start 01/07/17 at 12:45 Miscellaneous Information STAT ONCE OTHER ; Start 01/07/17 at 12:45; Stop at 12:52; Status DC Cefazolin Sodium/ Dextrose (Ancef 1 Gm Premix) 50 ml @ 150 mls/hr Q8H IV ; Start 01/07/17 at 19:00; Stop 01/07/17 at 19:00; Status DC Pantoprazole Sodium (Protonix) 40 mg HS PO Last administered on 01/10/17 21:05 ; Start 01/07/17 at 21:00 Ondansetron HCl (Zofran Inj) 4 mg Q6H PRN IV PUSH NAUSEA OR VOMITING; Start at 12:45 Docusate Calcium (Surfak) 240 mg HS PO Last administered on 01/10/17 21:04; Start 01/07/17 at 21:00 Magnesium Hydroxide (Milk Of Magnesia Liq) 30 ml DAILY PRN PO CONSTIPATION; Start 01/07/17 at 12:45 Acetaminophen (Tylenol) 650 mg Q4H PRN PO TEMPERATURE > 101 F Last administered on 01/07/17 22:17; Start 01/07/17 at 12:45 Insulin Aspart (NovoLOG SUPPLEMENTAL SCALE) Q6HR SQ ; Start 01/07/17 at 18:00; Stop 01/11/17 at 07:59; Status DC Miscellaneous Information 1 ONCE ONCE OTHER ; Start 01/07/17 at 12:45; Stop at 12:50; Status DC Dextrose (D50w (Vial) Inj) 50 ml UNSCH PRN IV HYPOGLYCEMIA-SEE COMMENTS; Start 01/07/17 at 12:45; Stop 01/11/17 at 07:59; Status DC Glucagon (Glucagon Inj) 1 mg UNSCH PRN IV HYPOGLYCEMIA-SEE COMMENTS; Start at 12:45 Oxycodone/ Acetaminophen (Percocet 5-325 Mg) 1 tab Q3H PRN PO PAIN SCALE 3 TO 5 Last administered on 01/11/17 12:20; Start 01/07/17 at 12:45 Oxycodone/ Acetaminophen (Percocet 5-325 Mg) 2 tab Q3H PRN PO PAIN SCALE 6 TO 10 Last administered on 01/10/17 00:55; Start 01/07/17 at 12:45 Fentanyl Citrate (fentaNYL INJ) 250 mcg STK-MED ONCE .ROUTE ; Start 01/07/17 at 13:12; Stop 01/07/17 at 13:13; Status DC Miscellaneous Information ALL NURSING DEPARTME... UNSCH PRN .XX SEE LABEL COMMENTS; Start 01/07/17 at 13:00; Stop 01/08/17 at 12:59; Status DC Morphine Sulfate 8 mg 8 mg STK-MED ONCE .ROUTE Last administered on 01/07/17 13:53; Start 01/07/17 at 13:53; Stop 01/07/17 at 13:54; Status DC Cefazolin Sodium/ Sodium Chloride (Ancef Inj/NS Inj) 100 ml @ 200 mls/hr Q8H IV Last administered on 01/08/17 10:30; Start 01/07/17 at 18:00; Stop at 10:29; Status DC Potassium Bicarb/ Potassium Chloride 25 meq 25 meq ONCE ONCE PO ; Start at 17:45; Stop 01/07/17 at 17:46; Status DC Sodium Chloride (1/2 NS 1000 ml Inj) 1,000 ml @ 100 mls/hr Q10H IV Last administered on 01/09/17 19:00; Start 01/09/17 at 09:00; Stop 01/10/17 at 04:59 ; Status DC Potassium Chloride (KCl) 40 meq ONCE ONCE PO Last administered on 01/09/17 10 :03; Start 01/09/17 at 09:00; Stop 01/09/17 at 09:02; Status DC Bisacodyl (Dulcolax Supp) 10 mg ONCE ONCE RECTAL ; Start 01/11/17 at 12:15; Stop 01/11/17 at 13:01; Status DC A/P Problem List: (1) Pleural effusion ICD Code: J90 Status: Acute (2) Hypoxia ICD Code: R09.02 Status: Acute (3) Hypokalemia ICD Code: E87.6 Status: Acute Assessment and Plan Mr. Austin 76 year old male patient with hypoxia and recurrent/persistent pleural effusion. Patient underwent thoracentesis 6 weeks ago in [place] as well as an other thoracentesis about a week ago at [place]. Cytology was negative in the previous study. On arrival patient's oxygen saturation was 84% on room air which improved to 93 - 96 % on 2 L oxygen via nasal cannula. Off note patient has a history of 30 years smoking but he quit about 37 years ago. Acute respiratory failure/ Left-sided pleural effusion CT thorax/chest shows loculated pleural effusions with pleural masses. Pulmonology ad CT surgery consults appreciated. Status post left thorascopic exploration for drainage of the loculated pleural effusion, lysis of adhesions, pleural biopsies, talc pleurodesis 01/07/17. - oxygen and nebs as needed. - follow cultures and pathology. - follow up with pulmonology. - chest tube per cardiothoracic surgery. -Repeat CT of the chest showed a single dominant residual loculated pleural fluid collection posteriorly in the left mid to upper chest. Basilar consolidation with some degree of cavitary change. Minimal non-loculated basilar pleural fluid. -Cardiac thoracic surgeon order IR to aspirate fluid. Acute renal failure -Improved with IV fluids. Good urine output. -Renal ultrasound shows medical renal disease. There is no obstruction shown. -Most likely secondary to hypoperfusion. -Continue to monitor. -Avoid nephrotoxins. -Strict ins and outs. Weight loss The patient endorses a recent 30 pound weight loss. Possibly secondary to lung malignancy which is being worked up. - TSH within normal limits. Hemoglobin A1c 5.7. LFTs within normal limits. - Follow pathology. - Outpatient follow-up. Hypokalemia The patient says he always has low potassium. - replete and monitor. Hyperglycemia Glucose level slightly elevated. He was told he has borderline diabetes. - ISS. - Hemoglobin A1c 5.7. Full code. SCDs. Discharge Planning Patient requires continued hospitalization due to pleural effusion status post chest tube placement/management pending cytology report. Gloria Roy MD Jan 11, 2017 13:46
[2017-01-11] MEDS ORDERED: SODIUM BICARBONATE 8.4% INJ 50 ML ONE (14:45)
[2017-01-11] MEDS ORDERED: LIDOCAINE 1%/EPINEPHrine 1:100,000 SOLN 20 ML VIAL ONE (14:45)
[2017-01-11] MEDS ORDERED: fentaNYL CITRATE 250 MCG/5 ML AMP ONE (15:14)
[2017-01-11] MEDS ORDERED: MIDAZOLAM HCL 5 MG/5 ML VIAL ONE (15:14)
--- NOTE | 2017-01-11 16:41 | RADRPT ---
EXAM DATE/TIME: 01/11/2017 15:32 INDICATIONS : Left loculated pleural effusion. SEDATION TIME: 30 minutes MEDICATION(S): 1.) 1 mg midazolam (Versed) IV 2.) 50 mcg fentanyl (Sublimaze) IV DEVICE(S): 1.) 8 Fr Jenny FLUID: Total volume of 110 cc of bloody fluid was removed. Fluid was sent for laboratory ordered studies. MEDICAL HISTORY : Cardiovascular disease. Hypertension. SURGICAL HISTORY : Chest tubes ENCOUNTER: Initial ACUITY: 1 day PAIN SCORE: 0/10 LOCATION: Left chest PROCEDURE: 1.) Conscious sedation with continuous EKG and oximetry monitoring. PROCEDURE : 1. CT guided chest tube placement. 2. Conscious sedation with continuous EKG and oximetry monitoring. The risks, benefits and alternatives to the procedure were explained and verbal and written consent w as obtained. The site was prepped in sterile fashion. Full sterile technique was used, including ca p, mask, sterile gloves and gown and a large sterile sheet. Hand hygiene and 2% chlorhexidine and/or betadine/alcohol prep was utilized per protocol for cutaneous antisepsis. The skin and subcutaneous tissues were infiltrated with local anesthetic solution. Using automated exposure control and adjus tment of the mA and/or kV according to patient size, radiation dose was kept as low as reasonably ach ievable to obtain optimal diagnostic quality images. DICOM format image data is available electronic ally for review and comparison. With CT guidance the chest was punctured and the prescribed catheter was placed in the lung apex. Wal l suction was applied. Post procedure images demonstrate satisfactory position of the tube. The cat heter was sutured in place and a Percu-Stay was applied. Conscious sedation was performed with the prescribed dosages and duration as above. The patient adelso ated the procedure well and there were no complications. EKG and oximetry remained stable throughout the procedure. The patient was sent to post anesthesia recovery in stable condition. CONCLUSION: Uncomplicated 8 [place] nonlocking pigtail chest tube placement as above. Kelvin Olmstead MD on January 11, 2017 at 16:37 Board Certified Radiologist. This report was verified electronically.
--- NOTE | 2017-01-11 16:42 | RADRPT ---
EXAM DATE/TIME: 01/11/2017 16:09 [facility] COMPARISON: CHEST SINGLE AP, January 09, 2017, 5:21. CHEST EXPIRATION ONLY, December 21, 2016, 10:32. INDICATIONS : Left posterior chest tube placement. MEDICAL HISTORY : Hypertension. Carcinoma, squamous cell. SURGICAL HISTORY : None. ENCOUNTER: Initial ACUITY: 1 week PAIN SCORE: 0/10 LOCATION: Left posterior chest FINDINGS: A small left-sided chest tube has been placed. There is no pneumothorax status post placement. Two l arge chest tubes are also noted within the left hemithorax. Scattered atelectasis and/or infiltrates are unchanged. CONCLUSION: 1. No pneumothorax status post placement of left chest tube. 2. Two large chest tubes are stable compared to previous examination. 3. Scattered infiltrates and/or atelectasis are stable. Kelvin Olmstead MD on January 11, 2017 at 16:35 Board Certified Radiologist. This report was verified electronically.
[2017-01-11] MEDS: METOPROLOL TARTRATE 50 MG TAB PO SCH (21:08)
[2017-01-11] MEDS: DOCUSATE CALCIUM 240 MG CAP PO SCH (21:09)
[2017-01-11] MEDS: PANTOPRAZOLE SOD 40 MG DELAYED RELEASE TAB PO SCH (21:09)
[2017-01-11] MEDS: PRAVASTATIN SOD 20 MG TAB PO SCH (21:09)
[2017-01-12] VITALS (26 sets, daily range): BP systolic 122–146; BP diastolic 73–86; PULSE 70–94; RESP 18–20; TEMP 97.3–98.3; O2SAT 92–96
[2017-01-12] MEDS: oxyCODONE/ACETAMINOPHEN 5 MG/325 MG TAB PO PRN ×5 (05:58→18:35)
--- NOTE | 2017-01-12 08:58 | HHI.PR ---
Subjective Remarks Follow-up for chest tube management and pleural effusion Patient stated that her breathing has improved and cough has improved. Patient is very anxious to go home today. He remains afebrile. Objective Vitals Vital Signs Date Time Temp Pulse Resp B/P Pulse Ox O2 Delivery O2 Flow Rate FiO2 01/12/17 07:00 93 Nasal Cannula 3.00 01/12/17 07:00 88 01/12/17 07:00 97.6 94 20 146/83 93 01/12/17 06:00 90 01/12/17 05:00 89 01/12/17 04:00 86 01/12/17 03:00 92 Nasal Cannula 3.00 01/12/17 03:00 88 01/12/17 03:00 97.7 88 18 139/81 92 01/12/17 02:00 88 01/12/17 01:00 92 01/12/17 00:00 94 01/11/17 23:30 93 Nasal Cannula 3.00 01/11/17 23:30 97.9 98 18 151/85 93 01/11/17 23:00 95 01/11/17 22:00 98 01/11/17 21:00 94 01/11/17 20:00 98.1 96 18 143/84 95 01/11/17 20:00 95 Nasal Cannula 3.00 01/11/17 20:00 98 01/11/17 19:00 98 01/11/17 18:04 76 01/11/17 17:36 92 Nasal Cannula 3.00 01/11/17 17:00 74 01/11/17 17:00 92 Nasal Cannula 3.00 01/11/17 16:42 97.5 99 20 154/89 92 01/11/17 16:00 76 01/11/17 15:00 64 01/11/17 14:02 88 01/11/17 13:00 86 01/11/17 11:44 98.7 86 20 124/76 95 01/11/17 11:00 88 01/11/17 11:00 95 Nasal Cannula 2.50 01/11/17 10:00 86 01/11/17 09:27 96 Nasal Cannula 3.00 01/11/17 09:00 90 I/O 01/11/17 01/11/17 01/11/17 01/12/17 01/12/17 01/12/17 07:00 15:00 23:00 07:00 15:00 23:00 Intake Total 240 ml 720 ml 240 ml Output Total 860 ml 1435 ml 950 ml Balance -620 ml -715 ml -710 ml Intake Oral 240 ml 720 ml 240 ml Output Urine Total 850 ml 1325 ml 900 ml Chest Tube Drainage Total 10 ml 110 ml 50 ml # Bowel Movements 0 Result Diagram: 01/10/17 0556 01/11/17 0604 Imaging Last Impressions Chest X-Ray 01/11/17 1613 Signed Impressions: Service Date/Time: Wednesday, January 11, 2017 16:09 - CONCLUSION: 1. No pneumothorax status post placement of left chest tube. 2. Two large chest tubes are stable compared to previous examination. 3. Scattered infiltrates and/or atelectasis are stable. Kelvin Olmstead MD Chest Tube Insertion 01/11/17 0000 Signed Impressions: Service Date/Time: Wednesday, January 11, 2017 15:32 - CONCLUSION: Uncomplicated 8 Syrian nonlocking pigtail chest tube placement as above. Kelvin Olmstead MD Chest CT 01/10/17 0000 Signed Impressions: Service Date/Time: Tuesday, January 10, 2017 13:41 - CONCLUSION: Normal left chest surgery with thoracostomy tubes in place. There is a single dominant residual loculated pleural fluid collection posteriorly in the left mid to upper chest. Basilar consolidation with some degree of cavitary change. Minimal non- loculated basilar pleural fluid Jairo Mosley MD Renal Ultrasound 01/09/17 0000 Signed Impressions: Service Date/Time: Monday, January 09, 2017 13:36 - CONCLUSION: 1. Echogenic kidneys typically seen with medical renal disease. Hydronephrosis is not seen on either side. 2. Possible mild stripping renal stones seen bilaterally. 3. Bilateral renal cysts. 4. Impression on the bladder floor from the prostate. Jairo Crowley MD Objective Remarks GENERAL: in NAD CARDIOVASCULAR: Regular rate and rhythm without murmurs, gallops, or rubs. RESPIRATORY bilateral basilar crackles. No rhonchi or wheezing noted. Chest tubes in place. No accessory muscle use. GASTROINTESTINAL: Abdomen soft, non-tender, nondistended. MUSCULOSKELETAL: No cyanosis, or edema. BACK: Nontender without obvious deformity. No CVA tenderness. Procedures Left thorascopic exploration for drainage of the loculated pleural effusion, lysis of adhesions, pleural biopsies, talc pleurodesis 01/07/17 Medications and IVs Current Medications Sodium Chloride (NS Flush) 2 ml UNSCH PRN IVF FLUSH AFTER USING IV ACCESS; Start 01/03/17 at 16:30; Stop 01/03/17 at 19:20; Status DC Potassium Chloride (KCl) 40 meq ONCE ONCE PO Last administered on 01/03/17 18 :07; Start 01/03/17 at 18:00; Stop 01/03/17 at 18:01; Status DC Sodium Chloride (NS Flush) 2 ml UNSCH PRN IV FLUSH FLUSH AFTER USING IV ACCESS ; Start 01/03/17 at 18:45; Stop 01/07/17 at 12:43; Status DC Sodium Chloride (NS Flush) 2 ml BID IV FLUSH Last administered on 01/07/17 08: 48; Start 01/03/17 at 21:00; Stop 01/07/17 at 12:43; Status DC Acetaminophen (Tylenol) 650 mg Q4H PRN PO Fever, headache, pain 1-4 Last administered on 01/05/17 02:24; Start 01/03/17 at 18:45; Stop 01/07/17 at 12:44 ; Status DC Ondansetron HCl (Zofran Inj) 4 mg Q6H PRN IVP NAUSEA OR VOMITING; Start at 18:45; Stop 01/07/17 at 12:46; Status DC Naloxone HCl (Narcan Inj) 0.4 mg UNSCH PRN IV SEE LABEL COMMENTS; Start at 18:45 Senna/Docusate Sodium (Gianna-Colace) 1 tab BID PO Last administered on 21:08; Start 01/03/17 at 21:00 Magnesium Hydroxide (Milk Of Magnesia Liq) 30 ml Q12H PRN PO MILD - MODERATE CONSTIPATION; Start 01/03/17 at 18:45; Stop 01/07/17 at 12:46; Status DC Sennosides (Senokot) 17.2 mg Q12H PRN PO MODERATE - SEVERE CONSTIPATION; Start 01/03/17 at 18:45 Bisacodyl (Dulcolax Supp) 10 mg DAILY PRN RECTAL SEVERE CONSITIPATION; Start at 18:45 Lactulose (Lactulose Liq) 30 ml DAILY PRN PO SEVERE CONSITIPATION; Start at 18:45 Pravastatin Sodium (Pravachol) 20 mg HS PO Last administered on 01/11/17 21:09 ; Start 01/03/17 at 22:00 Metoprolol Tartrate (Lopressor) 50 mg HS PO Last administered on 01/11/17 21: 08; Start 01/03/17 at 22:00 Amlodipine Besylate (Norvasc) 10 mg DAILY PO Last administered on 01/11/17 08: 49; Start 01/04/17 at 09:00 Metoprolol Tartrate (Lopressor) 100 mg AC BREAKFAST PO ; Start 01/04/17 at 07: 00; Stop 01/04/17 at 07:00; Status DC Patient Own Medication 1 ea QID INH AST; Start 01/04/17 at 09:00; Status Hold Metoprolol Tartrate (Lopressor) 100 mg DAILY@08 PO Last administered on 08:49; Start 01/04/17 at 08:00 Potassium Bicarb/ Potassium Chloride (K-Lyte Cl Eff) 25 meq ONCE ONCE PO Last administered on 01/04/17 12:54; Start 01/04/17 at 11:00; Stop 01/04/17 at 11:05; Status DC Potassium Chloride (KCl) 30 meq Q4HR PO Last administered on 01/04/17 16:58; Start 01/04/17 at 12:00; Stop 01/04/17 at 16:01; Status DC Sodium Chloride (NS Flush) 2 ml BID IV FLUSH ; Start 01/04/17 at 21:00; Stop at 21:00; Status DC Sodium Chloride 2 ml 2 ml UNSCH PRN IV FLUSH FLUSH AFTER USING IV ACCESS; Start 01/04/17 at 17:15; Stop 01/04/17 at 17:29; Status DC Cefazolin Sodium 500 mg/Sodium Chloride 505 ml @ 0 mls/hr HARDNESS INSPECTOR IRRIGATION ; Start 01/04/17 at 17:15; Stop 01/11/17 at 17:14; Status DC Cefazolin Sodium/ Dextrose (Ancef 2 Gm Premix) 50 ml @ 150 mls/hr HARDNESS INSPECTOR IV ; Start 01/04/17 at 17:15; Stop 01/11/17 at 17:14; Status DC Chlorhexidine Gluconate (Hibiclens 4% Top Soln) 1 applic HARDNESS INSPECTOR TOPICAL ; Start 01/04/17 at 17:15; Stop 01/11/17 at 17:14; Status DC Potassium Chloride 20 meq 20 meq Q8HR PO Last administered on 01/08/17 06:25; Start 01/06/17 at 15:00; Stop 01/08/17 at 09:58; Status DC Lactated Ringer's 1,000 ml @ 30 mls/hr Q24H PRN IV SEE LABEL COMMENTS; Start at 05:15; Stop 01/10/17 at 05:14; Status DC Sodium Chloride (NS 500 ml Inj) 500 ml @ 30 mls/hr [id number] PRN IV SEE LABEL COMMENTS; Start 01/07/17 at 05:15; Stop 01/09/17 at 16:43; Status DC Povidone Iodine (Betadine 5% Antisepsis Kit) 1 applic HARDNESS INSPECTOR PRN EACH NARE SEE LABEL COMMENTS; Start 01/07/17 at 05:15; Stop 01/10/17 at 05:14; Status DC Chlorhexidine Gluconate (Chlorhexidine 2% Cloth) 3 pack HARDNESS INSPECTOR PRN TOPICAL SEE LABEL COMMENTS; Start 01/07/17 at 05:15; Stop 01/10/17 at 05:14; Status DC Insulin Human Regular (NovoLIN R INJ) See Protocol Table ... HARDNESS INSPECTOR PRN SQ SEE PROTOCOL TABLE; Start 01/07/17 at 05:15; Stop 01/10/17 at 05:14; Status DC Bupivacaine HCl 30 ml 30 ml STK-MED ONCE .ROUTE Last administered on 01/07/17 11:51; Start 01/07/17 at 10:37; Stop 01/07/17 at 10:38; Status DC Cefazolin Sodium/ Dextrose (Ancef 2 Gm Premix) 50 ml @ As Directed STK-MED ONCE .ROUTE Last administered on 01/07/17 11:36; Start 01/07/17 at 10:37; Stop at 10:38; Status DC Talc (Sterile Talc Aerosol 4 Gm) 4 gm STK-MED ONCE I-PLEURAL Last administered on 01/07/17 12:21; Start 01/07/17 at 12:21; Stop 01/07/17 at 12:26; Status DC Albuterol Sulfate (Albuterol Neb) 2.5 mg Q6HR NEB NEB Last administered on 09:25; Start 01/07/17 at 16:00; Stop 01/11/17 at 16:00; Status DC Albuterol Sulfate (Albuterol Neb) 2.5 mg Q2HR NEB PRN NEB WHEEZING Last administered on 01/10/17 01:01; Start 01/07/17 at 12:45 IV Flush (NS Flush) 2 ml BID IV FLUSH Last administered on 01/11/17 21:00; Start 01/07/17 at 21:00 IV Flush (NS Flush) 2 ml UNSCH PRN IV FLUSH FLUSH AFTER USING IV ACCESS; Start 01/07/17 at 12:45 Miscellaneous Information STAT ONCE OTHER ; Start 01/07/17 at 12:45; Stop at 12:52; Status DC Cefazolin Sodium/ Dextrose (Ancef 1 Gm Premix) 50 ml @ 150 mls/hr Q8H IV ; Start 01/07/17 at 19:00; Stop 01/07/17 at 19:00; Status DC Pantoprazole Sodium (Protonix) 40 mg HS PO Last administered on 01/11/17 21:09 ; Start 01/07/17 at 21:00 Ondansetron HCl (Zofran Inj) 4 mg Q6H PRN IV PUSH NAUSEA OR VOMITING; Start at 12:45 Docusate Calcium (Surfak) 240 mg HS PO Last administered on 01/11/17 21:09; Start 01/07/17 at 21:00 Magnesium Hydroxide (Milk Of Magnesia Liq) 30 ml DAILY PRN PO CONSTIPATION; Start 01/07/17 at 12:45 Acetaminophen (Tylenol) 650 mg Q4H PRN PO TEMPERATURE > 101 F Last administered on 01/07/17 22:17; Start 01/07/17 at 12:45 Insulin Aspart (NovoLOG SUPPLEMENTAL SCALE) Q6HR SQ ; Start 01/07/17 at 18:00; Stop 01/11/17 at 07:59; Status DC Miscellaneous Information 1 ONCE ONCE OTHER ; Start 01/07/17 at 12:45; Stop at 12:50; Status DC Dextrose (D50w (Vial) Inj) 50 ml UNSCH PRN IV HYPOGLYCEMIA-SEE COMMENTS; Start 01/07/17 at 12:45; Stop 01/11/17 at 07:59; Status DC Glucagon (Glucagon Inj) 1 mg UNSCH PRN IV HYPOGLYCEMIA-SEE COMMENTS; Start at 12:45 Oxycodone/ Acetaminophen (Percocet 5-325 Mg) 1 tab Q3H PRN PO PAIN SCALE 3 TO 5 Last administered on 01/11/17 16:50; Start 01/07/17 at 12:45 Oxycodone/ Acetaminophen (Percocet 5-325 Mg) 2 tab Q3H PRN PO PAIN SCALE 6 TO 10 Last administered on 01/12/17 05:58; Start 01/07/17 at 12:45 Fentanyl Citrate (fentaNYL INJ) 250 mcg STK-MED ONCE .ROUTE ; Start 01/07/17 at 13:12; Stop 01/07/17 at 13:13; Status DC Miscellaneous Information ALL NURSING DEPARTME... UNSCH PRN .XX SEE LABEL COMMENTS; Start 01/07/17 at 13:00; Stop 01/08/17 at 12:59; Status DC Morphine Sulfate 8 mg 8 mg STK-MED ONCE .ROUTE Last administered on 01/07/17 13:53; Start 01/07/17 at 13:53; Stop 01/07/17 at 13:54; Status DC Cefazolin Sodium/ Sodium Chloride (Ancef Inj/NS Inj) 100 ml @ 200 mls/hr Q8H IV Last administered on 01/08/17 10:30; Start 01/07/17 at 18:00; Stop at 10:29; Status DC Potassium Bicarb/ Potassium Chloride 25 meq 25 meq ONCE ONCE PO ; Start at 17:45; Stop 01/07/17 at 17:46; Status DC Sodium Chloride (1/2 NS 1000 ml Inj) 1,000 ml @ 100 mls/hr Q10H IV Last administered on 01/09/17 19:00; Start 01/09/17 at 09:00; Stop 01/10/17 at 04:59 ; Status DC Potassium Chloride (KCl) 40 meq ONCE ONCE PO Last administered on 01/09/17 10 :03; Start 01/09/17 at 09:00; Stop 01/09/17 at 09:02; Status DC Bisacodyl (Dulcolax Supp) 10 mg ONCE ONCE RECTAL ; Start 01/11/17 at 12:15; Stop 01/11/17 at 13:01; Status DC Lidocaine/ Epinephrine 20 ml 20 ml STK-MED ONCE .ROUTE Last administered on 14:45; Start 01/11/17 at 14:45; Stop 01/11/17 at 14:46; Status DC Sodium Bicarbonate (Sodium Bicarbonate 8.4% Inj) 50 ml @ As Directed STK-MED ONCE .ROUTE Last administered on 01/11/17 14:45; Start 01/11/17 at 14:45; Stop 01/11/17 at 14:46; Status DC Fentanyl Citrate (fentaNYL INJ) 250 mcg STK-MED ONCE .ROUTE Last administered on 01/11/17 15:55; Start 01/11/17 at 15:14; Stop 01/11/17 at 15:15; Status DC Midazolam HCl (Versed Inj) 5 mg STK-MED ONCE .ROUTE Last administered on 15:55; Start 01/11/17 at 15:14; Stop 01/11/17 at 15:15; Status DC A/P Problem List: (1) Pleural effusion ICD Code: J90 Status: Acute (2) Hypoxia ICD Code: R09.02 Status: Acute (3) Hypokalemia ICD Code: E87.6 Status: Acute Assessment and Plan Mr. Austin 76 year old male patient with hypoxia and recurrent/persistent pleural effusion. Patient underwent thoracentesis 6 weeks ago in [place] as well as an other thoracentesis about a week ago at [facility]. Cytology was negative in the previous study. On arrival patient's oxygen saturation was 84% on room air which improved to 93 - 96 % on 2 L oxygen via nasal cannula. Off note patient has a history of 30 years smoking but he quit about 37 years ago. Acute respiratory failure/ Left-sided pleural effusion CT thorax/chest shows loculated pleural effusions with pleural masses. Pulmonology ad CT surgery consults appreciated. Status post left thorascopic exploration for drainage of the loculated pleural effusion, lysis of adhesions, pleural biopsies, talc pleurodesis 01/07/17. - oxygen and nebs as needed. - follow pathology. Cytology and cultures negative. - follow up with pulmonology. - chest tube per cardiothoracic surgery. -Repeat CT of the chest showed a single dominant residual loculated pleural fluid collection posteriorly in the left mid to upper chest. Basilar consolidation with some degree of cavitary change. Minimal non-loculated basilar pleural fluid. -Left chest tube placed yesterday by IR on 01/11/2017. Acute renal failure -Improved with IV fluids. Good urine output. -Renal ultrasound shows medical renal disease. There is no obstruction shown. -Most likely secondary to hypoperfusion. -Continue to monitor. -Avoid nephrotoxins. -Strict ins and outs. Weight loss The patient endorses a recent 30 pound weight loss. Possibly secondary to lung malignancy which is being worked up. - TSH within normal limits. Hemoglobin A1c 5.7. LFTs within normal limits. - Follow pathology. - Outpatient follow-up. Hypokalemia The patient says he always has low potassium. - replete and monitor. Hyperglycemia Glucose level slightly elevated. He was told he has borderline diabetes. - ISS. - Hemoglobin A1c 5.7. Full code. SCDs. Discharge Planning Patient requires continued hospitalization due to pleural effusion and for chest tube management. Gloria Roy MD Jan 12, 2017 08:58
[2017-01-12] MEDS: SODIUM CHLORIDE 0.9% FLUSH 5 ML FLUSH IV FLUSH SCH ×2 (09:00→20:38)
[2017-01-12] MEDS: DOCUSATE SODIUM 50 MG/SENNA 8.6 MG TAB PO SCH ×2 (09:25→20:37)
[2017-01-12] MEDS: METOPROLOL TARTRATE 100 MG TAB PO SCH (09:26)
--- NOTE | 2017-01-12 09:40 | PD.CAR.PN ---
CVT Progress Note CVT: POD #: 5 Subjective/Hospital Course: c/o pain related to chest tubes 01/09/17 Creatinine up. Patient has no complaints. Weight is down quite a bit since admission. 01/10/17 no complaints today renal function improving continues on 4 liters NC 01/11/17 no complaints Still on 4 liters NC 01/12/17 no complaints. On less O2 now s/p radiology drainage procedure. Objective: Vital Signs Date Time Temp Pulse Resp B/P Pulse Ox O2 Delivery O2 Flow Rate FiO2 01/12/17 09:23 94 Nasal Cannula 3.00 01/12/17 07:00 93 Nasal Cannula 3.00 01/12/17 07:00 88 01/12/17 07:00 97.6 94 20 146/83 93 01/12/17 06:00 90 01/12/17 05:00 89 01/12/17 04:00 86 01/12/17 03:00 92 Nasal Cannula 3.00 01/12/17 03:00 88 01/12/17 03:00 97.7 88 18 139/81 92 01/12/17 02:00 88 01/12/17 01:00 92 01/12/17 00:00 94 01/11/17 23:30 93 Nasal Cannula 3.00 01/11/17 23:30 97.9 98 18 151/85 93 01/11/17 23:00 95 01/11/17 22:00 98 01/11/17 21:00 94 01/11/17 20:00 98.1 96 18 143/84 95 01/11/17 20:00 95 Nasal Cannula 3.00 01/11/17 20:00 98 01/11/17 19:00 98 01/11/17 18:04 76 01/11/17 17:36 92 Nasal Cannula 3.00 01/11/17 17:00 74 01/11/17 17:00 92 Nasal Cannula 3.00 01/11/17 16:42 97.5 99 20 154/89 92 01/11/17 16:00 76 01/11/17 15:00 64 01/11/17 14:02 88 01/11/17 13:00 86 01/11/17 11:44 98.7 86 20 124/76 95 01/11/17 11:00 88 01/11/17 11:00 95 Nasal Cannula 2.50 01/11/17 10:00 86 Result Diagram: 01/10/17 0556 01/11/17 0604 Imaging: Last 24 hours Impressions Chest X-Ray 01/11/17 1613 Signed Impressions: Service Date/Time: Wednesday, January 11, 2017 16:09 - CONCLUSION: 1. No pneumothorax status post placement of left chest tube. 2. Two large chest tubes are stable compared to previous examination. 3. Scattered infiltrates and/or atelectasis are stable. Kelvin Olmstead MD Cardiovascular: RRR Telemetry: NSR Pulmonary: CTA GI/: NABS, NT Incision: dry and intact CT: ~160ml since yesterday with 120 ml from new posterior catheter Plan: Wean O2 Continue chest tubes one more day - CXR markedly improved s/p CT-guided drainage of loculated collection Cytology on pleural fluid was negative for malignancy, pleural biopsy pending Anticipate d/c tomorrow or Tuesday Yola Crouch MD Jan 12, 2017 09:40
[2017-01-12 13:26] LABS: BICARBONATE 31.6 MEQ/L (21.0-32.0); POTASSIUM 3.3 MEQ/L (3.5-5.1)
[2017-01-12] MEDS: DOCUSATE CALCIUM 240 MG CAP PO SCH (20:38)
[2017-01-12] MEDS: METOPROLOL TARTRATE 50 MG TAB PO SCH (20:38)
[2017-01-12] MEDS: PRAVASTATIN SOD 20 MG TAB PO SCH (20:38)
[2017-01-12] MEDS: PANTOPRAZOLE SOD 40 MG DELAYED RELEASE TAB PO SCH (20:38)
[2017-01-12] MEDS ORDERED: oxyCODONE/ACETAMINOPHEN 10 MG/325 MG TAB PO PRN (21:00)
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
[2017-01-13] VITALS (26 sets, daily range): BP systolic 129–160; BP diastolic 78–99; PULSE 64–109; RESP 18–21; TEMP 97.8–98.6; O2SAT 93–99
[2017-01-13] MEDS: oxyCODONE/ACETAMINOPHEN 10 MG/325 MG TAB PO PRN ×4 (01:20→21:56)
[2017-01-13 08:26] LABS: BICARBONATE 32.4 MEQ/L (21.0-32.0); POTASSIUM 3.5 MEQ/L (3.5-5.1)
[2017-01-13] MEDS: SODIUM CHLORIDE 0.9% FLUSH 5 ML FLUSH IV FLUSH SCH ×2 (09:00→21:00)
[2017-01-13] MEDS: DOCUSATE SODIUM 50 MG/SENNA 8.6 MG TAB PO SCH ×2 (09:09→21:00)
[2017-01-13] MEDS: METOPROLOL TARTRATE 100 MG TAB PO SCH (09:09)
--- NOTE | 2017-01-13 09:20 | HHI.PR ---
Subjective Remarks f/u for pleural effusion Patient was not talkative today. When I asked him how he was doing today he stated "what do you think? Do you know the results of my biopsy?" I told patient "yes I am aware of results" and gave emotional support. He denies any shortness of breathing or any other concerns. Per his nurse she stated that patient's very anxious to see Dr. Poole. Objective Vitals Vital Signs Date Time Temp Pulse Resp B/P Pulse Ox O2 Delivery O2 Flow Rate FiO2 01/13/17 07:20 96 Nasal Cannula 4.00 01/13/17 07:20 98.5 97 21 151/88 96 01/13/17 07:00 109 01/13/17 06:00 83 01/13/17 05:00 85 01/13/17 04:00 95 Nasal Cannula 4.00 01/13/17 04:00 97.8 93 18 160/99 95 01/13/17 04:00 92 01/13/17 03:00 84 01/13/17 02:00 83 01/13/17 01:00 86 01/13/17 00:00 86 01/12/17 23:30 96 Nasal Cannula 4.00 01/12/17 23:30 97.5 86 18 137/81 96 01/12/17 23:00 80 01/12/17 22:00 82 01/12/17 21:00 86 01/12/17 20:00 96 Nasal Cannula 4.00 01/12/17 20:00 90 01/12/17 20:00 98.3 89 18 137/86 96 01/12/17 19:00 90 01/12/17 18:16 70 01/12/17 17:45 73 01/12/17 16:15 79 01/12/17 15:00 95 Nasal Cannula 3.00 01/12/17 15:00 79 01/12/17 15:00 97.3 83 18 122/73 95 01/12/17 14:00 78 01/12/17 13:45 79 01/12/17 12:03 89 01/12/17 11:00 97.8 94 18 144/83 93 01/12/17 11:00 94 Nasal Cannula 3.00 01/12/17 11:00 93 01/12/17 10:13 87 01/12/17 09:23 94 Nasal Cannula 3.00 I/O 01/12/17 01/12/17 01/12/17 01/13/17 01/13/17 01/13/17 07:00 15:00 23:00 07:00 15:00 23:00 Intake Total 240 ml 780 ml 480 ml Output Total 950 ml 1020 ml 610 ml Balance -710 ml -240 ml -130 ml Intake Oral 240 ml 780 ml 480 ml IV Total 0 ml Output Urine Total 900 ml 900 ml 600 ml Chest Tube Drainage Total 50 ml 120 ml 10 ml # Bowel Movements 0 0 Result Diagram: 01/10/17 0556 01/13/17 0657 Objective Remarks GENERAL: in NAD CARDIOVASCULAR: Regular rate and rhythm without murmurs, gallops, or rubs. RESPIRATORY bilateral basilar crackles. No rhonchi or wheezing noted. Chest tubes in place. No accessory muscle use. GASTROINTESTINAL: Abdomen soft, non-tender, nondistended. MUSCULOSKELETAL: No cyanosis, or edema. BACK: Nontender without obvious deformity. No CVA tenderness. Procedures Left thorascopic exploration for drainage of the loculated pleural effusion, lysis of adhesions, pleural biopsies, talc pleurodesis 01/07/17 Medications and IVs Current Medications Sodium Chloride (NS Flush) 2 ml UNSCH PRN IVF FLUSH AFTER USING IV ACCESS; Start 01/03/17 at 16:30; Stop 01/03/17 at 19:20; Status DC Potassium Chloride (KCl) 40 meq ONCE ONCE PO Last administered on 01/03/17 18 :07; Start 01/03/17 at 18:00; Stop 01/03/17 at 18:01; Status DC Sodium Chloride (NS Flush) 2 ml UNSCH PRN IV FLUSH FLUSH AFTER USING IV ACCESS ; Start 01/03/17 at 18:45; Stop 01/07/17 at 12:43; Status DC Sodium Chloride (NS Flush) 2 ml BID IV FLUSH Last administered on 01/07/17 08: 48; Start 01/03/17 at 21:00; Stop 01/07/17 at 12:43; Status DC Acetaminophen (Tylenol) 650 mg Q4H PRN PO Fever, headache, pain 1-4 Last administered on 01/05/17 02:24; Start 01/03/17 at 18:45; Stop 01/07/17 at 12:44 ; Status DC Ondansetron HCl (Zofran Inj) 4 mg Q6H PRN IVP NAUSEA OR VOMITING; Start at 18:45; Stop 01/07/17 at 12:46; Status DC Naloxone HCl (Narcan Inj) 0.4 mg UNSCH PRN IV SEE LABEL COMMENTS; Start at 18:45 Senna/Docusate Sodium (Gianna-Colace) 1 tab BID PO Last administered on 09:09; Start 01/03/17 at 21:00 Magnesium Hydroxide (Milk Of Magnesia Liq) 30 ml Q12H PRN PO MILD - MODERATE CONSTIPATION; Start 01/03/17 at 18:45; Stop 01/07/17 at 12:46; Status DC Sennosides (Senokot) 17.2 mg Q12H PRN PO MODERATE - SEVERE CONSTIPATION; Start 01/03/17 at 18:45 Bisacodyl (Dulcolax Supp) 10 mg DAILY PRN RECTAL SEVERE CONSITIPATION Last administered on 01/12/17 17:11; Start 01/03/17 at 18:45 Lactulose (Lactulose Liq) 30 ml DAILY PRN PO SEVERE CONSITIPATION; Start at 18:45 Pravastatin Sodium (Pravachol) 20 mg HS PO Last administered on 01/12/17 20:38 ; Start 01/03/17 at 22:00 Metoprolol Tartrate (Lopressor) 50 mg HS PO Last administered on 01/12/17 20: 38; Start 01/03/17 at 22:00 Amlodipine Besylate (Norvasc) 10 mg DAILY PO Last administered on 01/13/17 09: 09; Start 01/04/17 at 09:00 Metoprolol Tartrate (Lopressor) 100 mg AC BREAKFAST PO ; Start 01/04/17 at 07: 00; Stop 01/04/17 at 07:00; Status DC Patient Own Medication 1 ea QID INH AST; Start 01/04/17 at 09:00; Status Hold Metoprolol Tartrate (Lopressor) 100 mg DAILY@08 PO Last administered on 09:09; Start 01/04/17 at 08:00 Potassium Bicarb/ Potassium Chloride (K-Lyte Cl Eff) 25 meq ONCE ONCE PO Last administered on 01/04/17 12:54; Start 01/04/17 at 11:00; Stop 01/04/17 at 11:05; Status DC Potassium Chloride (KCl) 30 meq Q4HR PO Last administered on 01/04/17 16:58; Start 01/04/17 at 12:00; Stop 01/04/17 at 16:01; Status DC Sodium Chloride (NS Flush) 2 ml BID IV FLUSH ; Start 01/04/17 at 21:00; Stop at 21:00; Status DC Sodium Chloride 2 ml 2 ml UNSCH PRN IV FLUSH FLUSH AFTER USING IV ACCESS; Start 01/04/17 at 17:15; Stop 01/04/17 at 17:29; Status DC Cefazolin Sodium 500 mg/Sodium Chloride 505 ml @ 0 mls/hr [employer]IGATION ; Start 01/04/17 at 17:15; Stop 01/11/17 at 17:14; Status DC Cefazolin Sodium/ Dextrose (Ancef 2 Gm Premix) 50 ml @ 150 mls/hr [employer] IV ; Start 01/04/17 at 17:15; Stop 01/11/17 at 17:14; Status DC Chlorhexidine Gluconate (Hibiclens 4% Top Soln) 1 applic [employer] TOPICAL ; Start 01/04/17 at 17:15; Stop 01/11/17 at 17:14; Status DC Potassium Chloride 20 meq 20 meq Q8HR PO Last administered on 01/08/17 06:25; Start 01/06/17 at 15:00; Stop 01/08/17 at 09:58; Status DC Lactated Ringer's 1,000 ml @ 30 mls/hr Q24H PRN IV SEE LABEL COMMENTS; Start at 05:15; Stop 01/10/17 at 05:14; Status DC Sodium Chloride (NS 500 ml Inj) 500 ml @ 30 mls/hr [id number] PRN IV SEE LABEL COMMENTS; Start 01/07/17 at 05:15; Stop 01/09/17 at 16:43; Status DC Povidone Iodine (Betadine 5% Antisepsis Kit) 1 applic [employer] PRN EACH NARE SEE LABEL COMMENTS; Start 01/07/17 at 05:15; Stop 01/10/17 at 05:14; Status DC Chlorhexidine Gluconate (Chlorhexidine 2% Cloth) 3 pack [employer] PRN TOPICAL SEE LABEL COMMENTS; Start 01/07/17 at 05:15; Stop 01/10/17 at 05:14; Status DC Insulin Human Regular (NovoLIN R INJ) See Protocol Table ... [employer] PRN SQ SEE PROTOCOL TABLE; Start 01/07/17 at 05:15; Stop 01/10/17 at 05:14; Status DC Bupivacaine HCl 30 ml 30 ml STK-MED ONCE .ROUTE Last administered on 01/07/17 11:51; Start 01/07/17 at 10:37; Stop 01/07/17 at 10:38; Status DC Cefazolin Sodium/ Dextrose (Ancef 2 Gm Premix) 50 ml @ As Directed STK-MED ONCE .ROUTE Last administered on 01/07/17 11:36; Start 01/07/17 at 10:37; Stop at 10:38; Status DC Talc (Sterile Talc Aerosol 4 Gm) 4 gm STK-MED ONCE I-PLEURAL Last administered on 01/07/17 12:21; Start 01/07/17 at 12:21; Stop 01/07/17 at 12:26; Status DC Albuterol Sulfate (Albuterol Neb) 2.5 mg Q6HR NEB NEB Last administered on 09:25; Start 01/07/17 at 16:00; Stop 01/11/17 at 16:00; Status DC Albuterol Sulfate (Albuterol Neb) 2.5 mg Q2HR NEB PRN NEB WHEEZING Last administered on 01/10/17 01:01; Start 01/07/17 at 12:45 IV Flush (NS Flush) 2 ml BID IV FLUSH Last administered on 01/13/17 09:00; Start 01/07/17 at 21:00 IV Flush (NS Flush) 2 ml UNSCH PRN IV FLUSH FLUSH AFTER USING IV ACCESS; Start 01/07/17 at 12:45 Miscellaneous Information STAT ONCE OTHER ; Start 01/07/17 at 12:45; Stop at 12:52; Status DC Cefazolin Sodium/ Dextrose (Ancef 1 Gm Premix) 50 ml @ 150 mls/hr Q8H IV ; Start 01/07/17 at 19:00; Stop 01/07/17 at 19:00; Status DC Pantoprazole Sodium (Protonix) 40 mg HS PO Last administered on 01/12/17 20:38 ; Start 01/07/17 at 21:00 Ondansetron HCl (Zofran Inj) 4 mg Q6H PRN IV PUSH NAUSEA OR VOMITING; Start at 12:45 Docusate Calcium (Surfak) 240 mg HS PO Last administered on 01/12/17 20:38; Start 01/07/17 at 21:00 Magnesium Hydroxide (Milk Of Magnesia Liq) 30 ml DAILY PRN PO CONSTIPATION; Start 01/07/17 at 12:45 Acetaminophen (Tylenol) 650 mg Q4H PRN PO TEMPERATURE > 101 F Last administered on 01/07/17 22:17; Start 01/07/17 at 12:45 Insulin Aspart (NovoLOG SUPPLEMENTAL SCALE) Q6HR SQ ; Start 01/07/17 at 18:00; Stop 01/11/17 at 07:59; Status DC Miscellaneous Information 1 ONCE ONCE OTHER ; Start 01/07/17 at 12:45; Stop at 12:50; Status DC Dextrose (D50w (Vial) Inj) 50 ml UNSCH PRN IV HYPOGLYCEMIA-SEE COMMENTS; Start 01/07/17 at 12:45; Stop 01/11/17 at 07:59; Status DC Glucagon (Glucagon Inj) 1 mg UNSCH PRN IV HYPOGLYCEMIA-SEE COMMENTS; Start at 12:45 Oxycodone/ Acetaminophen (Percocet 5-325 Mg) 1 tab Q3H PRN PO PAIN SCALE 3 TO 5 Last administered on 01/11/17 16:50; Start 01/07/17 at 12:45; Stop 01/12/17 at 20:46; Status DC Oxycodone/ Acetaminophen (Percocet 5-325 Mg) 2 tab Q3H PRN PO PAIN SCALE 6 TO 10 Last administered on 01/12/17 18:35; Start 01/07/17 at 12:45; Stop 01/12/17 at 20:46; Status DC Fentanyl Citrate (fentaNYL INJ) 250 mcg STK-MED ONCE .ROUTE ; Start 01/07/17 at 13:12; Stop 01/07/17 at 13:13; Status DC Miscellaneous Information ALL NURSING DEPARTME... UNSCH PRN .XX SEE LABEL COMMENTS; Start 01/07/17 at 13:00; Stop 01/08/17 at 12:59; Status DC Morphine Sulfate 8 mg 8 mg STK-MED ONCE .ROUTE Last administered on 01/07/17 13:53; Start 01/07/17 at 13:53; Stop 01/07/17 at 13:54; Status DC Cefazolin Sodium/ Sodium Chloride (Ancef Inj/NS Inj) 100 ml @ 200 mls/hr Q8H IV Last administered on 01/08/17 10:30; Start 01/07/17 at 18:00; Stop at 10:29; Status DC Potassium Bicarb/ Potassium Chloride 25 meq 25 meq ONCE ONCE PO ; Start at 17:45; Stop 01/07/17 at 17:46; Status DC Sodium Chloride (1/2 NS 1000 ml Inj) 1,000 ml @ 100 mls/hr Q10H IV Last administered on 01/09/17 19:00; Start 01/09/17 at 09:00; Stop 01/10/17 at 04:59 ; Status DC Potassium Chloride (KCl) 40 meq ONCE ONCE PO Last administered on 01/09/17 10 :03; Start 01/09/17 at 09:00; Stop 01/09/17 at 09:02; Status DC Bisacodyl (Dulcolax Supp) 10 mg ONCE ONCE RECTAL ; Start 01/11/17 at 12:15; Stop 01/11/17 at 13:01; Status DC Lidocaine/ Epinephrine 20 ml 20 ml STK-MED ONCE .ROUTE Last administered on 14:45; Start 01/11/17 at 14:45; Stop 01/11/17 at 14:46; Status DC Sodium Bicarbonate (Sodium Bicarbonate 8.4% Inj) 50 ml @ As Directed STK-MED ONCE .ROUTE Last administered on 01/11/17 14:45; Start 01/11/17 at 14:45; Stop 01/11/17 at 14:46; Status DC Fentanyl Citrate (fentaNYL INJ) 250 mcg STK-MED ONCE .ROUTE Last administered on 6/27/17at 15:55; Start 01/11/17 at 15:14; Stop 01/11/17 at 15:15; Status DC Midazolam HCl (Versed Inj) 5 mg STK-MED ONCE .ROUTE Last administered on 15:55; Start 01/11/17 at 15:14; Stop 01/11/17 at 15:15; Status DC Oxycodone/ Acetaminophen (Percocet 10-325 Mg) 1 tab Q4H PRN PO PAIN SCALE 1-7 Last administered on 01/13/17 09:10; Start 01/12/17 at 21:00 Oxycodone/ Acetaminophen (Percocet 10-325 Mg) 2 tab Q4H PRN PO PAIN SCALE 8-10 ; Start 01/12/17 at 21:00 A/P Problem List: (1) Pleural effusion ICD Code: J90 Status: Acute (2) Hypoxia ICD Code: R09.02 Status: Acute (3) Hypokalemia ICD Code: E87.6 Status: Acute Assessment and Plan Mr. Austin 76 year old male patient with hypoxia and recurrent/persistent pleural effusion. Patient underwent thoracentesis 6 weeks ago in [place] as well as an other thoracentesis about a week ago at [place]. Cytology was negative in the previous study. On arrival patient's oxygen saturation was 84% on room air which improved to 93 - 96 % on 2 L oxygen via nasal cannula. Off note patient has a history of 30 years smoking but he quit about 37 years ago. Acute respiratory failure/ Left-sided pleural effusion CT thorax/chest shows loculated pleural effusions with pleural masses. Pulmonology ad CT surgery consults appreciated. Status post left thorascopic exploration for drainage of the loculated pleural effusion, lysis of adhesions, pleural biopsies, talc pleurodesis 01/07/17. - oxygen and nebs as needed. - Cytology and cultures negative. Pathology shows small cell carcinoma. -Repeat CT of the chest showed a single dominant residual loculated pleural fluid collection posteriorly in the left mid to upper chest. Basilar consolidation with some degree of cavitary change. Minimal non-loculated basilar pleural fluid. -Left chest tube placed yesterday by IR on 01/11/2017. -chest tube management per cardiothoracic surgery. Per CTS possible removal of chest tubes today. Small cell carcinoma -Oncologist consulted. Acute renal failure -Improved with IV fluids. Good urine output. -Renal ultrasound shows medical renal disease. There is no obstruction shown. -Most likely secondary to hypoperfusion. -Continue to monitor. -Avoid nephrotoxins. -Strict ins and outs. Weight loss The patient endorses a recent 30 pound weight loss. Possibly secondary to lung malignancy which is being worked up. - TSH within normal limits. Hemoglobin A1c 5.7. LFTs within normal limits. - Follow pathology. - Outpatient follow-up. Hypokalemia The patient says he always has low potassium. - replete and monitor. Hyperglycemia Glucose level slightly elevated. He was told he has borderline diabetes. - ISS. - Hemoglobin A1c 5.7. Full code. SCDs. Discharge Planning Patient requires continued hospitalization due to pleural effusion and for chest tube management. Newly diagnosed small cell carcinoma. Gloria Roy MD Jan 13, 2017 09:20
--- NOTE | 2017-01-13 09:58 | PD.CAR.PN ---
CVT Progress Note CVT: POD #: 5 Subjective/Hospital Course: c/o pain related to chest tubes 01/09/17 Creatinine up. Patient has no complaints. Weight is down quite a bit since admission. 01/10/17 no complaints today renal function improving continues on 4 liters NC 01/11/17 no complaints Still on 4 liters NC 01/12/17 no complaints. On less O2 now s/p radiology drainage procedure. 01/13/17 No complaints. Continues on 4liters NC Objective: Vital Signs Date Time Temp Pulse Resp B/P Pulse Ox O2 Delivery O2 Flow Rate FiO2 01/13/17 09:33 99 Nasal Cannula 1.00 01/13/17 09:32 94 3.00 01/13/17 07:20 96 Nasal Cannula 4.00 01/13/17 07:20 98.5 97 21 151/88 96 01/13/17 07:00 109 01/13/17 06:00 83 01/13/17 05:00 85 01/13/17 04:00 95 Nasal Cannula 4.00 01/13/17 04:00 97.8 93 18 160/99 95 01/13/17 04:00 92 01/13/17 03:00 84 01/13/17 02:00 83 01/13/17 01:00 86 01/13/17 00:00 86 01/12/17 23:30 96 Nasal Cannula 4.00 01/12/17 23:30 97.5 86 18 137/81 96 01/12/17 23:00 80 01/12/17 22:00 82 01/12/17 21:00 86 01/12/17 20:00 96 Nasal Cannula 4.00 01/12/17 20:00 90 01/12/17 20:00 98.3 89 18 137/86 96 01/12/17 19:00 90 01/12/17 18:16 70 01/12/17 17:45 73 01/12/17 16:15 79 01/12/17 15:00 95 Nasal Cannula 3.00 01/12/17 15:00 79 01/12/17 15:00 97.3 83 18 122/73 95 01/12/17 14:00 78 01/12/17 13:45 79 01/12/17 12:03 89 01/12/17 11:00 97.8 94 18 144/83 93 01/12/17 11:00 94 Nasal Cannula 3.00 01/12/17 11:00 93 01/12/17 10:13 87 Labs: Laboratory Tests Test 01/13/17 06:57 Sodium Level 140 MEQ/L (136-145) Potassium Level 3.5 MEQ/L (3.5-5.1) Chloride Level 102 MEQ/L (98-107) Carbon Dioxide Level 32.4 MEQ/L (21.0-32.0) Anion Gap 6 MEQ/L (5-15) Blood Urea Nitrogen 18 MG/DL (7-18) Creatinine 1.27 MG/DL (0.60-1.30) Estimat Glomerular Filtration 55 ML/MIN (>89) Rate Random Glucose 102 MG/DL (74-106) Calcium Level 9.0 MG/DL (8.5-10.1) Result Diagram: 01/10/17 0556 01/13/17 0657 Cardiovascular: RRR Telemetry: NSR Pulmonary: CTA GI/: NABS, NT Incision: dry and intact CT: minimal output from all chest drains Plan: Pleural biopsy is positive for small cell CA. Dr. Poole consulted. D/C chest tubes and pgtail. CXR in AM Wean O2. OK to d/c from my standpoint when he tolerates 2 liters BRETT. Yola Crouch MD Jan 13, 2017 09:58
--- NOTE | 2017-01-13 12:08 | PD.ONC.PN ---
Subjective Subjective Remarks Afebrile overnight. Patient resting comfortably in room. just had chest tubes removed about an hour ago. Objective Data Date Time Temp Pulse Resp B/P Pulse Ox O2 Delivery O2 Flow Rate FiO2 01/13/17 10:00 92 01/13/17 09:33 99 Nasal Cannula 1.00 01/13/17 09:32 94 3.00 01/13/17 09:00 100 01/13/17 08:00 96 01/13/17 07:20 96 Nasal Cannula 4.00 01/13/17 07:20 98.5 97 21 151/88 96 01/13/17 07:00 109 01/13/17 06:00 83 01/13/17 05:00 85 01/13/17 04:00 95 Nasal Cannula 4.00 01/13/17 04:00 97.8 93 18 160/99 95 01/13/17 04:00 92 01/13/17 03:00 84 01/13/17 02:00 83 01/13/17 01:00 86 01/13/17 00:00 86 01/12/17 23:30 96 Nasal Cannula 4.00 01/12/17 23:30 97.5 86 18 137/81 96 01/12/17 23:00 80 01/12/17 22:00 82 01/12/17 21:00 86 01/12/17 20:00 96 Nasal Cannula 4.00 01/12/17 20:00 90 01/12/17 20:00 98.3 89 18 137/86 96 01/12/17 19:00 90 01/12/17 18:16 70 01/12/17 17:45 73 01/12/17 16:15 79 01/12/17 15:00 95 Nasal Cannula 3.00 01/12/17 15:00 79 01/12/17 15:00 97.3 83 18 122/73 95 01/12/17 14:00 78 01/12/17 13:45 79 01/13/17 01/13/17 01/13/17 07:00 15:00 23:00 Intake Total 480 ml Output Total 610 ml Balance -130 ml Result Diagram: 01/10/17 0556 01/13/17 0657 Laboratory Results Laboratory Tests Test 01/12/17 01/13/17 12:15 06:57 Sodium Level 142 MEQ/L 140 MEQ/L Potassium Level 3.3 MEQ/L 3.5 MEQ/L Chloride Level 104 MEQ/L 102 MEQ/L Carbon Dioxide Level 31.6 MEQ/L 32.4 MEQ/L Anion Gap 6 MEQ/L 6 MEQ/L Blood Urea Nitrogen 16 MG/DL 18 MG/DL Creatinine 1.24 MG/DL 1.27 MG/DL Estimat Glomerular Filtration 57 ML/MIN 55 ML/MIN Rate Random Glucose 102 MG/DL 102 MG/DL Calcium Level 9.1 MG/DL 9.0 MG/DL Culture Results Microbiology Date/Time Procedure Status Source Growth 01/11/17 16:00 Gram Stain - Final Resulted Fluid Pleural Fluid 01/11/17 16:00 Body Fluid Culture - Preliminary Resulted Fluid Pleural Fluid NO GROWTH IN 48 HOURS. Administered Medications Medications (Trade) Dose Ordered Sig/Jung Route PRN Reason Start Time Stop Time Status Last Admin Dose Admin Senna/Docusate Sodium (Gianna-Colace) 1 tab BID PO 01/03/17 21:00 01/13/17 09:09 Bisacodyl (Dulcolax Supp) 10 mg DAILY PRN RECTAL SEVERE CONSITIPATION 01/03/17 18:45 01/12/17 17:11 Pravastatin Sodium (Pravachol) 20 mg HS PO 01/03/17 22:00 01/12/17 20:38 Metoprolol Tartrate (Lopressor) 50 mg HS PO 01/03/17 22:00 01/12/17 20:38 Amlodipine Besylate (Norvasc) 10 mg DAILY PO 01/04/17 09:00 01/13/17 09:09 Metoprolol Tartrate (Lopressor) 100 mg DAILY@08 PO 01/04/17 08:00 01/13/17 09:09 IV Flush (NS Flush) 2 ml BID IV FLUSH 01/07/17 21:00 01/13/17 09:00 Pantoprazole Sodium (Protonix) 40 mg HS PO 01/07/17 21:00 01/12/17 20:38 Docusate Calcium (Surfak) 240 mg HS PO 01/07/17 21:00 01/12/17 20:38 Acetaminophen (Tylenol) 650 mg Q4H PRN PO TEMPERATURE > 101 F 01/07/17 12:45 01/07/17 22:17 Oxycodone/ Acetaminophen (Percocet 10-325 Mg) 1 tab Q4H PRN PO PAIN SCALE 1-7 01/12/17 21:00 01/13/17 09:10 Objective Remarks GENERAL: Elderly male, upright in bed in nad. SKIN: Warm and dry. HEAD: Normocephalic. EYES: No injection or drainage. NECK: Supple, trachea midline. CARDIOVASCULAR: Regular rate and rhythm RESPIRATORY: diminished at bases. occasional rhonchi. on 1L O2 via NC GASTROINTESTINAL: Abdomen soft, non-tender, nondistended. EXTREMITIES: No cyanosis NEUROLOGICAL: No obvious focal deficit. Awake, alert, and oriented x3. Assessment/Plan Assessment 76y/o male with newly diagnosed SCLC Plan 1. chest tubes removed today. will order port placement 2. will finish staging with MRI brain, bone scan and CT ab/pelvis 3. had extensive discussion with patient about the plan to place port and will likely start chemotherapy inpatient tomorrow. questions answered, emotional support provided. 20 minutes spent at bedside. 4. fs faxed to new patient referrals Janine Aguirre Jan 13, 2017 12:08 Chris Poole MD Jan 13, 2017 19:05
[2017-01-13] MEDS ORDERED: DIATRIZOATE MEGLUM/DIATRIZOATE SOD 9 ML CUP PO ONE (12:30)
[2017-01-13] MEDS ORDERED: IOHEXOL 350 MG/ML 10 ML VIAL (for RAD DIAG) IV ONE (19:04)
--- NOTE | 2017-01-13 19:29 | RADRPT ---
EXAM DATE/TIME: 01/13/2017 18:50 [facility] COMPARISON: CT THORAX W/O CONTRAST, January 10, 2017, 13:41. INDICATIONS : Patient with small cell lung cancer, evaluate for metastases. IV CONTRAST: 70 cc Omnipaque 350 (iohexol) IV ORAL CONTRAST: Prescribed oral contrast ingested. RADIATION DOSE: CTDIvol (mGy) MEDICAL HISTORY : Cardiovascular disease. Hypertension. Carcinoma, lung.pleural effusion SURGICAL HISTORY : None. ENCOUNTER: Initial ACUITY: 1 day PAIN SCALE: 0/10 LOCATION: lower quadrant TECHNIQUE: Volumetric scanning of the abdomen and pelvis was performed. Using automated exposure control and ad justment of the mA and/or kV according to patient size, radiation dose was kept as low as reasonably achievable to obtain optimal diagnostic quality images. DICOM format image data is available electro nically for review and comparison. FINDINGS: LOWER LUNGS: Loculated fluid and consolidation is noted at the left lung base with volume loss. There is underlyin g emphysema. Heart size appears mildly prominent. LIVER: The liver is normal in size and shape with multiple benign appearing small cystic structures the larg est is in the left lobe. The liver is inhomogeneous and there are are also multiple subtle ill-define d low-attenuation areas in both the right and left lobe which are of concern for metastatic disease. There is no dilation of the biliary tree. No calcified gallstones. SPLEEN: Normal size without lesion. PANCREAS: Within normal limits. KIDNEYS: Normal in size and shape. There is no solid mass, stone or hydronephrosis. There are bilateral simpl e appearing cysts. ADRENAL GLANDS: Within normal limits. VASCULAR: There is no aortic aneurysm. BOWEL/MESENTERY: There is mild gaseous distention of the transverse colon. There are air-fluid levels and contrast in the colon. The distal colon is decompressed. There is no transition zone or mass. ABDOMINAL WALL: Within normal limits. RETROPERITONEUM: There is no lymphadenopathy. BLADDER: No wall thickening or mass. REPRODUCTIVE: Within normal limits. INGUINAL: There is no lymphadenopathy or hernia. MUSCULOSKELETAL: Within normal limits for patient age. CONCLUSION: 1. The liver is inhomogeneous with multiple subtle low attenuation areas in the right and left lobe w hich are of concern for metastatic disease. There are apparent simple cysts as well. 2. Known abnormalities in the left lung base again noted with loculated fluid and consolidation. Yovany Tomlin MD on January 13, 2017 at 19:21 Board Certified Radiologist. This report was verified electronically.
[2017-01-13] MEDS ORDERED: GADODIAMIDE PF 287 MG/ML 5 ML VIAL (for RAD MRI) IV ONE (19:53)
--- NOTE | 2017-01-13 20:20 | RADRPT ---
EXAM DATE/TIME: 01/13/2017 19:40 [facility] COMPARISON: No previous studies available for comparison. INDICATIONS : Metastatic lung cancer CONTRAST: 15 cc Omniscan (gadodiamide) IV MEDICAL HISTORY : Hypertension. Carcinoma, lung. Asthma. BPH. SURGICAL HISTORY : Tonsillectomy. ENCOUNTER: Subsequent ACUITY: 1 day PAIN SCORE: 0/10 LOCATION: cranial TECHNIQUE: Multiplanar, multisequence MRI of the brain was performed both prior to and following the administrat ion of paramagnetic contrast. FINDINGS: CEREBRUM: The ventricles are normal for age. No evidence of midline shift, mass lesion, hemorrhage or acute in farction. No extraaxial fluid collections are seen. The pituitary gland and suprasellar cistern are normal in configuration. WHITE MATTER: No significant signal abnormalities are seen in the white matter. POSTERIOR FOSSA: The cerebellum and brainstem are intact. The 4th ventricle is midline. The cerebellopontine angle is unremarkable. The cerebellar tonsils are normal in position. DIFFUSION IMAGING: No focal areas of restricted diffusion are seen. No evidence of acute infarction. EXTRACRANIAL: The visualized portions of the orbits and paranasal sinuses are unremarkable. POST-CONTRAST: No abnormal areas of parenchymal or dural enhancement. No evidence of blood-brain barrier breakdown. CONCLUSION: No evidence of metastatic disease. Yovany Tomlin MD on January 13, 2017 at 20:15 Board Certified Radiologist. This report was verified electronically.
[2017-01-13] MEDS: PANTOPRAZOLE SOD 40 MG DELAYED RELEASE TAB PO SCH (21:55)
[2017-01-13] MEDS: DOCUSATE CALCIUM 240 MG CAP PO SCH (21:55)
[2017-01-13] MEDS: METOPROLOL TARTRATE 50 MG TAB PO SCH (21:55)
[2017-01-13] MEDS: PRAVASTATIN SOD 20 MG TAB PO SCH (21:56)
[2017-01-14] VITALS (23 sets, daily range): BP systolic 126–158; BP diastolic 72–87; PULSE 75–99; RESP 16–20; TEMP 97.1–98.8; O2SAT 92–95
[2017-01-14 06:42] LABS: BICARBONATE 30.3 MEQ/L (21.0-32.0); POTASSIUM 3.1 MEQ/L (3.5-5.1)
[2017-01-14] MEDS: DOCUSATE SODIUM 50 MG/SENNA 8.6 MG TAB PO SCH ×2 (08:27→22:46)
[2017-01-14] MEDS: SODIUM CHLORIDE 0.9% FLUSH 5 ML FLUSH IV FLUSH SCH ×2 (08:27→22:46)
[2017-01-14] MEDS: METOPROLOL TARTRATE 100 MG TAB PO SCH (08:27)
[2017-01-14] MEDS ORDERED: POTASSIUM CHLORIDE 20 MEQ CONTROLLED RELEASE TAB PO ONE (08:30)
--- NOTE | 2017-01-14 10:07 | PD.ONC.PN ---
Subjective Subjective Remarks Afebrile overnight. Patient resting in bed. About to go for port placement. Feeling well. Also waiting to have bone scan today. Objective Data Date Time Temp Pulse Resp B/P Pulse Ox O2 Delivery O2 Flow Rate FiO2 01/14/17 10:00 83 01/14/17 09:00 89 01/14/17 08:00 90 01/14/17 07:00 93 Nasal Cannula 1.50 01/14/17 07:00 98.8 97 20 154/83 92 01/14/17 07:00 97 01/14/17 06:45 98.6 92 16 141/81 92 01/14/17 06:00 92 01/14/17 05:00 84 01/14/17 04:00 86 01/14/17 03:57 97 Nasal Cannula 1.50 01/14/17 03:00 89 01/14/17 02:48 95 Nasal Cannula 1.50 01/14/17 02:00 86 01/14/17 01:00 86 01/14/17 00:37 95 Nasal Cannula 1.50 01/14/17 00:36 98.6 94 16 150/85 95 01/14/17 00:00 86 01/13/17 23:00 89 01/13/17 22:00 94 01/13/17 21:18 93 Nasal Cannula 1.50 01/13/17 21:00 64 01/13/17 20:30 98.3 94 18 150/87 93 01/13/17 18:00 92 01/13/17 17:00 91 01/13/17 16:00 91 01/13/17 15:00 98.6 89 20 129/83 95 01/13/17 15:00 88 01/13/17 15:00 95 Nasal Cannula 3.00 01/13/17 14:00 87 01/13/17 13:00 85 01/13/17 12:13 20 01/13/17 12:00 85 01/13/17 11:00 93 Nasal Cannula 3.00 01/13/17 11:00 98.5 81 20 133/78 93 01/13/17 11:00 79 01/14/17 01/14/17 01/14/17 07:00 15:00 23:00 Intake Total 560 ml Output Total 650 ml Balance -90 ml Result Diagram: 01/10/17 0556 01/14/17 0555 Laboratory Results Laboratory Tests Test 01/14/17 05:55 Sodium Level 142 MEQ/L Potassium Level 3.1 MEQ/L Chloride Level 100 MEQ/L Carbon Dioxide Level 30.3 MEQ/L Anion Gap 12 MEQ/L Blood Urea Nitrogen 13 MG/DL Creatinine 1.14 MG/DL Estimat Glomerular Filtration 62 ML/MIN Rate Random Glucose 75 MG/DL Calcium Level 9.0 MG/DL Culture Results Microbiology Date/Time Procedure Status Source Growth 01/11/17 16:00 Gram Stain - Final Complete Fluid Pleural Fluid 01/11/17 16:00 Body Fluid Culture - Final Complete Fluid Pleural Fluid NO GROWTH IN 72 HRS.--AEROBICALLY OR ... Administered Medications Medications (Trade) Dose Ordered Sig/Jung Route PRN Reason Start Time Stop Time Status Last Admin Dose Admin Senna/Docusate Sodium (Gianna-Colace) 1 tab BID PO 01/03/17 21:00 01/14/17 08:27 Bisacodyl (Dulcolax Supp) 10 mg DAILY PRN RECTAL SEVERE CONSITIPATION 01/03/17 18:45 01/12/17 17:11 Pravastatin Sodium (Pravachol) 20 mg HS PO 01/03/17 22:00 01/13/17 21:56 Metoprolol Tartrate (Lopressor) 50 mg HS PO 01/03/17 22:00 01/13/17 21:55 Amlodipine Besylate (Norvasc) 10 mg DAILY PO 01/04/17 09:00 01/14/17 08:27 Metoprolol Tartrate (Lopressor) 100 mg DAILY@08 PO 01/04/17 08:00 01/14/17 08:27 IV Flush (NS Flush) 2 ml BID IV FLUSH 01/07/17 21:00 01/14/17 08:27 Pantoprazole Sodium (Protonix) 40 mg HS PO 01/07/17 21:00 01/13/17 21:55 Docusate Calcium (Surfak) 240 mg HS PO 01/07/17 21:00 01/13/17 21:55 Acetaminophen (Tylenol) 650 mg Q4H PRN PO TEMPERATURE > 101 F 01/07/17 12:45 01/07/17 22:17 Oxycodone/ Acetaminophen (Percocet 10-325 Mg) 1 tab Q4H PRN PO PAIN SCALE 1-7 01/12/17 21:00 01/13/17 21:56 Objective Remarks GENERAL: Elderly male, sitting up in bed, at bedside. SKIN: Warm and dry. HEAD: Normocephalic. EYES: No injection or drainage. NECK: Supple, trachea midline. CARDIOVASCULAR: Regular rate and rhythm RESPIRATORY: diminished at bases. anterior drake clear. GASTROINTESTINAL: Abdomen soft, non-tender, nondistended. EXTREMITIES: No cyanosis NEUROLOGICAL: No obvious focal deficit. Awake, alert, and oriented x3. Assessment/Plan Assessment 76y/o male with newly diagnosed SCLC Plan 1. port placement today, then will start Carbo/taxol this afternoon 2. bone scan today 3. transfer to [facility] to facilitate chemo administration Attending Statement The exam, history, and the medical decision-making described in the above note were completed with the assistance of the mid-level provider. I reviewed and agree with the findings presented. I attest that I had a [id number] encounter with the patient on the same day, and personally performed and documented my assessment and findings in the medical record. bone scan suggests small volume metastatic disease. I spoke with pathologist, Dr. Ambriz, and the bx is very convincing for small cell cancer. At this point there is nothing else that needs to be done except proceed with treatment. He will receive carbo and VP16 starting tomorrow and anticipate discharge Tuesday or Tuesday if stable. I will need to see him approximately 1 week after discharge with a cbc plat. Situation reviewed with and patient. Janine Aguirre Jan 14, 2017 10:07 Chris Poole MD Jan 14, 2017 19:57
--- NOTE | 2017-01-14 11:56 | HHI.PR ---
Subjective Remarks Follow-up for small cell lung cancer and pleural effusion Patient had chest tube removed yesterday and denies any shortness of breathing. He has no other complaints. He said that he is feeling well. Objective Vitals Vital Signs Date Time Temp Pulse Resp B/P Pulse Ox O2 Delivery O2 Flow Rate FiO2 01/14/17 10:00 83 01/14/17 09:00 89 01/14/17 08:00 90 01/14/17 07:00 93 Nasal Cannula 1.50 01/14/17 07:00 98.8 97 20 154/83 92 01/14/17 07:00 97 01/14/17 06:45 98.6 92 16 141/81 92 01/14/17 06:00 92 01/14/17 05:00 84 01/14/17 04:00 86 01/14/17 03:57 97 Nasal Cannula 1.50 01/14/17 03:00 89 01/14/17 02:48 95 Nasal Cannula 1.50 01/14/17 02:00 86 01/14/17 01:00 86 01/14/17 00:37 95 Nasal Cannula 1.50 01/14/17 00:36 98.6 94 16 150/85 95 01/14/17 00:00 86 01/13/17 23:00 89 01/13/17 22:00 94 01/13/17 21:18 93 Nasal Cannula 1.50 01/13/17 21:00 64 01/13/17 20:30 98.3 94 18 150/87 93 01/13/17 18:00 92 01/13/17 17:00 91 01/13/17 16:00 91 01/13/17 15:00 98.6 89 20 129/83 95 01/13/17 15:00 88 01/13/17 15:00 95 Nasal Cannula 3.00 01/13/17 14:00 87 01/13/17 13:00 85 01/13/17 12:13 20 01/13/17 12:00 85 I/O 01/13/17 01/13/17 01/13/17 01/14/17 01/14/17 01/14/17 07:00 15:00 23:00 07:00 15:00 23:00 Intake Total 480 ml 720 ml 560 ml Output Total 610 ml 850 ml 650 ml Balance -130 ml -130 ml -90 ml Intake Oral 480 ml 720 ml 240 ml IV Total 200 ml Other 120 ml Output Urine Total 600 ml 850 ml 650 ml Chest Tube Drainage Total 10 ml # Bowel Movements 0 Result Diagram: 01/10/17 0556 01/14/17 0555 Objective Remarks GENERAL: in NAD CARDIOVASCULAR: Regular rate and rhythm without murmurs, gallops, or rubs. RESPIRATORY bilateral basilar crackles. No rhonchi or wheezing noted. Chest tubes in place. No accessory muscle use. GASTROINTESTINAL: Abdomen soft, non-tender, nondistended. MUSCULOSKELETAL: No cyanosis, or edema. BACK: Nontender without obvious deformity. No CVA tenderness. Procedures Left thorascopic exploration for drainage of the loculated pleural effusion, lysis of adhesions, pleural biopsies, talc pleurodesis 01/07/17 Medications and IVs Current Medications Sodium Chloride (NS Flush) 2 ml UNSCH PRN IVF FLUSH AFTER USING IV ACCESS; Start 01/03/17 at 16:30; Stop 01/03/17 at 19:20; Status DC Potassium Chloride (KCl) 40 meq ONCE ONCE PO Last administered on 01/03/17 18 :07; Start 01/03/17 at 18:00; Stop 01/03/17 at 18:01; Status DC Sodium Chloride (NS Flush) 2 ml UNSCH PRN IV FLUSH FLUSH AFTER USING IV ACCESS ; Start 01/03/17 at 18:45; Stop 01/07/17 at 12:43; Status DC Sodium Chloride (NS Flush) 2 ml BID IV FLUSH Last administered on 01/07/17 08: 48; Start 01/03/17 at 21:00; Stop 01/07/17 at 12:43; Status DC Acetaminophen (Tylenol) 650 mg Q4H PRN PO Fever, headache, pain 1-4 Last administered on 01/05/17 02:24; Start 01/03/17 at 18:45; Stop 01/07/17 at 12:44 ; Status DC Ondansetron HCl (Zofran Inj) 4 mg Q6H PRN IVP NAUSEA OR VOMITING; Start at 18:45; Stop 01/07/17 at 12:46; Status DC Naloxone HCl (Narcan Inj) 0.4 mg UNSCH PRN IV SEE LABEL COMMENTS; Start at 18:45 Senna/Docusate Sodium (Gianna-Colace) 1 tab BID PO Last administered on 08:27; Start 01/03/17 at 21:00 Magnesium Hydroxide (Milk Of Magnesia Liq) 30 ml Q12H PRN PO MILD - MODERATE CONSTIPATION; Start 01/03/17 at 18:45; Stop 01/07/17 at 12:46; Status DC Sennosides (Senokot) 17.2 mg Q12H PRN PO MODERATE - SEVERE CONSTIPATION; Start 01/03/17 at 18:45 Bisacodyl (Dulcolax Supp) 10 mg DAILY PRN RECTAL SEVERE CONSITIPATION Last administered on 01/12/17 17:11; Start 01/03/17 at 18:45 Lactulose (Lactulose Liq) 30 ml DAILY PRN PO SEVERE CONSITIPATION; Start at 18:45 Pravastatin Sodium (Pravachol) 20 mg HS PO Last administered on 01/13/17 21:56 ; Start 01/03/17 at 22:00 Metoprolol Tartrate (Lopressor) 50 mg HS PO Last administered on 01/13/17 21: 55; Start 01/03/17 at 22:00 Amlodipine Besylate (Norvasc) 10 mg DAILY PO Last administered on 01/14/17 08: 27; Start 01/04/17 at 09:00 Metoprolol Tartrate (Lopressor) 100 mg AC BREAKFAST PO ; Start 01/04/17 at 07: 00; Stop 01/04/17 at 07:00; Status DC Patient Own Medication 1 ea QID INH AST; Start 01/04/17 at 09:00; Status Hold Metoprolol Tartrate (Lopressor) 100 mg DAILY@08 PO Last administered on 08:27; Start 01/04/17 at 08:00 Potassium Bicarb/ Potassium Chloride (K-Lyte Cl Eff) 25 meq ONCE ONCE PO Last administered on 01/04/17 12:54; Start 01/04/17 at 11:00; Stop 01/04/17 at 11:05; Status DC Potassium Chloride (KCl) 30 meq Q4HR PO Last administered on 01/04/17 16:58; Start 01/04/17 at 12:00; Stop 01/04/17 at 16:01; Status DC Sodium Chloride (NS Flush) 2 ml BID IV FLUSH ; Start 01/04/17 at 21:00; Stop at 21:00; Status DC Sodium Chloride 2 ml 2 ml UNSCH PRN IV FLUSH FLUSH AFTER USING IV ACCESS; Start 01/04/17 at 17:15; Stop 01/04/17 at 17:29; Status DC Cefazolin Sodium 500 mg/Sodium Chloride 505 ml @ 0 mls/hr GOLD CHARMER IRRIGATION ; Start 01/04/17 at 17:15; Stop 01/11/17 at 17:14; Status DC Cefazolin Sodium/ Dextrose (Ancef 2 Gm Premix) 50 ml @ 150 mls/hr GOLD CHARMER IV ; Start 01/04/17 at 17:15; Stop 01/11/17 at 17:14; Status DC Chlorhexidine Gluconate (Hibiclens 4% Top Soln) 1 applic G[employer] CHARMER TOPICAL ; Start 01/04/17 at 17:15; Stop 01/11/17 at 17:14; Status DC Potassium Chloride 20 meq 20 meq Q8HR PO Last administered on 01/08/17t 06:25; Start 01/06/17 at 15:00; Stop 01/08/17 at 09:58; Status DC Lactated Ringer's 1,000 ml @ 30 mls/hr Q24H PRN IV SEE LABEL COMMENTS; Start at 05:15; Stop 01/10/17 at 05:14; Status DC Sodium Chloride (NS 500 ml Inj) 500 ml @ 30 mls/hr [id number] PRN IV SEE LABEL COMMENTS; Start 01/07/17 at 05:15; Stop 01/09/17 at 16:43; Status DC Povidone Iodine (Betadine 5% Antisepsis Kit) 1 applic GOLD CHARMER PRN EACH NARE SEE LABEL COMMENTS; Start 01/07/17 at 05:15; Stop 01/10/17 at 05:14; Status DC Chlorhexidine Gluconate (Chlorhexidine 2% Cloth) 3 pack GOLD CHARMER PRN TOPICAL SEE LABEL COMMENTS; Start 01/07/17 at 05:15; Stop 01/10/17 at 05:14; Status DC Insulin Human Regular (NovoLIN R INJ) See Protocol Table ... GOLD CHARMER PRN SQ SEE PROTOCOL TABLE; Start 01/07/17 at 05:15; Stop 01/10/17 at 05:14; Status DC Bupivacaine HCl 30 ml 30 ml STK-MED ONCE .ROUTE Last administered on 01/07/17 11:51; Start 01/07/17 at 10:37; Stop 01/07/17 at 10:38; Status DC Cefazolin Sodium/ Dextrose (Ancef 2 Gm Premix) 50 ml @ As Directed STK-MED ONCE .ROUTE Last administered on 01/07/17 11:36; Start 01/07/17 at 10:37; Stop at 10:38; Status DC Talc (Sterile Talc Aerosol 4 Gm) 4 gm STK-MED ONCE I-PLEURAL Last administered on 01/07/17 12:21; Start 01/07/17 at 12:21; Stop 01/07/17 at 12:26; Status DC Albuterol Sulfate (Albuterol Neb) 2.5 mg Q6HR NEB NEB Last administered on 09:25; Start 01/07/17 at 16:00; Stop 01/11/17 at 16:00; Status DC Albuterol Sulfate (Albuterol Neb) 2.5 mg Q2HR NEB PRN NEB WHEEZING Last administered on 01/10/17 01:01; Start 01/07/17 at 12:45 IV Flush (NS Flush) 2 ml BID IV FLUSH Last administered on 01/14/17 08:27; Start 01/07/17 at 21:00 IV Flush (NS Flush) 2 ml UNSCH PRN IV FLUSH FLUSH AFTER USING IV ACCESS; Start 01/07/17 at 12:45 Miscellaneous Information STAT ONCE OTHER ; Start 01/07/17 at 12:45; Stop at 12:52; Status DC Cefazolin Sodium/ Dextrose (Ancef 1 Gm Premix) 50 ml @ 150 mls/hr Q8H IV ; Start 01/07/17 at 19:00; Stop 01/07/17 at 19:00; Status DC Pantoprazole Sodium (Protonix) 40 mg HS PO Last administered on 01/13/17 21:55 ; Start 01/07/17 at 21:00 Ondansetron HCl (Zofran Inj) 4 mg Q6H PRN IV PUSH NAUSEA OR VOMITING; Start at 12:45 Docusate Calcium (Surfak) 240 mg HS PO Last administered on 01/13/17 21:55; Start 01/07/17 at 21:00 Magnesium Hydroxide (Milk Of Magnesia Liq) 30 ml DAILY PRN PO CONSTIPATION; Start 01/07/17 at 12:45 Acetaminophen (Tylenol) 650 mg Q4H PRN PO TEMPERATURE > 101 F Last administered on 01/07/17 22:17; Start 01/07/17 at 12:45 Insulin Aspart (NovoLOG SUPPLEMENTAL SCALE) Q6HR SQ ; Start 01/07/17 at 18:00; Stop 01/11/17 at 07:59; Status DC Miscellaneous Information 1 ONCE ONCE OTHER ; Start 01/07/17 at 12:45; Stop at 12:50; Status DC Dextrose (D50w (Vial) Inj) 50 ml UNSCH PRN IV HYPOGLYCEMIA-SEE COMMENTS; Start 01/07/17 at 12:45; Stop 01/11/17 at 07:59; Status DC Glucagon (Glucagon Inj) 1 mg UNSCH PRN IV HYPOGLYCEMIA-SEE COMMENTS; Start at 12:45 Oxycodone/ Acetaminophen (Percocet 5-325 Mg) 1 tab Q3H PRN PO PAIN SCALE 3 TO 5 Last administered on 01/11/17 16:50; Start 01/07/17 at 12:45; Stop 01/12/17 at 20:46; Status DC Oxycodone/ Acetaminophen (Percocet 5-325 Mg) 2 tab Q3H PRN PO PAIN SCALE 6 TO 10 Last administered on 01/12/17 18:35; Start 01/07/17 at 12:45; Stop 01/12/17 at 20:46; Status DC Fentanyl Citrate (fentaNYL INJ) 250 mcg STK-MED ONCE .ROUTE ; Start 01/07/17 at 13:12; Stop 01/07/17 at 13:13; Status DC Miscellaneous Information ALL NURSING DEPARTME... UNSCH PRN .XX SEE LABEL COMMENTS; Start 01/07/17 at 13:00; Stop 01/08/17 at 12:59; Status DC Morphine Sulfate 8 mg 8 mg STK-MED ONCE .ROUTE Last administered on 01/07/17 13:53; Start 01/07/17 at 13:53; Stop 01/07/17 at 13:54; Status DC Cefazolin Sodium/ Sodium Chloride (Ancef Inj/NS Inj) 100 ml @ 200 mls/hr Q8H IV Last administered on 01/08/17 10:30; Start 01/07/17 at 18:00; Stop at 10:29; Status DC Potassium Bicarb/ Potassium Chloride 25 meq 25 meq ONCE ONCE PO ; Start at 17:45; Stop 01/07/17 at 17:46; Status DC Sodium Chloride (1/2 NS 1000 ml Inj) 1,000 ml @ 100 mls/hr Q10H IV Last administered on 01/09/17 19:00; Start 01/09/17 at 09:00; Stop 01/10/17 at 04:59 ; Status DC Potassium Chloride (KCl) 40 meq ONCE ONCE PO Last administered on 01/09/17 10 :03; Start 01/09/17 at 09:00; Stop 01/09/17 at 09:02; Status DC Bisacodyl (Dulcolax Supp) 10 mg ONCE ONCE RECTAL ; Start 01/11/17 at 12:15; Stop 01/11/17 at 13:01; Status DC Lidocaine/ Epinephrine 20 ml 20 ml STK-MED ONCE .ROUTE Last administered on 14:45; Start 01/11/17 at 14:45; Stop 01/11/17 at 14:46; Status DC Sodium Bicarbonate (Sodium Bicarbonate 8.4% Inj) 50 ml @ As Directed STK-MED ONCE .ROUTE Last administered on 01/11/17 14:45; Start 01/11/17 at 14:45; Stop 01/11/17 at 14:46; Status DC Fentanyl Citrate (fentaNYL INJ) 250 mcg STK-MED ONCE .ROUTE Last administered on 01/11/17 15:55; Start 01/11/17 at 15:14; Stop 01/11/17 at 15:15; Status DC Midazolam HCl (Versed Inj) 5 mg STK-MED ONCE .ROUTE Last administered on 15:55; Start 01/11/17 at 15:14; Stop 01/11/17 at 15:15; Status DC Oxycodone/ Acetaminophen (Percocet 10-325 Mg) 1 tab Q4H PRN PO PAIN SCALE 1-7 Last administered on 01/13/17 21:56; Start 01/12/17 at 21:00 Oxycodone/ Acetaminophen (Percocet 10-325 Mg) 2 tab Q4H PRN PO PAIN SCALE 8-10 ; Start 01/12/17 at 21:00 Diatrizoate Meglum/ Diatrizoate Sod 18 ml 18 ml ONCE ONCE PO Last administered on 01/13/17 13:32; Start 01/13/17 at 12:30; Stop 01/13/17 at 12:31 ; Status DC Cefazolin Sodium 1000 mg/Sodium Chloride 100 ml @ 200 mls/hr GOLD CHARMER IV ; Start 01/14/17 at 16:45; Stop 01/17/17 at 16:44 Vancomycin HCl/ Sodium Chloride (Vancomycin Inj/ NS 250 ml Inj) 250 ml @ 250 mls/hr GOLD CHARMER IV ; Start 01/14/17 at 16:45; Stop 01/17/17 at 16:44 Iohexol (Omnipaque 350 Inj) 70 ml STK-MED ONCE IV Last administered on 19:04; Start 01/13/17 at 19:04; Stop 01/13/17 at 19:05; Status DC Gadodiamide (Omniscan Pf Inj) 15 ml STK-MED ONCE IV ; Start 01/13/17 at 19:53; Stop 01/13/17 at 19:54; Status DC Potassium Chloride (KCl) 40 meq STAT ONCE PO Last administered on 01/14/17 09 :04; Start 01/14/17 at 08:30; Stop 01/14/17 at 08:34; Status DC A/P Problem List: (1) Pleural effusion ICD Code: J90 Status: Acute (2) Hypoxia ICD Code: R09.02 Status: Acute (3) Hypokalemia ICD Code: E87.6 Status: Acute Assessment and Plan Mr. Austin 76 year old male patient with hypoxia and recurrent/persistent pleural effusion. Newly diagnosed small cell lung cancer -Oncologist following. -MRI brain negative for any metastases. CT scan of the abdomen shows possible liver metastases. -Patient scheduled for port placement today and bone scan. He will he be transferred to the seventh floor, which is where they will start chemotherapy. - Carbo/taxol to be given this afternoon Acute respiratory failure/ Left-sided pleural effusion - On nasal cannula oxygen. Continues to improve. CT thorax/chest shows loculated pleural effusions with pleural masses. Pulmonology ad CT surgery consults appreciated. Status post left thorascopic exploration for drainage of the loculated pleural effusion, lysis of adhesions, pleural biopsies, talc pleurodesis 01/07/17. - oxygen and nebs as needed. - Cytology and cultures negative. Pathology shows small cell carcinoma. -Repeat CT of the chest showed a single dominant residual loculated pleural fluid collection posteriorly in the left mid to upper chest. Basilar consolidation with some degree of cavitary change. Minimal non-loculated basilar pleural fluid. -Left chest tube placed yesterday by IR on 01/11/2017. -Chest tubes removed on 01/13/2017. Patient was clear by cardiothoracic surgeon. Acute renal failure -Improved with IV fluids. Good urine output. -Renal ultrasound shows medical renal disease. There is no obstruction shown. -Most likely secondary to hypoperfusion. -Continue to monitor. -Avoid nephrotoxins. -Strict ins and outs. Hypokalemia The patient says he always has low potassium. - replete and monitor. Hyperglycemia Glucose level slightly elevated. He was told he has borderline diabetes. - ISS. - Hemoglobin A1c 5.7. Full code. SCDs. Discharge Planning Patient will be transferred to the oncology floor where he will get chemotherapy. Gloria Roy MD Jan 14, 2017 11:56
--- NOTE | 2017-01-14 12:49 | RADRPT ---
EXAM DATE/TIME: 01/14/2017 12:03 [facility] COMPARISON: CT GUIDED CHEST TUBE PLACEMENT LEFT, January 11, 2017, 15:32. CHEST EXPIRATION ONLY, January 11, 2017, 16: 09. CHEST PA & LAT, January 10, 2017, 5:08. INDICATIONS : Pleural effusion. MEDICAL HISTORY : Hypertension. Carcinoma, lung. Coronary artery disease. SURGICAL HISTORY : Thoracotomy. Thoracentesis. ENCOUNTER: Subsequent ACUITY: 1 month PAIN SCORE: 5/10 LOCATION: Left chest FINDINGS: Chest tubes have been removed. There is no pneumothorax. Persistent consolidation changes are prese nt in the left base. The right lung is clear. The heart and pulmonary vascularity are normal. Degen erative changes are seen about both shoulders. CONCLUSION: There is no pneumothorax. Enoch De La Paz MD FACR on January 14, 2017 at 12:45 Board Certified Radiologist. This report was verified electronically.
[2017-01-14] MEDS ORDERED: VANCOMYCIN INJ 1,000 MG in SODIUM CHLOR 0.9% 250 ML INJ 250 ML IV SCH (13:36)
[2017-01-14] MEDS ORDERED: MIDAZOLAM HCL 2 MG/2 ML VIAL ONE (14:25)
[2017-01-14] MEDS ORDERED: ceFAZolin 2 GM PREMIX 50 ML IV ONE (14:30)
[2017-01-14] MEDS ORDERED: LIDOCAINE 1%/EPINEPHrine 1:100,000 SOLN 20 ML VIAL ONE (14:31)
--- NOTE | 2017-01-14 15:10 | RADRPT ---
EXAM DATE/TIME: 01/14/2017 12:11 [facility] COMPARISON: No previous studies available for comparison. PRIOR BONE SCANS: No correlative bone scan available for comparison. INDICATIONS : Metastatic disease. Small cell lung cancer. DOSE: 31 mCi Tc99m MDP IV MEDICAL HISTORY : Hypertension. Chronic obstructive pulmonary disease. Carcinoma, lung. SURGICAL HISTORY : None. ENCOUNTER: Initial ACUITY: 1 week PAIN SCALE: 0/10 LOCATION: chest TECHNIQUE: Three hours post intravenous administration of radiotracer, whole body bone scan imaging was performe d. FINDINGS: Delayed whole-body scanning reveals mildly increased elongated radiotracer uptake involving the poste rior lateral right sixth rib. There are very subtle areas of activity identified involving the left posterior 10th 11th ribs. There punctate foci of increased uptake involving the anterior right seventh costochondral junction r egion and anterior lateral left seventh rib. Mild degenerative type uptake present in the cervical and thoracic Spine. CONCLUSION: Areas of focal uptake involving ribs as described. The most suspicious uptake involves the posterolat eral right sixth rib. Jairo Mosley MD on January 14, 2017 at 14:57 Board Certified Radiologist. This report was verified electronically.
--- NOTE | 2017-01-14 15:27 | PD.RAD ---
Post Procedure Progress Note Pre Procedure Diagnosis: (1) Small cell lung carcinoma Post Procedure Diagnosis: (1) Small cell lung carcinoma Procedure Date: Jan 14, 2017 Supervising Radiologist: Jorge Matute Proceduralist/Assist: RT Gildardo(R)() Anesthesia: Conscious Sedation Plan of Activity Patient to Unit: [facility] Patient Condition: Good Additional Comments: tip at [facility] See PACS Report for procedural detail/treatment Jorge Matute MD Jan 14, 2017 15:27
--- NOTE | 2017-01-14 15:46 | RADRPT ---
EXAM DATE/TIME: 01/14/2017 15:07 [facility] COMPARISON: No previous studies available for comparison. INDICATIONS : Patient is in need of placemen tof an Infusaport for chemotherapy treatment of small cell lung carcin radu. MEDICAL HISTORY : History of left pleural effusion, HTN, hyperlipidemia, CAD, BPH, asthma, head trauma, colonic polyps. SURGICAL HISTORY : History of thoracentesis, cardiac catheterization, tonsillectomy, colonoscopy. ENCOUNTER: Initial ACUITY: 1 week PAIN SCORE: 0/10 FLUORO TIME: 0.25 minutes IMAGE SERIES: 0 SEDATION TIME: 30 minutes ACCESS: Right internal jugular vein SEDATION: 1.) 1.5 mg midazolam (Versed) IV 2.) 75 mcg fentanyl (Sublimaze) IV Prophylactic antibiotics were administered with appropriate pre-procedure timing. Vancomycin within 2 hours of procedure, Ancef (or alternative) within 1 hour of procedure. DEVICE: 1. 8 Kinyarwanda Smart Port PROCEDURE : 1. Continuous pulse oximetry and EKG monitoring. 2. Intravenous conscious sedation. 3. Ultrasound guidance for venous access. 4. Fluoroscopic guided implantable central venous port placement. The patient was placed supine. The neck was prepped in sterile fashion. Full sterile technique was u sed, including cap, mask, sterile gloves and gown, and a large sterile sheet. Hand hygiene and 2% ch lorhexidine Betadine was utilized per protocol for cutaneous antisepsis with appropriate dry time for site. The skin and subcutaneous tissues were infiltrated with local anesthetic solution. Under direct ultrasound guidance, central venous access was accomplished in the targeted vessel. The ultrasound images depicting access guidance were stored and saved to PACS for permanent record. A s ubcutaneous pocket was created using blunt dissection. The port was introduced to the pocket. The c atheter tubing was fed through a subcutaneous tunnel to the venotomy site. The catheter tubing was c ut to a suitable length and then was introduced through a valved Peel-Away sheath and positioned with catheter tubing tip at the cavo-atrial junction level. The pocket incision was closed with subcutic ular Vicryl suture. Steri-Strips were applied. The port was flushed and locked with heparin solutio n per protocol. Sterile dressing was applied to the site. The patient tolerated the procedure well. Conscious sedation was performed with the prescribed dosages and duration as above in the presence of an independent trained radiology nurse to assist in the monitoring of the patient. EKG and oximetry remained stable throughout the procedure. The patient tolerated the procedure well and there were no complications. The patient was sent to post anesthesia recovery in stable condition. CONCLUSION: Uncomplicated ultrasound and fluoroscopic guided implanted central venous port catheter placement as described in detail above. An 8 Kinyarwanda Power port was placed. Jorge Matute MD on January 14, 2017 at 15:44 Board Certified Radiologist. This report was verified electronically.
[2017-01-14] MEDS: METOPROLOL TARTRATE 50 MG TAB PO SCH (22:45)
[2017-01-14] MEDS: PANTOPRAZOLE SOD 40 MG DELAYED RELEASE TAB PO SCH (22:45)
[2017-01-14] MEDS: PRAVASTATIN SOD 20 MG TAB PO SCH (22:50)
[2017-01-14] MEDS: DOCUSATE CALCIUM 240 MG CAP PO SCH (22:50)
[2017-01-15] VITALS (8 sets, daily range): BP systolic 131–152; BP diastolic 73–83; PULSE 75–95; RESP 18–19; TEMP 94–98.7; O2SAT 93–97
[2017-01-15] MEDS: SODIUM CHLORIDE 0.9% FLUSH 5 ML FLUSH IV FLUSH SCH ×2 (09:00→19:54)
[2017-01-15] MEDS: METOPROLOL TARTRATE 100 MG TAB PO SCH (09:25)
[2017-01-15] MEDS: DOCUSATE SODIUM 50 MG/SENNA 8.6 MG TAB PO SCH ×2 (09:25→19:49)
--- NOTE | 2017-01-15 10:46 | PD.ONC.PN ---
Subjective Subjective Remarks Afebrile overnight Shortness of breath unchanged Ready to begin chemotherapy today Objective Data Date Time Temp Pulse Resp B/P Pulse Ox O2 Delivery O2 Flow Rate FiO2 01/15/17 10:13 96 Nasal Cannula 2.00 01/15/17 09:20 Nasal Cannula 3.00 01/15/17 07:00 94.0 85 19 150/80 94 01/15/17 04:00 98.3 84 18 148/83 93 01/15/17 00:00 98.7 90 18 152/73 94 01/14/17 22:40 95 Nasal Cannula 3.00 01/14/17 20:16 91 01/14/17 20:00 98.2 99 18 153/87 95 01/14/17 16:22 97.1 95 18 140/72 92 01/14/17 15:35 93 18 158/85 92 01/14/17 15:20 98.6 94 20 148/80 92 01/14/17 12:50 97.6 82 20 126/72 92 01/14/17 12:50 92 Nasal Cannula 3.00 01/14/17 11:51 98.4 85 18 152/87 93 01/14/17 11:51 93 Nasal Cannula 1.50 01/14/17 11:41 93 Nasal Cannula 2.00 01/14/17 11:00 75 01/15/17 01/15/17 01/15/17 07:00 15:00 23:00 Intake Total 960 ml Balance 960 ml Result Diagram: 01/14/17 0555 Administered Medications Medications (Trade) Dose Ordered Sig/Jung Route PRN Reason Start Time Stop Time Status Last Admin Dose Admin Senna/Docusate Sodium (Gianna-Colace) 1 tab BID PO 01/03/17 21:00 01/15/17 09:25 Bisacodyl (Dulcolax Supp) 10 mg DAILY PRN RECTAL SEVERE CONSITIPATION 01/03/17 18:45 01/12/17 17:11 Pravastatin Sodium (Pravachol) 20 mg HS PO 01/03/17 22:00 01/14/17 22:50 Metoprolol Tartrate (Lopressor) 50 mg HS PO 01/03/17 22:00 01/14/17 22:45 Amlodipine Besylate (Norvasc) 10 mg DAILY PO 01/04/17 09:00 01/15/17 09:25 Metoprolol Tartrate (Lopressor) 100 mg DAILY@08 PO 01/04/17 08:00 01/15/17 09:25 IV Flush (NS Flush) 2 ml BID IV FLUSH 01/07/17 21:00 01/15/17 09:00 Pantoprazole Sodium (Protonix) 40 mg HS PO 01/07/17 21:00 01/14/17 22:45 Docusate Calcium (Surfak) 240 mg HS PO 01/07/17 21:00 01/13/17 21:55 Acetaminophen (Tylenol) 650 mg Q4H PRN PO TEMPERATURE > 101 F 01/07/17 12:45 01/07/17 22:17 Oxycodone/ Acetaminophen (Percocet 10-325 Mg) 1 tab Q4H PRN PO PAIN SCALE 1-7 01/12/17 21:00 01/13/17 21:56 Objective Remarks GENERAL: Elderly male asleep in no distress. SKIN: Warm and dry. HEAD: Normocephalic. EYES: No injection or drainage. NECK: Supple, trachea midline. CARDIOVASCULAR: + S1/S2. No murmur. RESPIRATORY: Clear but diminished anteriorly. On 3 L nasal cannula GASTROINTESTINAL: Abdomen soft, non-tender, nondistended. EXTREMITIES: No cyanosis. No edema. NEUROLOGICAL: No obvious focal deficit. Awake, alert, and oriented x3. Assessment/Plan Problem List: (1) Small cell lung carcinoma Status: Acute Plan: -- Newly diagnosed -- Start chemotherapy while inpatient Assessment 76y/o male with newly diagnosed SCLC Plan 1. Patient had [id number] placed to right upper chest yesterday 2. Bone scan showed uptake to the right sixth rib. 3. Plan to start chemotherapy with etoposide and carboplatin today. 4. Monitor labs Attending Statement The exam, history, and the medical decision-making described in the above note were completed with the assistance of the mid-level provider. I reviewed and agree with the findings presented. I attest that I had a [id number] encounter with the patient on the same day, and personally performed and documented my assessment and findings in the medical record. No significant SOB or pain. Plan to start Carbo/etoposide today. Pt has has questions regarding chemo which were answered. Regina Del Cid Jan 15, 2017 10:46 Amrik Osborn MD Jan 15, 2017 11:32
--- NOTE | 2017-01-15 12:06 | HHI.PR ---
Subjective Remarks Follow-up for small cell cancer Patient seen with significant other at bedside. Port placed yesterday. For chemotherapy starting today. Shortness of breath at baseline, mild lower back pain. No fever. Objective Vitals Vital Signs Date Time Temp Pulse Resp B/P Pulse Ox O2 Delivery O2 Flow Rate FiO2 01/15/17 10:13 96 Nasal Cannula 2.00 01/15/17 09:20 Nasal Cannula 3.00 01/15/17 07:00 94.0 85 19 150/80 94 01/15/17 04:00 98.3 84 18 148/83 93 01/15/17 00:00 98.7 90 18 152/73 94 01/14/17 22:40 95 Nasal Cannula 3.00 01/14/17 20:16 91 01/14/17 20:00 98.2 99 18 153/87 95 01/14/17 16:22 97.1 95 18 140/72 92 01/14/17 15:35 93 18 158/85 92 01/14/17 15:20 98.6 94 20 148/80 92 01/14/17 12:50 97.6 82 20 126/72 92 01/14/17 12:50 92 Nasal Cannula 3.00 I/O 01/14/17 01/14/17 01/14/17 01/15/17 01/15/17 01/15/17 07:00 15:00 23:00 07:00 15:00 23:00 Intake Total 560 ml 240 ml 960 ml Output Total 650 ml Balance -90 ml 240 ml 960 ml Intake Oral 240 ml 240 ml 960 ml IV Total 200 ml Other 120 ml Output Urine Total 650 ml # Voids 3 Result Diagram: 01/14/17 0555 Imaging Last Impressions Chest X-Ray 01/14/17 0600 Signed Impressions: Service Date/Time: Saturday, January 14, 2017 12:03 - CONCLUSION: There is no pneumothorax. Enoch De La Paz MD FACR Port Line Insertion 01/14/17 0000 Signed Impressions: Service Date/Time: Saturday, January 14, 2017 15:07 - CONCLUSION: Uncomplicated ultrasound and fluoroscopic guided implanted central venous port catheter placement as described in detail above. An 8 [place] Power port was placed. Jorge Matute MD Bone Scan Nuclear Medicine 01/14/17 0000 Signed Impressions: Service Date/Time: Saturday, January 14, 2017 12:11 - CONCLUSION: Areas of focal uptake involving ribs as described. The most suspicious uptake involves the posterolateral right sixth rib. Jairo Mosley MD Brain MRI 01/13/17 0000 Signed Impressions: Service Date/Time: December 19:40 - CONCLUSION: No evidence of metastatic disease. Yovany Tomlin MD Abdomen/Pelvis CT 01/13/17 0000 Signed Impressions: Service Date/Time: December 18:50 - CONCLUSION: 1. The liver is inhomogeneous with multiple subtle low attenuation areas in the right and left lobe which are of concern for metastatic disease. There are apparent simple cysts as well. 2. Known abnormalities in the left lung base again noted with loculated fluid and consolidation. Yovany Tomlin MD Chest Tube Insertion 01/11/17 0000 Signed Impressions: Service Date/Time: Wednesday, January 11, 2017 15:32 - CONCLUSION: Uncomplicated 8 [place] nonlocking pigtail chest tube placement as above. Kelvin Olmstead MD Chest CT 01/10/17 0000 Signed Impressions: Service Date/Time: Tuesday, January 10, 2017 13:41 - CONCLUSION: Normal left chest surgery with thoracostomy tubes in place. There is a single dominant residual loculated pleural fluid collection posteriorly in the left mid to upper chest. Basilar consolidation with some degree of cavitary change. Minimal non- loculated basilar pleural fluid Jairo Mosley MD Renal Ultrasound 01/09/17 0000 Signed Impressions: Service Date/Time: Monday, January 09, 2017 13:36 - CONCLUSION: 1. Echogenic kidneys typically seen with medical renal disease. Hydronephrosis is not seen on either side. 2. Possible mild stripping renal stones seen bilaterally. 3. Bilateral renal cysts. 4. Impression on the bladder floor from the prostate. Jairo Crowley MD Objective Remarks GENERAL: in NAD CARDIOVASCULAR: Regular rate and rhythm without murmurs, gallops, or rubs. RESPIRATORY bilateral basilar crackles. No rhonchi or wheezing noted. No accessory muscle use. GASTROINTESTINAL: Abdomen soft, non-tender, nondistended. MUSCULOSKELETAL: No cyanosis, or edema. BACK: Nontender without obvious deformity. No CVA tenderness. Alert awake and oriented 3. Procedures Left thorascopic exploration for drainage of the loculated pleural effusion, lysis of adhesions, pleural biopsies, talc pleurodesis 01/07/17 A/P Problem List: (1) Pleural effusion ICD Code: J90 Status: Acute (2) Hypoxia ICD Code: R09.02 Status: Acute (3) Hypokalemia ICD Code: E87.6 Status: Acute Assessment and Plan Mr. Austin 76 year old male patient with hypoxia and recurrent/persistent pleural effusion. Newly diagnosed small cell lung cancer -Oncologist following, port placed 01/14/17, for induction chemotherapy starting today. Bone scan possibly with metastatic disease in the rib area. MRI brain negative for any metastases. CT scan of the abdomen shows possible liver metastases. Acute respiratory failure/ Left-sided pleural effusion - On nasal cannula oxygen. Continues to improve. Try to wean from oxygen. CT thorax/chest shows loculated pleural effusions with pleural masses. Pulmonology ad CT surgery consults appreciated. Status post left thorascopic exploration for drainage of the loculated pleural effusion, lysis of adhesions, pleural biopsies, talc pleurodesis 01/07/17. Cytology and cultures negative. Pathology shows small cell carcinoma.Repeat CT of the chest showed a single dominant residual loculated pleural fluid collection posteriorly in the left mid to upper chest. Basilar consolidation with some degree of cavitary change. Minimal non-loculated basilar pleural fluid. -Left chest tube placed by IR on 01/11/2017 and removed 01/13/17. Cleared by cardiothoracic surgery. Hypertension-controlled, continue Norvasc and metoprolol. Increase metoprolol if still elevated. Acute renal failure -Improved with IV fluids. Good urine output. -Renal ultrasound shows medical renal disease. There is no obstruction shown. Hypokalemia The patient says he always has low potassium. - replete and monitor. Hyperglycemia Glucose level slightly elevated. He was told he has borderline diabetes. - ISS. - Hemoglobin A1c 5.7. Full code. SCDs. Heparin for DVT prophylaxis Discharge Planning Wean from oxygen, discharge Tuesday or Tuesday after induction chemotherapy. Bertrand Hernandez MD Jan 15, 2017 12:05
[2017-01-15] MEDS: ACETAMINOPHEN 325 MG TAB PO PRN (12:35)
[2017-01-15] MEDS: DEXAMETHASONE INJ 20 MG in SODIUM CHLORIDE 0.9% INJ 50 ML IV ONE ×2 (13:30→15:15)
[2017-01-15] MEDS: GRANISETRON HCL 1 MG/ML VIAL IV PUSH ONE ×2 (13:30→15:15)
[2017-01-15] MEDS ORDERED: CARBOPLATIN IV ONE (14:00)
[2017-01-15] MEDS ORDERED: SODIUM CHLOR 0.9% IV ONE (14:00)
[2017-01-15 14:30] LABS: AUTOMATED NEUTROPHIL # 4.9 TH/MM3 (1.8-7.7); BASOPHIL % 0.4 % (0.0-2.0); EOSINOPHIL # 0.1 TH/MM3 (0-0.4); EOSINOPHIL % 1.2 % (0.0-4.0); HEMATOCRIT 36.3 % (39.0-51.0); LYMPH % 9.6 % (9.0-44.0); LYMPHOCYTE # 0.6 TH/MM3 (1.0-4.8); MEAN CELL VOLUME 88.2 FL (80.0-100.0); MEAN CORPUSCULAR HGB CONC 35.1 % (32.0-36.0); MONO % 12.2 % (0.0-8.0); NEUT % 76.6 % (16.0-70.0); PLATELET COUNT 280 TH/MM3 (150-450); RED BLOOD COUNT 4.12 MIL/MM3 (4.50-5.90); RED CELL DISTRIBUTION WIDTH 13.5 % (11.6-17.2); WHITE BLOOD COUNT 6.4 TH/MM3 (4.0-11.0)
[2017-01-15 14:32] LABS: HEMO FLAGS AUTO DIFF
[2017-01-15 14:43] LABS: BICARBONATE 33.7 MEQ/L (21.0-32.0)
[2017-01-15 15:03] LABS: SCAN/DIFF AUTO DIFF CONFIRMED
[2017-01-15] MEDS: SODIUM CHLOR 0.9% 250 ML INJ 250 ML IV SCH (15:43)
[2017-01-15] MEDS: NS IV SCH (16:55)
[2017-01-15] MEDS: ETOPOSIDE IV SCH (16:55)
[2017-01-15] MEDS: METOPROLOL TARTRATE 50 MG TAB PO SCH (19:49)
[2017-01-15] MEDS: PRAVASTATIN SOD 20 MG TAB PO SCH (19:49)
[2017-01-15] MEDS: HEPARIN SODIUM - SQ 10,000 UNITS/ML VIAL SQ SCH (19:49)
[2017-01-15] MEDS: DOCUSATE CALCIUM 240 MG CAP PO SCH (19:49)
[2017-01-15] MEDS: PANTOPRAZOLE SOD 40 MG DELAYED RELEASE TAB PO SCH (19:49)
[2017-01-15] MEDS: SODIUM CHLORIDE 0.9% FLUSH 10 ML FLUSH IVF PRN (19:53)
[2017-01-16] VITALS (8 sets, daily range): BP systolic 128–162; BP diastolic 82–91; PULSE 73–82; RESP 16–18; TEMP 96.6–98.2; O2SAT 94–96
[2017-01-16 04:28] LABS: AUTOMATED NEUTROPHIL # 4.7 TH/MM3 (1.8-7.7); BASOPHIL % 0.2 % (0.0-2.0); HEMATOCRIT 41.2 % (39.0-51.0); HEMO FLAGS DIFF FINAL; LYMPH % 8.8 % (9.0-44.0); LYMPHOCYTE # 0.5 TH/MM3 (1.0-4.8); MEAN CELL VOLUME 89.8 FL (80.0-100.0); MEAN CORPUSCULAR HEMOGLOBIN 30.4 PG (27.0-34.0); MEAN CORPUSCULAR HGB CONC 33.9 % (32.0-36.0); MONO % 2.7 % (0.0-8.0); NEUT % 88.3 % (16.0-70.0); PLATELET COUNT 315 TH/MM3 (150-450); RED BLOOD COUNT 4.59 MIL/MM3 (4.50-5.90); RED CELL DISTRIBUTION WIDTH 13.5 % (11.6-17.2); WHITE BLOOD COUNT 5.3 TH/MM3 (4.0-11.0)
[2017-01-16 04:53] LABS: ANION GAP 9 MEQ/L (5-15); AST (GOT) 32 U/L (15-37); BICARBONATE 27.6 MEQ/L (21.0-32.0); BLOOD UREA NITROGEN 17 MG/DL (7-18); CHLORIDE 100 MEQ/L (98-107); GLOMERULAR FILTRATION RATE 62 ML/MIN (>89); POTASSIUM 3.6 MEQ/L (3.5-5.1); SODIUM (NA) 137 MEQ/L (136-145)
[2017-01-16 04:57] LABS: ALKALINE PHOSPHATASE 368 U/L (45-117); ALT (GPT) 18 U/L (12-78); TOTAL BILIRUBIN ADULT 0.6 MG/DL (0.2-1.0)
[2017-01-16] MEDS: HEPARIN SODIUM - SQ 10,000 UNITS/ML VIAL SQ SCH ×2 (09:00→20:46)
[2017-01-16] MEDS: METOPROLOL TARTRATE 100 MG TAB PO SCH (09:00)
[2017-01-16] MEDS: SODIUM CHLORIDE 0.9% FLUSH 5 ML FLUSH IV FLUSH SCH ×2 (09:00→20:46)
[2017-01-16] MEDS: DOCUSATE SODIUM 50 MG/SENNA 8.6 MG TAB PO SCH ×2 (09:15→21:00)
--- NOTE | 2017-01-16 10:04 | HHI.PR ---
Subjective Remarks Follow-up for lung cancer No overnight events, breathing is stable, ambulating without any problems. Pain is manageable. No fever. Objective Vitals Vital Signs Date Time Temp Pulse Resp B/P Pulse Ox O2 Delivery O2 Flow Rate FiO2 01/16/17 09:23 Nasal Cannula 2.50 01/16/17 09:03 94 Nasal Cannula 3.00 01/16/17 08:00 97.0 73 16 158/91 96 01/16/17 04:00 75 01/16/17 04:00 98.2 81 18 162/84 95 01/16/17 00:02 95 Nasal Cannula 3.00 01/16/17 00:00 75 01/16/17 00:00 96.9 78 16 147/88 95 01/15/17 21:00 95 01/15/17 21:00 Nasal Cannula 2.00 01/15/17 20:00 97.7 92 18 149/74 94 01/15/17 16:17 Nasal Cannula 2.00 01/15/17 16:00 97.8 75 18 147/82 96 01/15/17 12:00 96.4 78 18 131/76 97 01/15/17 10:13 96 Nasal Cannula 2.00 I/O 01/15/17 01/15/17 01/15/17 01/16/17 01/16/17 01/16/17 07:00 15:00 23:00 07:00 15:00 23:00 Intake Total 960 ml 360 ml 480 ml Output Total 300 ml 925 ml Balance 960 ml 360 ml -300 ml -445 ml Intake Oral 960 ml 360 ml 480 ml Output Urine Total 300 ml 925 ml # Voids 3 3 Result Diagram: 01/16/17 0350 01/16/17 0350 Objective Remarks GENERAL: in NAD CARDIOVASCULAR: Regular rate and rhythm without murmurs, gallops, or rubs. RESPIRATORY bilateral basilar crackles. No rhonchi or wheezing noted. No accessory muscle use. GASTROINTESTINAL: Abdomen soft, non-tender, nondistended. MUSCULOSKELETAL: No cyanosis, or edema. BACK: Nontender without obvious deformity. No CVA tenderness. Alert awake and oriented 3. Procedures Left thorascopic exploration for drainage of the loculated pleural effusion, lysis of adhesions, pleural biopsies, talc pleurodesis 01/07/17 A/P Problem List: (1) Pleural effusion ICD Code: J90 Status: Acute (2) Hypoxia ICD Code: R09.02 Status: Acute (3) Hypokalemia ICD Code: E87.6 Status: Acute Assessment and Plan Mr. Austin 76 year old male patient with hypoxia and recurrent/persistent pleural effusion. Newly diagnosed small cell lung cancer -Oncologist following, port placed 01/14/17, started induction chemotherapy 08/03. Bone scan possibly with metastatic disease in the rib area. MRI brain negative for any metastases. CT scan of the abdomen shows possible liver metastases. Acute respiratory failure/ Left-sided pleural effusion - On nasal cannula oxygen. Continues to improve. Try to wean from oxygen.CT thorax/chest shows loculated pleural effusions with pleural masses. Pulmonology ad CT surgery consults appreciated. Status post left thorascopic exploration for drainage of the loculated pleural effusion, lysis of adhesions, pleural biopsies, talc pleurodesis 01/07/17. Cytology and cultures negative. Pathology shows small cell carcinoma.Repeat CT of the chest showed a single dominant residual loculated pleural fluid collection posteriorly in the left mid to upper chest. Basilar consolidation with some degree of cavitary change. Minimal non-loculated basilar pleural fluid. -Left chest tube placed by IR on 01/11/2017 and removed 01/13/17. Cleared by cardiothoracic surgery. Hypertension-controlled, continue Norvasc, increase metoprolol. Acute renal failure -Improved with IV fluids. Good urine output. -Renal ultrasound shows medical renal disease. There is no obstruction shown. Hypokalemia The patient says he always has low potassium. - replete and monitor. Hyperglycemia Glucose level slightly elevated. He was told he has borderline diabetes. - ISS. - Hemoglobin A1c 5.7. Full code. SCDs. Heparin for DVT prophylaxis Discharge Planning Wean from oxygen, discharge Tuesday or Tuesday after induction chemotherapy to home. Bertrand Hrenandez MD Jan 16, 2017 10:04
[2017-01-16] MEDS ORDERED: PILL SPLITTER OTHER PRN (10:45)
--- NOTE | 2017-01-16 11:10 | PD.ONC.PN ---
Subjective Subjective Remarks Afebrile overnight Tolerated first chemotherapy well No acute complaints Objective Data Date Time Temp Pulse Resp B/P Pulse Ox O2 Delivery O2 Flow Rate FiO2 01/16/17 09:23 Nasal Cannula 2.50 01/16/17 09:03 94 Nasal Cannula 3.00 01/16/17 08:00 97.0 73 16 158/91 96 01/16/17 04:00 75 01/16/17 04:00 98.2 81 18 162/84 95 01/16/17 00:02 95 Nasal Cannula 3.00 01/16/17 00:00 75 01/16/17 00:00 96.9 78 16 147/88 95 01/15/17 21:00 95 01/15/17 21:00 Nasal Cannula 2.00 01/15/17 20:00 97.7 92 18 149/74 94 01/15/17 16:17 Nasal Cannula 2.00 01/15/17 16:00 97.8 75 18 147/82 96 01/15/17 12:00 96.4 78 18 131/76 97 01/16/17 01/16/17 01/16/17 07:00 15:00 23:00 Intake Total 480 ml 480 ml Output Total 925 ml Balance -445 ml 480 ml Result Diagram: 01/16/17 0350 01/16/17 0350 Laboratory Results Laboratory Tests Test 01/15/17 01/16/17 14:05 03:50 White Blood Count 6.4 TH/MM3 5.3 TH/MM3 Red Blood Count 4.12 MIL/MM3 4.59 MIL/MM3 Hemoglobin 12.8 GM/DL 14.0 GM/DL Hematocrit 36.3 % 41.2 % Mean Corpuscular Volume 88.2 FL 89.8 FL Mean Corpuscular Hemoglobin 31.0 PG 30.4 PG Mean Corpuscular Hemoglobin 35.1 % 33.9 % Concent Red Cell Distribution Width 13.5 % 13.5 % Platelet Count 280 TH/MM3 315 TH/MM3 Mean Platelet Volume 7.6 FL 7.6 FL Neutrophils (%) (Auto) 76.6 % 88.3 % Lymphocytes (%) (Auto) 9.6 % 8.8 % Monocytes (%) (Auto) 12.2 % 2.7 % Eosinophils (%) (Auto) 1.2 % 0.0 % Basophils (%) (Auto) 0.4 % 0.2 % Neutrophils # (Auto) 4.9 TH/MM3 4.7 TH/MM3 Lymphocytes # (Auto) 0.6 TH/MM3 0.5 TH/MM3 Monocytes # (Auto) 0.8 TH/MM3 0.1 TH/MM3 Eosinophils # (Auto) 0.1 TH/MM3 0.0 TH/MM3 Basophils # (Auto) 0.0 TH/MM3 0.0 TH/MM3 CBC Comment AUTO DIFF DIFF FINAL Differential Comment AUTO DIFF CONFIRMED Sodium Level 139 MEQ/L 137 MEQ/L Potassium Level 3.0 MEQ/L 3.6 MEQ/L Chloride Level 98 MEQ/L 100 MEQ/L Carbon Dioxide Level 33.7 MEQ/L 27.6 MEQ/L Anion Gap 7 MEQ/L 9 MEQ/L Blood Urea Nitrogen 13 MG/DL 17 MG/DL Creatinine 1.10 MG/DL 1.15 MG/DL Estimat Glomerular Filtration 65 ML/MIN 62 ML/MIN Rate Random Glucose 100 MG/DL 142 MG/DL Calcium Level 8.4 MG/DL 8.9 MG/DL Total Bilirubin 0.6 MG/DL Aspartate Amino Transf 32 U/L (AST/SGOT) Alanine Aminotransferase 18 U/L (ALT/SGPT) Alkaline Phosphatase 368 U/L Total Protein 7.0 GM/DL Albumin 2.2 GM/DL Administered Medications Medications (Trade) Dose Ordered Sig/Jung Route PRN Reason Start Time Stop Time Status Last Admin Dose Admin Senna/Docusate Sodium (Gianna-Colace) 1 tab BID PO 01/03/17 21:00 01/16/17 09:15 Bisacodyl (Dulcolax Supp) 10 mg DAILY PRN RECTAL SEVERE CONSITIPATION 01/03/17 18:45 01/12/17 17:11 Pravastatin Sodium (Pravachol) 20 mg HS PO 01/03/17 22:00 01/15/17 19:49 Amlodipine Besylate (Norvasc) 10 mg DAILY PO 01/04/17 09:00 01/16/17 09:00 Metoprolol Tartrate (Lopressor) 100 mg DAILY@08 PO 01/04/17 08:00 01/16/17 09:00 IV Flush (NS Flush) 2 ml BID IV FLUSH 01/07/17 21:00 01/16/17 09:00 Pantoprazole Sodium (Protonix) 40 mg HS PO 01/07/17 21:00 01/15/17 19:49 Docusate Calcium (Surfak) 240 mg HS PO 01/07/17 21:00 01/15/17 19:49 Acetaminophen (Tylenol) 650 mg Q4H PRN PO TEMPERATURE > 101 F 01/07/17 12:45 01/15/17 12:35 Oxycodone/ Acetaminophen (Percocet 10-325 Mg) 1 tab Q4H PRN PO PAIN SCALE 1-7 01/12/17 21:00 01/13/17 21:56 Sodium Chloride 5 ml 5 ml UNSCH PRN IVF SEE PROTOCOL 01/14/17 15:30 01/15/17 19:53 Sodium Chloride 250 ml @ 0 mls/hr Q24H IV 01/15/17 14:00 01/18/17 13:59 01/15/17 15:43 Etoposide/Sodium Chloride (Vepesid Inj/NS 500 ml ([place] Bag) Inj) 509.1 ml @ 509.1 mls/ hr Q24H IV 01/15/17 15:00 01/17/17 15:59 01/15/17 16:55 Heparin Sodium (Porcine) (Heparin Inj) 5,000 units Q12HR SQ 01/15/17 21:00 01/16/17 09:00 Objective Remarks GENERAL: Elderly male asleep in no distress. SKIN: Warm and dry. HEAD: Normocephalic. EYES: No injection or drainage. NECK: Supple, trachea midline. CARDIOVASCULAR: + S1/S2. No murmur. RESPIRATORY: Clear but diminished anteriorly. On 2.5 L nasal cannula GASTROINTESTINAL: Abdomen soft, non-tender, nondistended. EXTREMITIES: No cyanosis. No edema. NEUROLOGICAL: No obvious focal deficit. Awake, alert, and oriented x3. Assessment/Plan Problem List: (1) Small cell lung carcinoma Status: Acute Plan: -- Newly diagnosed -- Start chemotherapy while inpatient Assessment 76y/o male with newly diagnosed SCLC Plan 1. Tolerated chemotherapy well yesterday 2. Continue chemotherapy with etoposide today and tomorrow 3. He will likely be discharged Tuesday after chemotherapy or possibly Tuesday morning 4. He will need to follow-up with Dr. Poole in the clinic as outpatient Attending Statement The exam, history, and the medical decision-making described in the above note were completed with the assistance of the mid-level provider. I reviewed and agree with the findings presented. I attest that I had a [id number] encounter with the patient on the same day, and personally performed and documented my assessment and findings in the medical record. Tolerated Day#1 chemo very well. No significant side effect. Continue chemo protocol. Possible d/c after chemo tomorrow or Tues if stable. Regina Del Cid Jan 16, 2017 11:10 Amrik Osborn MD Jan 16, 2017 11:43
[2017-01-16] MEDS: SODIUM CHLOR 0.9% 250 ML INJ 250 ML IV SCH (14:00)
[2017-01-16] MEDS: DEXAMETHASONE INJ 10 MG in SODIUM CHLORIDE 0.9% INJ 50 ML IV SCH (16:50)
[2017-01-16] MEDS: ETOPOSIDE IV SCH (17:26)
[2017-01-16] MEDS: NS IV SCH (17:26)
[2017-01-16] MEDS: PRAVASTATIN SOD 20 MG TAB PO SCH (20:45)
[2017-01-16] MEDS: METOPROLOL TARTRATE 50 MG TAB PO SCH (20:45)
[2017-01-16] MEDS: DOCUSATE CALCIUM 240 MG CAP PO SCH (20:45)
[2017-01-16] MEDS: PANTOPRAZOLE SOD 40 MG DELAYED RELEASE TAB PO SCH (20:45)
[2017-01-17] VITALS (12 sets, daily range): BP systolic 131–151; BP diastolic 73–88; PULSE 64–79; RESP 16–20; TEMP 96.3–99.3; O2SAT 92–96
[2017-01-17 06:45] LABS: AUTOMATED NEUTROPHIL # 7.5 TH/MM3 (1.8-7.7); BASOPHIL % 0.1 % (0.0-2.0); HEMO FLAGS DIFF FINAL; LYMPH % 8.8 % (9.0-44.0); LYMPHOCYTE # 0.8 TH/MM3 (1.0-4.8); MEAN CELL VOLUME 89.2 FL (80.0-100.0); MEAN CORPUSCULAR HEMOGLOBIN 30.3 PG (27.0-34.0); NEUT % 85.1 % (16.0-70.0); PLATELET COUNT 289 TH/MM3 (150-450); RED BLOOD COUNT 4.37 MIL/MM3 (4.50-5.90); RED CELL DISTRIBUTION WIDTH 13.4 % (11.6-17.2); WHITE BLOOD COUNT 8.8 TH/MM3 (4.0-11.0)
[2017-01-17 06:56] LABS: POTASSIUM 3.1 MEQ/L (3.5-5.1)
[2017-01-17] MEDS: SODIUM CHLORIDE 0.9% FLUSH 5 ML FLUSH IV FLUSH SCH ×2 (09:00→21:22)
[2017-01-17] MEDS: DOCUSATE SODIUM 50 MG/SENNA 8.6 MG TAB PO SCH ×2 (09:00→21:16)
[2017-01-17] MEDS ORDERED: OXYC1TAB63 PO (09:51)
--- NOTE | 2017-01-17 09:51 | HHI.DS ---
Discharge Summary Admission Date Jan 03, 2017 at 18:45 Discharge Date: Jan 17, 2017 Admitting Diagnosis L Lung Effusion; Dyspnea (1) Pleural effusion ICD Code: J90 Diagnosis: Principal (2) Hypoxia ICD Code: R09.02 (3) Hypokalemia ICD Code: E87.6 Diagnosis: Principal Procedures Left thorascopic exploration for drainage of the loculated pleural effusion, lysis of adhesions, pleural biopsies, talc pleurodesis 01/07/17 Brief History - From Admission 76-year-old male with history of hypertension, CAD, hyperlipidemia, BPH, asthma/ possible COPD, BPH and head trauma after a fall 2016. Patient report about 6 weeks ago he had fluid [place] from [place] in [place]. Patient also recently admitted 12/20/2016 secondary to left pleural effusion for which intervention radiology was consulted and he underwent left ultrasound- guided thoracentesis with removal 2.4 L fluid out which was sent for cytology- negative for malignancy. Patient returned to ER today due to shortness of breath and nonproductive cough. CXR reveals persistent moderate to large left pleural effusion. Pulse oximetry on arrival 84% on room air which improved to 93 - 96 % on 2 L oxygen via nasal cannula. Patient denies fevers, chills, nausea, vomiting, diarrhea, constipation, black tarry stools, BRBPR, recent travel or chest pain. CBC/BMP: 01/17/17 0557 01/17/17 0557 Significant Findings Laboratory Tests Test 01/15/17 01/16/17 01/17/17 14:05 03:50 05:57 Red Blood Count 4.12 MIL/MM3 4.37 MIL/MM3 (4.50-5.90) (4.50-5.90) Hemoglobin 12.8 GM/DL (13.0-17.0) Hematocrit 36.3 % (39.0-51.0) Neutrophils (%) (Auto) 76.6 % 88.3 % 85.1 % (16.0-70.0) (16.0-70.0) (16.0-70.0) Monocytes (%) (Auto) 12.2 % (0.0-8.0) Lymphocytes # (Auto) 0.6 TH/MM3 0.5 TH/MM3 0.8 TH/MM3 (1.0-4.8) (1.0-4.8) (1.0-4.8) Potassium Level 3.0 MEQ/L 3.1 MEQ/L (3.5-5.1) (3.5-5.1) Carbon Dioxide Level 33.7 MEQ/L (21.0-32.0) Estimat Glomerular Filtration 65 ML/MIN (>89) 62 ML/MIN (>89) 64 ML/MIN (>89) Rate Calcium Level 8.4 MG/DL (8.5-10.1) Lymphocytes (%) (Auto) 8.8 % 8.8 % (9.0-44.0) (9.0-44.0) Random Glucose 142 MG/DL (74-106) Alkaline Phosphatase 368 U/L (45-117) Albumin 2.2 GM/DL (3.4-5.0) Blood Urea Nitrogen 21 MG/DL (7-18) Imaging Last Impressions Chest X-Ray 01/14/17 0600 Signed Impressions: Service Date/Time: Saturday, January 14, 2017 12:03 - CONCLUSION: There is no pneumothorax. Enoch De La Paz MD FACR Port Line Insertion 01/14/17 0000 Signed Impressions: Service Date/Time: Saturday, January 14, 2017 15:07 - CONCLUSION: Uncomplicated ultrasound and fluoroscopic guided implanted central venous port catheter placement as described in detail above. An 8 [place] Power port was placed. Jorge Matute MD Bone Scan Nuclear Medicine 01/14/17 0000 Signed Impressions: Service Date/Time: Saturday, January 14, 2017 12:11 - CONCLUSION: Areas of focal uptake involving ribs as described. The most suspicious uptake involves the posterolateral right sixth rib. Jairo Mosley MD Brain MRI 01/13/17 0000 Signed Impressions: Service Date/Time: December 19:40 - CONCLUSION: No evidence of metastatic disease. Yovany Tomlin MD Abdomen/Pelvis CT 01/13/17 0000 Signed Impressions: Service Date/Time: December 18:50 - CONCLUSION: 1. The liver is inhomogeneous with multiple subtle low attenuation areas in the right and left lobe which are of concern for metastatic disease. There are apparent simple cysts as well. 2. Known abnormalities in the left lung base again noted with loculated fluid and consolidation. Yovany Tomlin MD Chest Tube Insertion 01/11/17 0000 Signed Impressions: Service Date/Time: Wednesday, January 11, 2017 15:32 - CONCLUSION: Uncomplicated 8 [place] nonlocking pigtail chest tube placement as above. Kelvin Olmstead MD Chest CT 01/10/17 0000 Signed Impressions: Service Date/Time: Tuesday, January 10, 2017 13:41 - CONCLUSION: Normal left chest surgery with thoracostomy tubes in place. There is a single dominant residual loculated pleural fluid collection posteriorly in the left mid to upper chest. Basilar consolidation with some degree of cavitary change. Minimal non- loculated basilar pleural fluid Jairo Mosley MD Renal Ultrasound 01/09/17 0000 Signed Impressions: Service Date/Time: Monday, January 09, 2017 13:36 - CONCLUSION: 1. Echogenic kidneys typically seen with medical renal disease. Hydronephrosis is not seen on either side. 2. Possible mild stripping renal stones seen bilaterally. 3. Bilateral renal cysts. 4. Impression on the bladder floor from the prostate. Jairo Crowley MD PE at Discharge GENERAL: in NAD CARDIOVASCULAR: Regular rate and rhythm without murmurs, gallops, or rubs. RESPIRATORY bilateral basilar crackles. No rhonchi or wheezing noted. No accessory muscle use. GASTROINTESTINAL: Abdomen soft, non-tender, nondistended. MUSCULOSKELETAL: No cyanosis, or edema. BACK: Nontender without obvious deformity. No CVA tenderness. Alert awake and oriented 3. Pt update on day of discharge Awaiting for O2 delivery. Denies chest goodwin or sob at this time. No n/v/d/c. Eating well. Hospital Course Mr. Austin 76 year old male patient with hypoxia and recurrent/persistent pleural effusion. Newly diagnosed small cell lung cancer -Oncologist following, port placed 01/14/17, started induction chemotherapy 08/03. Bone scan possibly with metastatic disease in the rib area. MRI brain negative for any metastases. CT scan of the abdomen shows possible liver metastases. Acute respiratory failure/ Left-sided pleural effusion - On nasal cannula oxygen. Continues to improve. Try to wean from oxygen.CT thorax/chest shows loculated pleural effusions with pleural masses. Pulmonology ad CT surgery consults appreciated. Status post left thorascopic exploration for drainage of the loculated pleural effusion, lysis of adhesions, pleural biopsies, talc pleurodesis 01/07/17. Cytology and cultures negative. Pathology shows small cell carcinoma.Repeat CT of the chest showed a single dominant residual loculated pleural fluid collection posteriorly in the left mid to upper chest. Basilar consolidation with some degree of cavitary change. Minimal non-loculated basilar pleural fluid. -Left chest tube placed by IR on 01/11/2017 and removed 01/13/17. Cleared by cardiothoracic surgery. Hypertension-controlled, continue Norvasc, increase metoprolol. Acute renal failure -Improved with IV fluids. Good urine output. -Renal ultrasound shows medical renal disease. There is no obstruction shown. Hypokalemia The patient says he always has low potassium. - replete and monitor. Hyperglycemia Glucose level slightly elevated. He was told he has borderline diabetes. - ISS. - Hemoglobin A1c 5.7. Full code. SCDs. Heparin for DVT prophylaxis Discharge Planning Wean from oxygen. Do walking test. Pt Condition on Discharge: Stable Discharge Disposition: Disch w/ Home Health Serv Discharge Time: > 30 minutes Discharge Instructions DIET: Follow Instructions for: As Tolerated, No Restrictions Activities you can perform: Regular-No Restrictions Follow up Referrals: Appointment for Follow Up with Yola Crouch MD Oncology - 3-5 Days PCP Follow-up with Magali Marmolejo Md New Medications: Oxycodone-Acetaminophen (Oxycodone-Acetaminophen) 5-325 mg Tab 1-2 TAB PO Q4H PRN PAIN #20 Ref 0 TAB Oxygen (O2) (Oxygen (O2)) Device 2 LITER OMAR.CANULA CONTINUOUS Oxygen Concentrator Portable Gaseous 2 L/min via Nasal Canula Continuous For 99 months Prevent Hypoxemia #2 CYLINDER Continued Medications: Amlodipine (Norvasc) 10 Mg Tab 10 MG PO DAILY Blood Pressure Management #[address] Ref [address] (Aspirin EC) 81 Mg Tabdr 81 MG PO DAILY Ref 0 TAB Ipratropium-Albuterol Inh (Combivent Respimat Inh) 20-100 Longterm/Act Aero 1 PUFF INH QID Asthma Management #1 Ref 0 INHALER Krill Oil (Megared [place]-3 Krill Oil) 500 Mg Cap 1 CAP PO DAILY Lovastatin (Lovastatin) 20 Mg Tab 20 MG PO DAILY Cholesterol Management #30 Ref 0 TAB Metoprolol Tartrate (Metoprolol Tartrate) 100 Mg Tab 100 MG PO AC BREAKFAST #30 Ref 0 TAB Metoprolol Tartrate (Metoprolol Tartrate) 50 Mg Tab 50 MG PO HS #30 Ref 0 TAB Multiple Vitamins W/ Minerals (Centrum Silver) 1 Chw Chw 1 TAB PO DAILY Zoey Zapata MD Jan 17, 2017 09:51
[2017-01-17] MEDS: METOPROLOL TARTRATE 100 MG TAB PO SCH (09:52)
[2017-01-17] MEDS: HEPARIN SODIUM - SQ 10,000 UNITS/ML VIAL SQ SCH ×2 (09:52→21:20)
[2017-01-17] MEDS: SODIUM CHLORIDE 0.9% FLUSH 10 ML FLUSH IVF PRN ×2 (09:52→16:29)
--- NOTE | 2017-01-17 09:53 | HHI.FF ---
Face to Face Verification Diagnosis: (1) Benign hypertension (2) Hypokalemia (3) Pleural effusion (4) Hypoxia (5) Small cell lung carcinoma Physical Therapy Order: Evaluate and Treat Home Health Nursing Order: Medical education Signs/symptoms of disease process Oxygen administration education Medication education-adverse effect Nursing assessment with vital signs I have seen patient Russel AustinJr on 01/17/17. My clinical findings support the need for the requested home health care services because: Ltd mobility - disease progression Patient has SOB I certify that my clinical findings support that this patient is homebound because: Post-op weakness Zoey Zapata MD Jan 17, 2017 09:53
--- NOTE | 2017-01-17 10:43 | PD.ONC.PN ---
Subjective Subjective Remarks Afebrile overnight. Patient resting in bed. Tolerating chemotherapy. No symptoms. Breathing comfortably. Objective Data Date Time Temp Pulse Resp B/P Pulse Ox O2 Delivery O2 Flow Rate FiO2 01/17/17 09:00 96.6 76 16 140/88 92 01/17/17 04:00 68 01/17/17 04:00 96.8 69 16 151/80 94 01/17/17 00:05 71 01/17/17 00:00 97.6 71 16 143/79 94 01/16/17 21:14 Nasal Cannula 3.00 01/16/17 20:40 94 Nasal Cannula 2.50 01/16/17 20:02 75 01/16/17 20:00 98.0 82 18 158/88 94 01/16/17 12:00 96.6 81 18 135/84 95 01/16/17 12:00 97.0 73 18 128/82 95 01/17/17 01/17/17 01/17/17 07:00 15:00 23:00 Intake Total 240 ml Output Total 350 ml Balance -110 ml Result Diagram: 01/17/17 0557 01/17/17 0557 Laboratory Results Laboratory Tests Test 01/17/17 05:57 White Blood Count 8.8 TH/MM3 Red Blood Count 4.37 MIL/MM3 Hemoglobin 13.2 GM/DL Hematocrit 39.0 % Mean Corpuscular Volume 89.2 FL Mean Corpuscular Hemoglobin 30.3 PG Mean Corpuscular Hemoglobin 34.0 % Concent Red Cell Distribution Width 13.4 % Platelet Count 289 TH/MM3 Mean Platelet Volume 7.7 FL Neutrophils (%) (Auto) 85.1 % Lymphocytes (%) (Auto) 8.8 % Monocytes (%) (Auto) 6.0 % Eosinophils (%) (Auto) 0.0 % Basophils (%) (Auto) 0.1 % Neutrophils # (Auto) 7.5 TH/MM3 Lymphocytes # (Auto) 0.8 TH/MM3 Monocytes # (Auto) 0.5 TH/MM3 Eosinophils # (Auto) 0.0 TH/MM3 Basophils # (Auto) 0.0 TH/MM3 CBC Comment DIFF FINAL Differential Comment Sodium Level 138 MEQ/L Potassium Level 3.1 MEQ/L Chloride Level 100 MEQ/L Carbon Dioxide Level 28.0 MEQ/L Anion Gap 10 MEQ/L Blood Urea Nitrogen 21 MG/DL Creatinine 1.12 MG/DL Estimat Glomerular Filtration 64 ML/MIN Rate Random Glucose 105 MG/DL Calcium Level 8.5 MG/DL Administered Medications Medications (Trade) Dose Ordered Sig/Jung Route PRN Reason Start Time Stop Time Status Last Admin Dose Admin Senna/Docusate Sodium (Gianna-Colace) 1 tab BID PO 01/03/17 21:00 01/16/17 09:15 Bisacodyl (Dulcolax Supp) 10 mg DAILY PRN RECTAL SEVERE CONSITIPATION 01/03/17 18:45 01/12/17 17:11 Pravastatin Sodium (Pravachol) 20 mg HS PO 01/03/17 22:00 01/16/17 20:45 Amlodipine Besylate (Norvasc) 10 mg DAILY PO 01/04/17 09:00 01/17/17 09:52 Metoprolol Tartrate (Lopressor) 100 mg DAILY@08 PO 01/04/17 08:00 01/17/17 09:52 IV Flush (NS Flush) 2 ml BID IV FLUSH 01/07/17 21:00 01/16/17 20:46 Pantoprazole Sodium (Protonix) 40 mg HS PO 01/07/17 21:00 01/16/17 20:45 Docusate Calcium (Surfak) 240 mg HS PO 01/07/17 21:00 01/16/17 20:45 Acetaminophen (Tylenol) 650 mg Q4H PRN PO TEMPERATURE > 101 F 01/07/17 12:45 01/15/17 12:35 Oxycodone/ Acetaminophen (Percocet 10-325 Mg) 1 tab Q4H PRN PO PAIN SCALE 1-7 01/12/17 21:00 01/13/17 21:56 Sodium Chloride 5 ml 5 ml UNSCH PRN IVF SEE PROTOCOL 01/14/17 15:30 01/17/17 09:52 Sodium Chloride 250 ml @ 0 mls/hr Q24H IV 01/15/17 14:00 01/18/17 13:59 01/16/17 14:00 Etoposide 182 mg/ Sodium Chloride 509.1 ml @ 509.1 mls/ hr Q24H IV 01/15/17 15:00 01/17/17 15:59 01/16/17 17:26 Dexamethasone Sodium Phosphate/ Sodium Chloride (Decadron Inj/NS Inj) 52.5 ml @ 210 mls/hr Q24H IV 01/16/17 14:30 01/17/17 14:44 01/16/17 16:50 Heparin Sodium (Porcine) (Heparin Inj) 5,000 units Q12HR SQ 01/15/17 21:00 01/17/17 09:52 Metoprolol Tartrate (Lopressor) 75 mg HS PO 01/16/17 21:00 01/16/17 20:45 Objective Remarks GENERAL: Elderly male, upright in bed in NAD SKIN: Warm and dry. HEAD: Normocephalic. EYES: No injection or drainage. NECK: Supple, trachea midline. CARDIOVASCULAR: Regular rate and rhythm RESPIRATORY: Breath sounds equal bilaterally. No accessory muscle use. GASTROINTESTINAL: Abdomen soft, non-tender, nondistended. EXTREMITIES: No cyanosis. NEUROLOGICAL: awake and alert, normal speech. moving all extremities. Assessment/Plan Assessment 76y/o male with newly diagnosed SCLC Plan 1. last day of chemotherapy today 2. follow up in clinic in a week 3. d/c tomorrow morning 4. O2 walk test today Janine Aguirre Jan 17, 2017 10:42 Chris Poole MD Jan 18, 2017 09:59
--- NOTE | 2017-01-17 11:20 | HHI.PR ---
Subjective Remarks In the chair. Says his last chemo is tonight. Denies cp, sob, n/v/d/c. Eating well. Doesn't feel comfortable to live tonight home. No fever or chills. Objective Vitals Vital Signs Date Time Temp Pulse Resp B/P Pulse Ox O2 Delivery O2 Flow Rate FiO2 01/17/17 09:00 96.6 76 16 140/88 92 01/17/17 08:00 79 01/17/17 08:00 Nasal Cannula 2.00 01/17/17 04:00 68 01/17/17 04:00 96.8 69 16 151/80 94 01/17/17 00:05 71 01/17/17 00:00 97.6 71 16 143/79 94 01/16/17 21:14 Nasal Cannula 3.00 01/16/17 20:40 94 Nasal Cannula 2.50 01/16/17 20:02 75 01/16/17 20:00 98.0 82 18 158/88 94 01/16/17 12:00 96.6 81 18 135/84 95 01/16/17 12:00 97.0 73 18 128/82 95 I/O 01/16/17 01/16/17 01/16/17 01/17/17 01/17/17 01/17/17 07:00 15:00 23:00 07:00 15:00 23:00 Intake Total 480 ml 1200 ml 240 ml Output Total 925 ml 450 ml 300 ml 350 ml Balance -445 ml 750 ml -300 ml -110 ml Intake Oral 480 ml 1200 ml 240 ml Output Urine Total 925 ml 450 ml 300 ml 350 ml # Bowel Movements 0 Result Diagram: 01/17/17 0557 01/17/17 0557 Imaging Last Impressions Chest X-Ray 01/14/17 0600 Signed Impressions: Service Date/Time: Saturday, January 14, 2017 12:03 - CONCLUSION: There is no pneumothorax. Enoch De La Paz MD FACR Port Line Insertion 01/14/17 0000 Signed Impressions: Service Date/Time: Saturday, January 14, 2017 15:07 - CONCLUSION: Uncomplicated ultrasound and fluoroscopic guided implanted central venous port catheter placement as described in detail above. An 8 [place] Power port was placed. Jorge Matute MD Bone Scan Nuclear Medicine 01/14/17 0000 Signed Impressions: Service Date/Time: Saturday, January 14, 2017 12:11 - CONCLUSION: Areas of focal uptake involving ribs as described. The most suspicious uptake involves the posterolateral right sixth rib. Jairo Mosley MD Brain MRI 01/13/17 0000 Signed Impressions: Service Date/Time: December 19:40 - CONCLUSION: No evidence of metastatic disease. Yovany Tomlin MD Abdomen/Pelvis CT 01/13/17 0000 Signed Impressions: Service Date/Time: December 18:50 - CONCLUSION: 1. The liver is inhomogeneous with multiple subtle low attenuation areas in the right and left lobe which are of concern for metastatic disease. There are apparent simple cysts as well. 2. Known abnormalities in the left lung base again noted with loculated fluid and consolidation. Yovany Tomlin MD Chest Tube Insertion 01/11/17 0000 Signed Impressions: Service Date/Time: Wednesday, January 11, 2017 15:32 - CONCLUSION: Uncomplicated 8 [place] nonlocking pigtail chest tube placement as above. Kelvin Olmstead MD Chest CT 01/10/17 0000 Signed Impressions: Service Date/Time: Tuesday, January 10, 2017 13:41 - CONCLUSION: Normal left chest surgery with thoracostomy tubes in place. There is a single dominant residual loculated pleural fluid collection posteriorly in the left mid to upper chest. Basilar consolidation with some degree of cavitary change. Minimal non- loculated basilar pleural fluid Jiaro Mosley MD Renal Ultrasound 01/09/17 0000 Signed Impressions: Service Date/Time: Monday, January 09, 2017 13:36 - CONCLUSION: 1. Echogenic kidneys typically seen with medical renal disease. Hydronephrosis is not seen on either side. 2. Possible mild stripping renal stones seen bilaterally. 3. Bilateral renal cysts. 4. Impression on the bladder floor from the prostate. Jairo Crowley MD Objective Remarks GENERAL: Pleasant elderly male, in NAD CARDIOVASCULAR: Regular rate and rhythm without murmurs, gallops, or rubs. RESPIRATORY bilateral basilar crackles. No rhonchi or wheezing noted. No accessory muscle use. GASTROINTESTINAL: Abdomen soft, non-tender, nondistended. MUSCULOSKELETAL: No cyanosis, or edema. BACK: Nontender without obvious deformity. No CVA tenderness. Neuro: Alert awake and oriented 3. Moves all extremities. Procedures Left thorascopic exploration for drainage of the loculated pleural effusion, lysis of adhesions, pleural biopsies, talc pleurodesis 01/07/17 A/P Problem List: (1) Pleural effusion ICD Code: J90 Status: Acute (2) Hypoxia ICD Code: R09.02 Status: Acute (3) Hypokalemia ICD Code: E87.6 Status: Acute Assessment and Plan Mr. Austin 76 year old male patient with hypoxia and recurrent/persistent pleural effusion. Newly diagnosed small cell lung cancer -Oncologist following, port placed 01/14/17, started induction chemotherapy 08/03. Bone scan possibly with metastatic disease in the rib area. MRI brain negative for any metastases. CT scan of the abdomen shows possible liver metastases. Acute respiratory failure/ Left-sided pleural effusion - On nasal cannula oxygen. Continues to improve. Try to wean from oxygen.CT thorax/chest shows loculated pleural effusions with pleural masses. Pulmonology ad CT surgery consults appreciated. Status post left thorascopic exploration for drainage of the loculated pleural effusion, lysis of adhesions, pleural biopsies, talc pleurodesis 01/07/17. Cytology and cultures negative. Pathology shows small cell carcinoma.Repeat CT of the chest showed a single dominant residual loculated pleural fluid collection posteriorly in the left mid to upper chest. Basilar consolidation with some degree of cavitary change. Minimal non-loculated basilar pleural fluid. -Left chest tube placed by IR on 01/11/2017 and removed 01/13/17. Cleared by cardiothoracic surgery. Hypertension-controlled, continue Norvasc, increase metoprolol. Acute renal failure -Improved with IV fluids. Good urine output. -Renal ultrasound shows medical renal disease. There is no obstruction shown. Hypokalemia The patient says he always has low potassium. - replete and monitor. Hyperglycemia Glucose level slightly elevated. He was told he has borderline diabetes. - ISS. - Hemoglobin A1c 5.7. Full code. SCDs. Heparin for DVT prophylaxis Discharge Planning Wean from oxygen, discharge Tuesday or Tuesday after induction chemotherapy to home. Do walking O2 test. Discussed with the patient and hem/onc service. Patient to be discharged tomorrow morning per hem/onc Zoey Zapata MD Jan 17, 2017 11:20
[2017-01-17] MEDS ORDERED: OXYGENDME NAS.CANULA (14:15)
[2017-01-17] MEDS: DEXAMETHASONE INJ 10 MG in SODIUM CHLORIDE 0.9% INJ 50 ML IV SCH (15:52)
[2017-01-17] MEDS: SODIUM CHLOR 0.9% 250 ML INJ 250 ML IV SCH (16:30)
[2017-01-17] MEDS: ETOPOSIDE IV SCH (16:36)
[2017-01-17] MEDS: NS IV SCH (16:36)
[2017-01-17] MEDS ORDERED: WITCH HAZEL 50%/GLYCERIN 12.5% 40 PAD JAR TOPICAL PRN (19:30)
[2017-01-17] MEDS: METOPROLOL TARTRATE 50 MG TAB PO SCH (21:17)
[2017-01-17] MEDS: DOCUSATE CALCIUM 240 MG CAP PO SCH (21:17)
[2017-01-17] MEDS: PANTOPRAZOLE SOD 40 MG DELAYED RELEASE TAB PO SCH (21:17)
[2017-01-17] MEDS: PRAVASTATIN SOD 20 MG TAB PO SCH (21:18)
[2017-01-18] VITALS (7 sets, daily range): BP systolic 125–163; BP diastolic 69–75; PULSE 54–78; RESP 16–20; TEMP 96.2–97.8; O2SAT 93–99
[2017-01-18] MEDS: DOCUSATE SODIUM 50 MG/SENNA 8.6 MG TAB PO SCH (09:00)
[2017-01-18] MEDS: SODIUM CHLORIDE 0.9% FLUSH 5 ML FLUSH IV FLUSH SCH (09:00)
[2017-01-18] MEDS: SODIUM CHLORIDE 0.9% FLUSH 10 ML FLUSH IVF PRN (09:27)
[2017-01-18] MEDS: METOPROLOL TARTRATE 100 MG TAB PO SCH (09:27)
[2017-01-18] MEDS: HEPARIN SODIUM - SQ 10,000 UNITS/ML VIAL SQ SCH (09:28)
--- NOTE | 2017-01-18 09:40 | PD.CAR.PN ---
CVT Progress Note Subjective/Hospital Course: c/o pain related to chest tubes 01/09/17 Creatinine up. Patient has no complaints. Weight is down quite a bit since admission. 01/10/17 no complaints today renal function improving continues on 4 liters NC 01/11/17 no complaints Still on 4 liters NC 01/12/17 no complaints. On less O2 now s/p radiology drainage procedure. 01/13/17 No complaints. Continues on 4liters NC 7/ dressing removed from right chest wall / incision intact right postero chest and to prior chest tube sites/ cleansed with ChloraPrep for dc home today prn f/u in our office Objective: GENERAL: SKIN: Warm and dry. incisions intact and well approximated to right chest area HEAD: Normocephalic. EYES: No scleral icterus. No injection or drainage. NECK: Supple, trachea midline. No JVD or lymphadenopathy. CARDIOVASCULAR: Regular rate and rhythm without murmurs, gallops, or rubs. RESPIRATORY: Breath sounds equal bilaterally. No accessory muscle use. GASTROINTESTINAL: Abdomen soft, non-tender, nondistended. MUSCULOSKELETAL: No cyanosis, or edema. BACK: Nontender without obvious deformity. No CVA tenderness. Vital Signs Date Time Temp Pulse Resp B/P Pulse Ox O2 Delivery O2 Flow Rate FiO2 01/18/17 08:00 96.2 67 20 154/75 93 01/18/17 06:06 54 01/18/17 04:00 97.5 63 16 163/73 99 01/18/17 00:45 97.8 61 16 125/75 94 01/18/17 00:04 63 01/17/17 21:47 99.3 75 18 131/73 95 01/17/17 21:25 Nasal Cannula 2.00 01/17/17 20:00 79 01/17/17 18:14 95 Nasal Cannula 2.00 01/17/17 16:45 97.3 64 18 139/76 95 01/17/17 16:00 96.3 67 18 142/82 95 01/17/17 16:00 68 01/17/17 12:00 96.5 75 20 142/88 96 01/17/17 09:47 93 Nasal Cannula 2.00 Result Diagram: 01/17/17 0557 01/17/17 0557 (1) Pleural effusion (2) Small cell lung carcinoma (3) Left thoracoscopic exploration for drainage loculated pleural effusion, lysis of adhesions, pleural biopsies, talc pleuradesis Plan: continue pulm toileting , wound care instructions given prn f/u in our office Elizabeth Quiñonez Jan 18, 2017 09:40
--- NOTE | 2017-01-18 09:48 | PD.ONC.PN ---
Subjective Subjective Remarks feeling a little better. chemo well tolerated. Objective Data Date Time Temp Pulse Resp B/P Pulse Ox O2 Delivery O2 Flow Rate FiO2 01/18/17 08:00 96.2 67 20 154/75 93 01/18/17 06:06 54 01/18/17 04:00 97.5 63 16 163/73 99 01/18/17 00:45 97.8 61 16 125/75 94 01/18/17 00:04 63 01/17/17 21:47 99.3 75 18 131/73 95 01/17/17 21:25 Nasal Cannula 2.00 01/17/17 20:00 79 01/17/17 18:14 95 Nasal Cannula 2.00 01/17/17 16:45 97.3 64 18 139/76 95 01/17/17 16:00 96.3 67 18 142/82 95 01/17/17 16:00 68 01/17/17 12:00 96.5 75 20 142/88 96 01/17/17 09:47 93 Nasal Cannula 2.00 01/18/17 01/18/17 01/18/17 07:00 15:00 23:00 Intake Total 360 ml Output Total 600 ml Balance -240 ml Result Diagram: 01/17/17 0557 01/17/1757 Administered Medications Medications (Trade) Dose Ordered Sig/Jung Route PRN Reason Start Time Stop Time Status Last Admin Dose Admin Senna/Docusate Sodium (Gianna-Colace) 1 tab BID PO 01/03/17 21:00 01/18/17 09:00 Bisacodyl (Dulcolax Supp) 10 mg DAILY PRN RECTAL SEVERE CONSITIPATION 01/03/17 18:45 01/12/17 17:11 Pravastatin Sodium (Pravachol) 20 mg HS PO 01/03/17 22:00 01/17/17 21:18 Amlodipine Besylate (Norvasc) 10 mg DAILY PO 01/04/17 09:00 01/18/17 09:27 Metoprolol Tartrate (Lopressor) 100 mg DAILY@08 PO 01/04/17 08:00 01/18/17 09:27 IV Flush (NS Flush) 2 ml BID IV FLUSH 01/07/17 21:00 01/18/17 09:00 Pantoprazole Sodium (Protonix) 40 mg HS PO 01/07/17 21:00 01/17/17 21:17 Docusate Calcium (Surfak) 240 mg HS PO 01/07/17 21:00 01/17/17 21:17 Acetaminophen (Tylenol) 650 mg Q4H PRN PO TEMPERATURE > 101 F 01/07/17 12:45 01/15/17 12:35 Oxycodone/ Acetaminophen (Percocet 10-325 Mg) 1 tab Q4H PRN PO PAIN SCALE 1-7 01/12/17 21:00 01/13/17 21:56 Sodium Chloride 5 ml 5 ml UNSCH PRN IVF SEE PROTOCOL 01/14/17 15:30 01/18/17 09:27 Sodium Chloride (NS 250 ml Inj) 250 ml @ 0 mls/hr Q24H IV 01/15/17 14:00 01/18/17 13:59 01/17/17 16:30 Heparin Sodium (Porcine) (Heparin Inj) 5,000 units Q12HR SQ 01/15/17 21:00 01/18/17 09:28 Metoprolol Tartrate (Lopressor) 75 mg HS PO 01/16/17 21:00 01/17/17 21:17 Witch Mey/ Glycerin (Tucks Pads) 1 applic UNSCH PRN TOPICAL HEMORRHOIDS 01/17/17 19:30 01/17/17 21:45 Objective Remarks GENERAL: was able to walk down [place] but occasionally used railing for support. SKIN: Warm and dry. HEAD: Normocephalic. EYES: No scleral icterus. No injection or drainage. NECK: Supple, trachea midline. No JVD or lymphadenopathy. LYMPHATIC: No adenopathy. CARDIOVASCULAR: Regular rate and rhythm without murmurs. RESPIRATORY: decreased sounds left lung GASTROINTESTINAL: Abdomen soft, non-tender, nondistended. EXTREMITIES: No cyanosis, or edema. MUSCULOSKELETAL: Adequate muscle tone. NEUROLOGICAL: No obvious focal deficit. Awake, alert, and oriented x3. PSYCHIATRIC: Appropriate mood and affect; insight and judgment normal. Assessment/Plan Assessment 76y/o male with newly diagnosed SCLC who has completed cycle 1 of chemotherapy. He remains oxygen dependent. O2 sat at rest off oxygen 93%. I had hem walk up and down the [place] without oxygen and the sat dropped to 87% off oxgyen. Plan 1 okay for discharge today. He needs oxygen at home and must use this with activity. he tells me he will have both home O2 and portable oxygen. He has an O2 monitor at home and I asked him to keep sat at 92% and not let go below 90 %. He will need O2 for any activity. 2: I will see him in a week with a cbc and plat count 3: he will continue the same medicines he was taking prior to admission less the aspirin in case he develops thrombocytopenia 4: discharge instructions reviewed with patient and . At this point nothing further to do. Chris Poole MD Jan 18, 2017 09:48
== END 2017-01-18 16:36 | disposition home health service (06) | DRG 166 ==
LOC: NEPE 14:49 → NEDA 18:45 → N04A 21:03 → HCIN 01-07 14:44 → HOCA 01-14 16:06
PROVIDERS: ADMIT Hospitalist; ATTEND Hospitalist
PROC: 3E0F7GC Introduction of Other Therapeutic Substance into Respiratory Tract, Via Natural or Artificial Opening (ICD-10-PCS; principal; 2017-01-03)
PROC: 0BJQ4ZZ Inspection of Pleura, Percutaneous Endoscopic Approach (ICD-10-PCS; 2017-01-07)
PROC: 0BBP4ZX Excision of Left Pleura, Percutaneous Endoscopic Approach, Diagnostic (ICD-10-PCS; 2017-01-07)
PROC: 0W9B40Z Drainage of Left Pleural Cavity with Drainage Device, Percutaneous Endoscopic Approach (ICD-10-PCS; 2017-01-07)
PROC: 3E0L3GC Introduction of Other Therapeutic Substance into Pleural Cavity, Percutaneous Approach (ICD-10-PCS; 2017-01-07)
PROC: 0W9B30Z Drainage of Left Pleural Cavity with Drainage Device, Percutaneous Approach (ICD-10-PCS; 2017-01-11)
PROC: 0JH60XZ Insertion of Tunneled Vascular Access Device into Chest Subcutaneous Tissue and Fascia, Open Approach (ICD-10-PCS; 2017-01-14)
PROC: 05HM33Z Insertion of Infusion Device into Right Internal Jugular Vein, Percutaneous Approach (ICD-10-PCS; 2017-01-14)
PROC: 3E03305 Introduction of Other Antineoplastic into Peripheral Vein, Percutaneous Approach (ICD-10-PCS; 2017-01-14)
DX: C34.90 Malignant neoplasm of unspecified part of unspecified bronchus or lung (principal); J96.01 Acute respiratory failure with hypoxia; N17.9 Acute kidney failure, unspecified; C78.2 Secondary malignant neoplasm of pleura; J90 Pleural effusion, not elsewhere classified; C79.51 Secondary malignant neoplasm of bone; J44.9 Chronic obstructive pulmonary disease, unspecified; Z99.81 Dependence on supplemental oxygen; I12.9 Hypertensive chronic kidney disease with stage 1 through stage 4 chronic kidney disease, or unspecified chronic kidney disease; E87.6 Hypokalemia; N18.9 Chronic kidney disease, unspecified; N40.0 Benign prostatic hyperplasia without lower urinary tract symptoms; E78.5 Hyperlipidemia, unspecified; I25.10 Atherosclerotic heart disease of native coronary artery without angina pectoris; Z86.010 Personal history of colon polyps; Z87.891 Personal history of nicotine dependence; R63.4 Abnormal weight loss; Z87.820 Personal history of traumatic brain injury; Z77.090 Contact with and (suspected) exposure to asbestos; R59.0 Localized enlarged lymph nodes; E78.00 Pure hypercholesterolemia, unspecified; R73.03 Prediabetes
CPT/HCPCS: 32557; 36561; 70553; 71010; 71020; 71250; 74177; 76775; 76937; 77001; 78306; 80048; 80053; 80076; 81001; 82570; 82948; 83036; 83735; 83986; 84132; 84300; 84443; 85025; 85027; 85610; 85730; 86850; 86900; 86901; 87015; 87070; 87102; 87116; 87205; 87206; 87641; 88112; 88305; 88341; 88342; 89051; 93005; 94150; 94620; 94640; 94664; 99152; 99153; A9503; A9579; C1729; C1769; C1788; J0690; J1100; J1626; J1642; J1644; J2250; J2270; J2370; J3010; J3370; J7040; J7050; J7613; J9045; J9181; Q9963; Q9967